=== PATIENT | male | born 1985 | race Caucasian/White ===

== ENCOUNTER 2021-05-07 16:29 | Outpatient (CLI) | payer BC, SELFPAY ==
--- NOTE | ~2021-05-07 | US_ITS ---
EXAMINATION: US abdomen complete DATE: 05/07/2021 16:52 INDICATION: Alcohol dependence in remission. Generalized abdominal pain. TECHNIQUE: Multiple grayscale and Doppler ultrasound images of the abdomen were obtained. COMPARISON: None FINDINGS: The pancreatic head and body are normal in appearance. The pancreatic tail is not visualized. The pr oximal to mid inferior vena cava is normal. Normal abdominal aorta measuring 2.0 cm in diameter proxi myranda, 1.7 cm in the mid aorta and 1.8 cm in the distal aorta. Liver has normal echogenicity and cont our, with a smooth surface. No liver lesion identified. No intrahepatic biliary duct dilation suspect ed. Portal venous flow was seen in the hepatopetal, normal direction and has normal Doppler waveform. The gallbladder is normal in appearance. There is no cholelithiasis. The common bile duct measures 4 mm, which is normal. Sonographic Suh sign was reported as negative by the glass vial bending conveyor feeder. There is normal renal contour and echogenicity bilaterally. The right kidney measures 9.5 x 4.0 x 4.3 cm and the left 9.4 x 5.8 x 5.2 cm. There are no focal renal lesions identified. There is no hydronephrosi s. Normal spleen measuring 7.4 cm in maximal length. IMPRESSION: 1. Normal abdominal ultrasound. Reviewed, dictated and finalized at location A. TION MANAGER
== END 2021-05-07 16:30 ==
LOC: MICIMG 16:30
PROVIDERS: PCP Family Medicine; Visit Provider Physician Assistant Medical
DX: F10.21 Alcohol dependence, in remission (principal); R10.84 Generalized abdominal pain
CPT/HCPCS: 76700

== ENCOUNTER 2021-05-23 01:07 | Day surgery (SDC) | payer BC, SELFPAY ==
[2021-05-13 09:04] VITALS: BMI 23.1
[2021-05-23 06:19] VITALS: BP 113/85; PULSE 124; RESP 17; TEMP 36.6; O2SAT 100; BMI 22.2
[2021-05-23] MEDS: LACTATED RINGERS 1,000 ML 150 ML IV CONT (06:21)
--- NOTE | 2021-05-23 06:54 | P.HP_ITS ---
History of Present Illness History of Present Illness Consent: Risks, benefits, and alternatives have been discussed and questions answered. Patient agrees to proceed with procedure. Chief complaint: diarrhea Narrative: Steve Figueroa is a 35 year old male Review of Systems Review of Systems: All systems reviewed & are unremarkable except as noted in HPI and below PMFSH Past Medical History Medical History Alcoholism Anxiety BMI 22.0-22.9, adult Surgical History Surgical History H/O shoulder surgery Family History Family History Father Hypertension Mother Breast cancer Sibling Hypertension Other Anxiety Depression Social History Social History Smoking status: Former smoker Tobacco type: e-cigarettes/vaping Alcohol intake: former Alcohol use details: Quit 8-9 months ago. Alcohol abuse fifth of vodka per day prior to quitting. 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 Gender identity (if verbalized by the patient): Male Meds Home Medications and Allergies Home Medications Medication Instructions Recorded Confirmed Type buspirone 10 mg tablet 10 mg PO TID 09/20/20 05/23/21 History trazodone 50 mg tablet 50 mg PO QHS PRN 09/20/20 05/23/21 History diphenoxylate-atropine 2.5 1 tablet PO TID PRN #30 tablet 04/30/21 05/23/21 Rx mg-0.025 mg tablet omeprazole 40 mg capsule,delayed 40 mg PO DAILY #30 cap 04/30/21 05/23/21 Rx release vilazodone 20 mg tablet 20 mg PO DAILY #30 tablet 04/30/21 05/23/21 Rx Allergies Allergy/AdvReac Type Severity Reaction Status Date / Time No Known Allergies Allergy Verified 05/23/21 06:18 Vital Signs Vital Signs - 24 hr 05/23/21 06:19 Temperature 36.6 C Pulse Rate 124 H Respiratory Rate 17 Blood Pressure 113/85 Pulse Oximetry 100
--- NOTE | 2021-05-23 07:04 | WPDGICN ---
Assessment and Plan Assessment and plan (1) Diarrhea: Qualifiers: Diarrhea type: unspecified type Qualified Code(s): R19.7 - Diarrhea, unspecified Code(s): R19.7 - Diarrhea, unspecified Status: Acute Assessment and Plan: he is not aware of any specific triggers or food intolerance his, because he has diarrhea every day no matter what he eats. He does not believe that he has been tested for celiac disease. We will proceed with colonoscopy today. I explained the procedures and risks including the possibilities of bleeding or perforation. (2) History of alcoholism: Code(s): F10.21 - Alcohol dependence, in remission Status: Acute Assessment and Plan: He has been sober for about 9 months, with no relapses (3) GERD (gastroesophageal reflux disease): Code(s): K21.9 - Gastro-esophageal reflux disease without esophagitis Status: Acute Assessment and Plan: he takes omeprazole daily. He does not have heartburn or dysphagia. His only other symptom the may be relevant is that he feels gaggy in the morning has of large amount of thick phlegm GI Consult Note Consult date/time: 05/23/21 07:04 HPI: Steve Figueroa is a 35 year old male Was referred to me because of chronic diarrhea. He states that he gave up alcohol about 8 or 9 months ago because he was drinking too much at that time he had noticed that he had had gastrointestinal issues including loose stools. Those symptoms improved quite a bit when he quit using alcohol, at least for a couple of months. Now however he has diarrhea every day with a great deal of urgency, particularly after meal. He may have up to 5 or 6 loose stools per day. He saw blood once in the stool but the toilet flushed automatically before he could ascertain if it really was blood. There has been no weight loss. He does not have any chronic abdominal pain. Lately he has noticed that on waking up in the morning he will feel gag the and will have large amount of phlegm in his throat. He does not however have much in way of heartburn symptoms, although he has been on omeprazole 40 mg a day. His weight has been stable. He is not aware of any family history of inflammatory bowel disease, celiac disease or other digestive diseases. There is a strong family history of malignancies but not gastrointestinal malignancies Review of Systems Review of Systems: All systems reviewed & are unremarkable except as noted in HPI and below PMFSH Past Medical History Medical History Alcoholism Anxiety BMI 22.0-22.9, adult Surgical History Surgical History H/O shoulder surgery Family History Family History Father Hypertension Mother Breast cancer Sibling Hypertension Other Anxiety Depression Social History Social History Smoking status: Former smoker Tobacco type: e-cigarettes/vaping Alcohol intake: former Alcohol use details: Quit 8-9 months ago. Alcohol abuse fifth of vodka per day prior to quitting. 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
--- NOTE | 2021-05-23 07:20 | P.PNAN_ITS ---
Anes - Initial Pre Proc Eval Procedure: Operation Date: 05/23/21 07:30 Proposed Procedures p Colonoscopy - Ernesto Slade MD Date/Time: 05/23/21 07:20 Surgeon: Ernesto Slade MD Pre Op Diagnosis: diarrhea Patient Data Age: 35 Gender: M Height: 1.78 m Weight: 70.4 kg Last Vital Signs Temp 98 F 05/23/21 06:19 Pulse 124 H 05/23/21 06:19 Resp 17 05/23/21 06:19 BP 113/85 05/23/21 06:19 Pulse Ox 100 05/23/21 06:19 Allergies Allergy/AdvReac Type Severity Reaction Status Date / Time No Known Allergies Allergy Verified 05/23/21 06:18 Home Medications Medication Instructions Recorded Confirmed Type buspirone 10 mg tablet 10 mg PO TID 09/20/20 05/23/21 History trazodone 50 mg tablet 50 mg PO QHS PRN 09/20/20 05/23/21 History diphenoxylate-atropine 2.5 1 tablet PO TID PRN #30 tablet 04/30/21 05/23/21 Rx mg-0.025 mg tablet omeprazole 40 mg capsule,delayed 40 mg PO DAILY #30 cap 04/30/21 05/23/21 Rx release vilazodone 20 mg tablet 20 mg PO DAILY #30 tablet 04/30/21 05/23/21 Rx Patient hx anesthesia problems: none Family hx anesthesia problems: none Results Review: All pre-operative results and documents have been reviewed as part of the pre-operative evaluation. [facility] Past Medical History Medical History Alcoholism Anxiety BMI 22.0-22.9, adult Surgical History Surgical History H/O shoulder surgery Family History Family History Father Hypertension Mother Breast cancer Sibling Hypertension Other Anxiety Depression Social History Social History Smoking status: Former smoker Tobacco type: e-cigarettes/vaping Alcohol intake: former Alcohol use details: Quit 8-9 months ago. Alcohol abuse fifth of vodka per day prior to quitting. 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 Informed Consent: The patient's anesthetic plan and its attendant risks and benefits were discussed with the patient/family/POA. Questions were solicited and answers provided to the satisfaction of the patient/family/POA.
[2021-05-23 07:46] VITALS: BP 126/90; PULSE 92; RESP 17; O2SAT 100
[2021-05-23 07:56] VITALS: BP 128/97; PULSE 90; RESP 16; O2SAT 100
[2021-05-23 08:06] VITALS: BP 136/99; PULSE 78; RESP 17; O2SAT 100
--- NOTE | 2021-05-23 08:16 | SUR.PHASEII ---
Pt stated he feels like he poked himself in the eye Dr. Wisdom at bedside. Left eye tearful no redness,pain or light sensitivity. Dr. Wisdom (anesthesia) aware. Instructed pt to call primary care physician if he experiences any sypmtoms of corneal abrasion pt states understanding.
== END 2021-05-23 08:20 | disposition home or self-care (01) ==
PROVIDERS: PCP Family Medicine; Visit Provider Internal Medicine Gastroenterology
PROC: 0DJD8ZZ Inspection of Lower Intestinal Tract, Via Natural or Artificial Opening Endoscopic (ICD-10-PCS; CPT 45378; principal; 2021-05-23 07:30)
DX: R19.7 Diarrhea, unspecified (principal); K64.8 Other hemorrhoids; F10.21 Alcohol dependence, in remission; K21.9 Gastro-esophageal reflux disease without esophagitis; F41.9 Anxiety disorder, unspecified; F12.90 Cannabis use, unspecified, uncomplicated
CPT/HCPCS: 45380; 88305; J2704; J7120

== ENCOUNTER 2021-06-10 08:01 | Outpatient (CLI) | payer BC, SELFPAY ==
--- NOTE | ~2021-06-10 | XR_ITS ---
EXAMINATION: XR UGIAC w small bowel DATE: 06/10/2021 08:54 INDICATION: Diarrhea, unspecified. TECHNIQUE: The patient drank thick barium, gas-producing crystals, and thin barium. Fluoroscopy of th e esophagus, stomach, and small bowel was performed. Fluoroscopy exposure time was 0.5 minutes. Radio graphs of the abdomen were obtained. The total number of images was 279. COMPARISON: None. FINDINGS: UPPER GASTROINTESTINAL SERIES: There is no mass or stricture of the esophagus. Esophageal motility is normal. There is no hiatal her bubba. There was no gastroesophageal reflux with provocative maneuvers. The stomach shows a normal fold ing pattern. SMALL BOWEL SERIES: The small bowel shows a normal folding pattern. Specifically, the terminal ileum is normal. Transit t joann to the colon was 15 minutes. IMPRESSION: 1. Normal upper gastrointestinal series. 2. Normal small bowel series. Reviewed, dictated and finalized at location A. HETER HAND
== END 2021-06-10 08:02 | disposition home or self-care (01) ==
PROVIDERS: PCP Family Medicine; Visit Provider Internal Medicine Gastroenterology
DX: R19.7 Diarrhea, unspecified (principal)
CPT/HCPCS: 74246; 74248

== ENCOUNTER 2022-01-09 09:33 | Outpatient (CLI) | payer BC, SELFPAY ==
--- NOTE | 2022-01-09 11:30 | NEURO_ITS ---
Impression: # Complains of muscle spasms in right lower extremity. # Normal nerve conduction study in both lower extremities. # Needle/EMG exam revealed neurogenic changes in right posterior tibial and gastroc muscles but no active fibs. # Clinical correlation recommended; Higher involvement needs to be ruled out, if MRI of lumbar spine is negative then further evaluation recommended. Nerve Conduction Studies Anti Sensory Summary Table Stim Site NR Peak (ms) P-T Amp (?V) Site1 Site2 Delta-P (ms) Dist (cm) Lukasz (m/s) Left Sup Fibular Anti Sensory (Ant Lat Mall) 14 cm 3.3 22.7 14 cm Ant Lat Mall 3.3 16.0 48 Right Sup Fibular Anti Sensory (Ant Lat Mall) 14 cm 3.4 20.9 14 cm Ant Lat Mall 3.4 16.0 47 Left Sural Anti Sensory (Lat Mall) Calf 4.2 27.5 Calf Lat Mall 4.2 18.0 43 Right Sural Anti Sensory (Lat Mall) Calf 3.3 14.2 Calf Lat Mall 3.3 16.0 48 Motor Summary Table Stim Site NR Onset (ms) O-P Amp (mV) Site1 Site2 Delta-0 (ms) Dist (cm) Lukasz (m/s) Left Peroneal Motor (Vastus Med) Ankle 4.9 4.6 Popit Ankle 9.5 40.0 42 Popit 14.4 3.5 Right Peroneal Motor (Vastus Med) Ankle 4.9 5.2 Popit Ankle 8.2 38.0 46 Popit 13.1 4.8 Left Tibial Motor (Abd Vo Brev) Ankle 5.3 12.8 Knee Ankle 9.5 42.0 44 Knee 14.8 10.6 Right Tibial Motor (Abd Vo Brev) Ankle 5.1 9.6 Knee Ankle 9.6 43.0 45 Knee 14.7 8.2 F Wave Studies NR F-Lat (ms) L-R F-Lat (ms) Left Peroneal (Mrkrs) (EDB) 52.15 0.70 Right Peroneal (Mrkrs) (EDB) 52.85 0.70 Left Tibial (Mrkrs) (Abd Hallucis) 53.48 0.08 Right Tibial (Mrkrs) (Abd Hallucis) 53.40 0.08 EMG Side Muscle Nerve Root Ins Act Fibs Amp Dur Recrt Comment Right AntTibialis Dp Br Fibular L4-5 Nml Nml Nml Nml Nml Right Gastroc Tibial S1-2 Nml Nml Nml >12ms Reduced Right Fibularis Long Sup Br Fibular L5-S1 Nml Nml Nml Nml Nml Right Flex Dig Long Tibial L5-S2 Nml Nml Nml Nml Nml Right Ext Dig Brev Dp Br Fibular L5, S1 Nml Nml Nml Nml Nml Left AntTibialis Dp Br Fibular L4-5 Nml Nml Nml Nml Nml Left Gastroc Tibial S1-2 Nml Nml Nml Nml Nml Left Fibularis Long Sup Br Fibular L5-S1 Nml Nml Nml Nml Nml Left Flex Dig Long Tibial L5-S2 Nml Nml Nml Nml Nml Left Ext Dig Brev Dp Br Fibular L5, S1 Nml Nml Nml Nml Nml MTDD
== END 2022-01-09 09:34 | disposition home or self-care (01) ==
PROVIDERS: PCP Family Medicine; Visit Provider Family Medicine
DX: M62.838 Other muscle spasm (principal)
CPT/HCPCS: 95886; 95910

== ENCOUNTER 2022-01-20 16:23 | Outpatient (CLI) | payer BC, SELFPAY ==
--- NOTE | ~2022-01-20 | MR_ITS ---
. EXAMINATION: MR lumbar spine wo con DATE: 01/20/2022 17:11 INDICATION: Leg weakness. TECHNIQUE: Magnetic resonance imaging (MRI) of the lumbar spine was performed without intravenous con trast. Sequences included sagittal T2-weighted FSE, sagittal T2-weighted FS FSE, sagittal T1-weighted FSE, and axial T2-weighted FSE. COMPARISON: None FINDINGS: There is 3 degrees levocurvature of lumbar spine. Vertebral body heights are normal. There is moderately decreased disc height at L5-S1. The distal spinal cord signal intensity is normal. The conus medullaris is at L1. The following disc levels are specifically discussed: L1-L2: The disc does not extend beyond the endplate margin. There is no facet joint osteoarthritis. T here is no neural foraminal stenosis. There is no central canal stenosis. L2-L3: The disc does not extend beyond the endplate margin. There is mild bilateral facet joint osteo arthritis. There is no neural foraminal stenosis. There is no central canal stenosis. L3-L4: The disc is mildly bulging. There is mild bilateral facet joint osteoarthritis. There is mild bilateral neural foraminal stenosis. There is no central canal stenosis. L4-L5: The disc is bulging. There is mild bilateral facet joint osteoarthritis. There is mild right a nd moderate left neural foraminal stenosis. There is mild central canal stenosis. L5-S1: The disc is bulging and has an annular fissure. There is mild bilateral facet joint osteoarthr itis. There is mild bilateral neural foraminal stenosis. There is mild central canal stenosis. IMPRESSION: 1. Moderate lower lumbar spondylosis. Reviewed, dictated and finalized at location A.
== END 2022-01-20 16:24 ==
LOC: MICIMG 16:24
PROVIDERS: PCP Family Medicine; Visit Provider Family Medicine
DX: R29.898 Other symptoms and signs involving the musculoskeletal system (principal); M47.816 Spondylosis without myelopathy or radiculopathy, lumbar region
CPT/HCPCS: 72148

== ENCOUNTER → 2022-07-16 09:46 | Outpatient (CLI) | payer BC, SELFPAY ==
--- NOTE | ~2022-07-16 | US_ITS ---
EXAMINATION: US soft tissue head and neck DATE: 07/16/2022 10:04 INDICATION: Palpable abnormality at the right side of the neck TECHNIQUE: Multiple grayscale and Doppler ultrasound images of the region of concern at the right nec k were obtained. COMPARISON: None FINDINGS: Therefore mildly prominent, relatively superficial subcutaneous lymph nodes are seen at the region of concern each with typical central fatty hilum and measuring up to 8 mm in maximal short axis diamete r which remains within normal limits. No other abnormal masses or fluid collections identified. IMPRESSION: 1. Elbow abnormality corresponds to a few mildly prominent but still normal-sized relatively superfic ial subcutaneous lymph nodes which are likely reactive. Recommend clinical follow-up with repeat imag ing should there be progression on physical exam or as clinically indicated. Reviewed, dictated and finalized at location B. NISTRATIVE SERVICES COORDINATOR IMPRESSION: 1. Elbow abnormality corresponds to a few mildly prominent but still normal-siz ed relatively superficial subcutaneous lymph nodes which are likely reactive. R ecommend clinical follow-up with repeat imaging should there be progression on physical exam or as clinically indicated.
== END ==
PROVIDERS: PCP Family Medicine; Visit Provider Nurse Practitioner Family
DX: R59.0 Localized enlarged lymph nodes (principal)
CPT/HCPCS: 76536

== ENCOUNTER 2024-11-22 20:28 | Observation (INO) | payer BC, SELFPAY ==
[2024-11-22] VITALS (7 sets, daily range): BP systolic 113–134; BP diastolic 85–100; PULSE 93–106; RESP 16–19; TEMP 36.8; O2SAT 95–98
--- NOTE | ~2024-11-22 | US_ITS ---
US abdomen limited INDICATION: Elevated liver function tests PROCEDURE: Realtime right upper abdominal ultrasound. COMPARISON: No prior studies for comparison. FINDINGS: The pancreas is normal without focal mass or pancreatic ductal dilation. Liver echotexture is increased, consistent with fatty infiltration. No discrete hepatic masses. There is normal direc tional flow in the portal vein. The gallbladder is normal without stones, gallbladder wall thickening or pericholecystic fluid. Comm on bile duct measures 3 mm. No sonographic Suh's sign. IMPRESSION: 1: Fatty infiltration of the liver. Reviewed, dictated and finalized at location A.
--- NOTE | 2024-11-22 20:37 | ECG_ITS ---
Test Date: 2024-11-22 20:43:59 Measurements Intervals [place] Rate: 103 P: 51 ME: 136 QRS: 23 QRSD: 105 T: 48 QT: 353 QTc: 463 Interpretive Statements SINUS TACHYCARDIA INCOMPLETE RIGHT BUNDLE BRANCH BLOCK BORDERLINE ECG No previous ECG available for comparison Electronically Signed On 11-23-2024 06:29:02 CDT by Kirit Wood D.O.
--- OUTSIDE RECORDS SUMMARY | 2024-11-22 20:54 | XMS_ITS | Referral Summary ---
Author Organization [facility] Address [address] [place] [id number] Care Team Providers Care Electronics Technician Name Role Phone Cristofer Gentile MD Primary Care Provider [phone] Allergies No known active allergies Medications traZODone (DESYREL) 50 mg tabletIndicatio ns:SUSAN (generalized anxiety disorder) Take 1 tablet (50 mg total) by mouth nightly 30 tablet 0 Active naltrexone (DEPADE) 50 mg tabletIndicatio ns:alcoholism Take 1 tablet (50 mg total) by mouth every morning 30 tablet 0 Active hydrOXYzine (VISTARIL) 50 mg capsuleIndicati ons:SUSAN (generalized anxiety disorder) Take 1 capsule (50 mg total) by mouth 3 (three) times a day as needed for anxiety 90 capsule 0 Active busPIRone (BUSPAR) 10 mg tabletIndicatio ns:Generalized Anxiety Disorder Take 1 tablet (10 mg total) by mouth 3 (three) times a day 90 tablet 0 Active tadalafiL (CIALIS) 20 mg tabletIndicatio ns:ED (erectile dysfunction) of organic origin Take 1 tablet (20 mg total) by mouth every third day as needed for erectile dysfunction 10 tablet 0 Active Active Problems Problem Noted Date Diagnosed Date Alcoholism in remission 05/30/2020 Assessment & Plan (05/30/2020 3:55 PM MARKET RESEARCH ASSOCIATE): Recently finished inpatient [place] on 04/26/20. He has been doing well since discharge. He is actively seeing a therapist and aftercare program. I recommend that he establish with a psychiatrist for medical management. ED (erectile dysfunction) of organic origin 02/2020 Assessment & Plan (05/30/2020 3:48 PM MARKET RESEARCH ASSOCIATE): New. We discussed options. Trial of Aidenada MAKENZIE Raynaud disease 05/30/2020 Assessment & Plan (05/30/2020 3:54 PM MARKET RESEARCH ASSOCIATE): Intermittent. Aggravated by cold. Advised to keep hands warm. SUSAN (generalized anxiety disorder) 08/11/2019 Assessment & Plan (05/30/2020 3:49 PM MARKET RESEARCH ASSOCIATE): SUSAN is controlled. Continue current treatment regimen. Regular aerobic exercise. Psychological condition will be reassessed at the next regular appointment. Actively seeing a counsellor. Assessment & Plan (08/11/2019 10:35 AM MARKET RESEARCH ASSOCIATE): SUSAN is newly identified. Regular aerobic exercise. Referral to psychological counseling. Begin SSRI Psychological condition will be reassessed in 3 months. Panic disorder 08/11/2019 Assessment & Plan (08/11/2019 10:35 AM MARKET RESEARCH ASSOCIATE): Panic is newly identified. Regular aerobic exercise. Referral to psychological counseling. Begin SSRI Psychological condition will be reassessed in 3 months. Prehypertension 02/08/2019 Assessment & Plan (05/30/2020 3:50 PM MARKET RESEARCH ASSOCIATE): PreHypertension is improving with lifestyle modifications Continue current treatment regimen. Regular aerobic exercise. Blood pressure will be reassessed at the next regular appointment. Assessment & Plan (02/08/2019 9:20 AM CDT): Prehypertension is newly identified. Dietary sodium restriction. Regular aerobic exercise. Ambulatory blood pressure monitoring. Blood pressure will be reassessed at the next regular appointment. Hay fever 02/04/2018 Resolved Problems Problem Noted Date Diagnosed Date Resolved Date Genital warts 02/04/2018 02/04/2019 Assessment & Plan (04/14/2018 9:10 AM CDT): [address] cryotherapy for 40 seconds each. Aftercare instructions given. Fabens PRN Immunizations Immunization Administration Dates Next Due Flucelvax Influenza Quad 04/27/2020 Influenza, Quadrivalent, Spl it, Preservative Free, Intramuscular 04/14/2018 Influenza, Unspecified 04/27/2020 Pneumococcal Polysaccharide PPV23 05/30/2020 Tdap 03/26/2014 Social History Tobacco Use Types Packs/Day Years Used Date Smoking Tobacco: Former Cigarettes 0.5 16 0 12/20/2001 - 12/20/2017 Smokeless Tobacco: Never Alcohol Use Standard Drinks/Week Comments Not Currently 0 (1 standard drink = 0.6 oz pur e alcohol) PHQ-2 Answer Date Recorded PHQ-2 Total Score (If total score is 3 or more points, staff should administer the PHQ-9) 0 05/30/2020 [facility] [place] [facility] Occupat ional [facility] - Occupational Stress Questionnaire Answer Date Recorded Feeling of Stress To some extent 02/08/2019 Exercise Vital Sign Answer Date Recorde d On average, how many days pe r week do you engage in moderate to strenuous exercise (like a brisk walk)? 7 days 05/30/2020 On average, how many minutes do you engage in exercise at this level? 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 [employer] Not on file Not on file Not on file Last Filed Vital Signs Vital Sign Reading Time Taken Comments Blood Pressure 110/62 05/30/2020 3:39 PM MARKET RESEARCH ASSOCIATE Pulse 110 05/30/2020 3:39 PM MARKET RESEARCH ASSOCIATE Temperature 36.8 C (98.2 F) 05/30/2020 3:39 PM MARKET RESEARCH ASSOCIATE Respiratory Rate 16 08/11/2019 10:2 3 AM MARKET RESEARCH ASSOCIATE Oxygen Saturation 98% 05/30/2020 3:39 PM MARKET RESEARCH ASSOCIATE Inhaled Oxygen Concentration - - Weight 70.7 kg (155 lb 14.4 oz) 05/30/2020 3:39 PM MARKET RESEARCH ASSOCIATE Height 181.6 cm (5' 11.5) 05/30/2020 3:39 PM CS T Body Mass Index 21.44 05/30/2020 3:39 PM MARKET RESEARCH ASSOCIATE Plan of Treatment Not on [place] [address] [facility] EPO Care Teams Electronics Technician Relationship Specialty Start Date End Date Cristofer Gentile MD [address] [place] [address] DR Jaylyn COLLINS [address] [place] [id number] PCP - General Internal Medicine 02/03/18
--- OUTSIDE RECORDS SUMMARY | 2024-11-22 20:54 | XMS_ITS | Clinical Summary ---
Author Organization [facility] Address [address] [place] [address] Phone Care Team Providers Care In Service Coordinator Name Role Phone Unavailable Primary Care Provider Unavailabl e Allergies No known active allergies Medications No known medications Social History Tobacco Use Types Packs/Day Years Used Date Smoking Tobacco: Every Day Cigarettes Alcohol Use Standard Drinks/Week Comments Yes 0 (1 standard drink = 0.6 oz pur e alcohol) socially Sex and Gender Information Value Date Recorded Sex Assigned at Not on file Legal Sex Male 11:03 AM ICING MAKER Gender Identity Not on file Sexual Orientation Not on file Last Filed Vital Signs Vital Sign Reading Time Taken Comments Blood Pressure 130/76 05/21/2014 11:24 AM ICING MAKER Pulse - - Temperature 36.9 C (98.5 F) 05/21/2014 11:24 AM ICING MAKER Respiratory Rate 18 05/21/2014 11:24 AM ICING MAKER Oxygen Saturation 100% 05/21/2014 11:24 AM ICING MAKER Inhaled Oxygen Concentration - - Weight 65.8 kg (145 lb) 05/21/2014 11:24 AM ICING MAKER Height 177.8 cm (5' 10) 05/21/2014 11:24 AM ICING MAKER Body Mass Index 20.81 05/21/2014 11:24 AM ICING MAKER Plan of Treatment Health Maintenance Due Date Last Done Comments DTAP/TDAP/TD VACCINES (1 - Tdap) 2004 HEPATITIS B VACCINES (1 of 3 - 19+ 3-dose series) 2004 INFLUENZA VACCINE (#1) 2024 HPV VACCINES Aged Out No longer eligi ble based on patient's age to complete this topic Insurance [facility] [id number]
--- OUTSIDE RECORDS SUMMARY | 2024-11-22 20:54 | XMS_ITS | Clinical Summary ---
Author Organization [facility] Address [address] [place] [id number] Care Team Providers Care Ward Helper Name Role Phone Cristofer Gentile MD Primary Care Provider [phone] Allergies No known active allergies Medications traZODone [...] 05/30/2020 Assessment & Plan (05/30/2020 3:55 PM HISTOTECHNOLOGIST): Recently finished inpatient [place] on 04/26/20. He has been doing well since discharge. He is actively seeing a therapist and aftercare program. I recommend that he establish with a psychiatrist for medical management. ED (erectile dysfunction) of organic origin 02/2020 Assessment & Plan (05/30/2020 3:48 PM HISTOTECHNOLOGIST): New. We discussed options. Trial of [place] MAKENZIE Raynaud disease 05/30/2020 Assessment & Plan (05/30/2020 3:54 PM HISTOTECHNOLOGIST): Intermittent. Aggravated by cold. Advised to keep hands warm. SUSAN (generalized anxiety disorder) 08/11/2019 Assessment & Plan (05/30/2020 3:49 PM HISTOTECHNOLOGIST): SUSAN is controlled. Continue current treatment regimen. Regular aerobic exercise. Psychological condition will be reassessed at the next regular appointment. Actively seeing a counsellor. Assessment & Plan (08/11/2019 10:35 AM HISTOTECHNOLOGIST): SUSAN is newly identified. Regular aerobic exercise. Referral to psychological counseling. Begin SSRI Psychological condition will be reassessed in 3 months. Panic disorder 08/11/2019 Assessment & Plan (08/11/2019 10:35 AM HISTOTECHNOLOGIST): Panic is newly identified. Regular aerobic exercise. Referral to psychological counseling. Begin SSRI Psychological condition will be reassessed in 3 months. Prehypertension 02/08/2019 Assessment & Plan (05/30/2020 3:50 PM HISTOTECHNOLOGIST): PreHypertension is improving with lifestyle modifications Continue [...] for 40 seconds each. Aftercare instructions given. [place] PRN Immunizations Immunization Administration Dates Next Due Flucelvax Influenza Quad 04/27/2020 Influenza, Quadrivalent, Spl it, Preservative Free, Intramuscular 04/14/2018 Influenza, Unspecified 04/27/2020 Pneumococcal Polysaccharide PPV23 05/30/2020 Tdap 03/26/2014 Surgical History Surgery Date Site/Laterality Comments SHOULDER ARTHROSCOPY Right Medical History Medical History Date Comments Genital warts Family History Medical History Relation Name Comments Hypertension Father Suicide Completion Father's Brother Suicide Completion Maternal Grandfather Breast cancer Mother Suicide Completion Mother's Brother mesothelioma Paternal Grandfather Relation Name Status Comments Father Father's Brother Maternal Grandfather Mother Mother's Brother Paternal Grandfather Social History Tobacco Use Types Packs/Day Years Used Date Smoking Tobacco: Former Cigarettes 0.5 16 0 12/20/2001 - 12/20/2017 Smokeless Tobacco: Never Alcohol Use Standard Drinks/Week Comments Not Currently 0 (1 standard drink = 0.6 oz pur e alcohol) PHQ-2 Answer Date Recorded PHQ-2 Total Score (If total score is 3 or more points, staff should administer the PHQ-9) 0 05/30/2020 [facility] [place] [facility] - Occupational Stress [...] on file Legal Sex Male 9:47 AM HISTOTECHNOLOGIST Gender Identity Not on file Sexual Orientation Not on file 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 [employer] Not on file Not on file Not on file Obstetrics History Last Filed Vital Signs Vital Sign Reading Time Taken Comments Blood Pressure 110/62 05/30/2020 3:39 PM HISTOTECHNOLOGIST Pulse 110 05/30/2020 3:39 PM HISTOTECHNOLOGIST Temperature 36.8 C (98.2 F) 05/30/2020 3:39 PM HISTOTECHNOLOGIST Respiratory Rate 16 08/11/2019 10:2 3 AM HISTOTECHNOLOGIST Oxygen Saturation 98% 05/30/2020 3:39 PM HISTOTECHNOLOGIST Inhaled Oxygen Concentration - - Weight 70.7 kg (155 lb 14.4 oz) 05/30/2020 3:39 PM HISTOTECHNOLOGIST Height 181.6 cm (5' 11.5) 05/30/2020 3:39 PM CS T Body Mass Index 21.44 05/30/2020 3:39 PM HISTOTECHNOLOGIST Plan of Treatment Not on file Insurance [facility] EPO Care Teams Ward Helper Relationship Specialty Start Date End Date Cristofer Gentile MD [address] [place] [address] DR Jayyln COLLINS [address] [place] [id number] PCP - General Internal Medicine 02/03/18
--- OUTSIDE RECORDS SUMMARY | 2024-11-22 20:54 | XMS_ITS | Clinical Summary ---
Author Organization [facility] Address [address] [place] [address] Care Team Providers Care Tapper Helper Name Role Phone Ez Enriquez MD Primary Care Provider [phone] Source Comments [facility],non-owned Affiliates and Associated Physician Practices is amultiple site organization consisting of ambulatory clinics and hospital sitesin [place], [place] and [place]. This disclosure is being madepursuant to the Care Everywhere program and may not contain all information available regarding this patient. Last updated 18.[facility] Allergies No known active allergies Medications * Be aware that medications may not be up to date on this document. Alwaysverify current medications with the patient. ibuprofen (MOTRIN) 600 MG tablet Take 1 Tab by mouth every 8 hours as needed for Pain. 20 Tab 0 03/26/2014 Active methylPREDNISol one (MEDROL DOSEPAK) 4 MG tablet Follow package insert dosing for six day supply. 21 Each 05/30/2018 Active diazePAM (VALIUM) 5 MG tablet Take 1 tablet by mouth 3 times daily as needed for Spasms 12 tablet 05/30/2018 Active HYDROcodone-joaquin taminophen (NORCO) 5-325 MG tablet Take 1 tablet by mouth every 4 hours as needed for Pain 15 tablet 05/30/2018 Active lidocaine (LIDODERM) 5 % patch Apply to low back q 24 hr-on 12 hr off 12 hr 15 patch 05/30/2018 Active Immunizations Immunization Administration Dates Next Due TDAP (7yrs+) 03/26/2014 Social History Tobacco Use Types Packs/Day Years Used Date Smoking Tobacco: Some Days Cigarettes Last attempted to quit: 05/22/2017 Smokeless Tobacco: Never Alcohol Use Standard Drinks/Week Comments Yes 0 (1 standard drink = 0.6 oz pur e alcohol) socially Sex and Gender Information Value Date Recorded Sex Assigned at Not on file Legal Sex Male 10:59 AM CDT Gender Identity Not on file Sexual Orientation Not on file Last Filed Vital Signs Vital Sign Reading Time Taken Comments Blood Pressure 124/83 05/30/2018 1:06 PM CISCO CONSULTANT Pulse 119 05/30/2018 1:06 PM CISCO CONSULTANT Temperature 36.9 C (98.4 F) 05/30/2018 1:06 PM CISCO CONSULTANT Respiratory Rate 18 05/30/2018 1:06 PM CISCO CONSULTANT Oxygen Saturation 100% 05/30/2018 1:06 PM CISCO CONSULTANT Inhaled Oxygen Concentration - - Weight 72.6 kg (160 lb) 05/30/2018 1:06 PM CISCO CONSULTANT Height 180.3 cm (5' 11) 05/30/2018 1:06 PM CISCO CONSULTANT Body Mass Index 22.32 05/30/2018 1:06 PM CISCO CONSULTANT Plan of Treatment Health Maintenance Due Date Last Done Comments HIV SCREENING 2000 HEPATITIS C SCREENING 10/24/2003 HEPATITIS B VACCINE (1 of 3 - 19+ 3-dose series) 2004 COVID-19 VACCINE ( - 2023-2 5 season) 2024 DTAP/TDAP/TD VACCINES (2 - T d or Tdap) 03/26/2024 03/26/2014 DEPRESSION SCREENING 06/22/2024 INFLUENZA VACCINE (Season Ended) 2025 ZOSTER VACCINE (1 of 2) 10/29/2035 HIB VACCINE Aged Out No longer eligi ble based on patient's age to complete this topic HPV VACCINE Aged Out No longer eligi ble based on patient's age to complete this topic MENINGOCOCCAL (Group B) VACC INE SHARED DECISION-MAKING Aged Out No longer eligibl e based on patient's age to complete this topic MENINGOCOCCAL GROUPS A/C/Y/W VACCINE Aged Out No longer eligible b ased on patient's age to complete this topic PNEUMOCOCCAL VACCINE Aged Out No long er eligible based on patient's age to complete this topic Insurance [employer] [facility] Care Teams Tapper Helper Relationship Specialty Start Date End Date Ez Enriquez MD [address] [place] [address] PCP - General 05/27/21
--- OUTSIDE RECORDS SUMMARY | 2024-11-22 20:54 | XMS_ITS | Clinical Summary ---
Author Organization [facility] Care Team Providers Care Director Of Contracts Name Role Phone Unavailable Primary Care Provider Unavailabl e Social History Tobacco Use Types Packs/Day Years Used Date Smoking Tobacco: Never Assessed Sex and Gender Information Value Date Recorded Sex Assigned at Not on file Legal Sex Male 8:48 PM CDT Gender Identity Not on file Sexual Orientation Not on file Plan of Treatment Health Maintenance Due Date Last Done Comments Hepatitis C Virus (HCV) Screening 1985 TdaP Immunization 1985 Hepatitis B Immunization (1 of 3 - 19+ 3-dose series) 2004 Influenza Immunization (#1) 02/21/202403/23, 04/27/2020 SARS-COV-2 Immunization ( season) 2024 04/19/2021, 08/24/2020 Respiratory Syncytial Virus (RSV) Immunization (Adult) (1 - 1-dose 75+ series) 2060 Meningococcal Immunization (ACWY) Aged Out No longer eligible b ased on patient's age to complete this topic Pneumococcal Immunization Combined Aged Out No longer eligible b ased on patient's age to complete this topic Rotavirus Immunization Aged Out No lo nger eligible based on patient's age to complete this topic
--- NOTE | 2024-11-22 21:00 | PC.NURSE ---
EMS gave this RN remainder of patients clonazepam prescriptions containing 20 tablets. Prescription placed in bag with patient sticker and given to ED charge.
[2024-11-22 21:02] LABS: Add Urine Microscopic? NO; Appearance Urine Clear (Clear); Bilirubin Urine Negative (Negative); Blood Urine Negative (Negative); Color Urine Yellow (Yellow); Glucose Urine UA Negative (Negative); Ketones Urine Negative (Negative); Leukocyte Esterase Ur Negative LEU/UL (Negative); Nitrate Urine Negative (Negative); Protein Urine Negative (Negative); Specific Grav Ur 1.008 (1.001-1.035); Urobilinogen Urine 0.2 mg/dL (<2.0)
[2024-11-22 21:04] LABS: Basophils Absolute Auto 0.1 K/mm3 (0.0-0.1); Basophils Percent Auto 2.1 % (0.2-1.2); Eosinophils Absolute Auto 0.2 K/mm3 (0-0.3); Eosinophils Percent Auto 4.4 % (0-4.4); Hematocrit 41.2 % (42.0-52.0); Lymphocytes Percent Auto 53.8 % (18.3-44.2); Mean Corpuscular Hemoglobin 33.7 pg (26-34); Mean Platelet Volume 10.3 fl (7.4-10.4); Monocytes Absolute Auto 0.3 K/mm3 (0.1-0.6); Monocytes Percent Auto 8.2 % (2.6-8.5); Neutrophils Absolute Auto 1.2 K/mm3 (1.3-6.7); Neutrophils Percent Auto 31.5 % (45.5-73.1); Platelet Count Result 196 k/mm3 (150-375); Red Blood Count 4.16 M/mm3 (4.6-6.20); Red Cell Distribution Width 13.6 % (11.5-14.5); White Blood Count 3.9 K/mm3 (4.5-10.0)
[2024-11-22 21:20] LABS: Amphetamine Screen Urine Negative (Negative); Barbiturate Screen Urine Negative (Negative); Benzodiazepines Screen Urine Negative (Negative); Cannabinoid Screen Urine Negative (Negative); Cocaine Screen Urine Negative (Negative); Opiate Screen Urine Negative (Negative); Phencyclidine Screen Urine Negative (Negative)
[2024-11-22 21:21] LABS: Acetaminophen < 10 ug/mL (10-30); Salicylate < 1.0 mg/dL (2-20)
[2024-11-22 21:22] LABS: Alanine Aminotransferase 110 U/L (6-50); Albumin Level 4.9 g/dL (3.5-5.1); Alkaline Phosphatase 79 U/L (38-126); Anion Gap 15 mmol/L (4-12); Aspartate Amino Transferase 158 U/L (17-59); Bilirubin,Total 0.4 mg/dL (0.2-1.3); Blood Urea Nitrogen 8 mg/dL (9-20); Calcium 9.1 mg/dL (8.4-10.2); Carbon Dioxide 23 mmol/L (22-30); Chloride 106 mmol/L (98-107); Estimated CRCL calculation 130 ml/min; Estimated Glomerular Filt Rate > 60; Glucose 97 mg/dL (65-110); Magnesium 1.8 mg/dL (1.6-2.3); Phosphorus 3.6 mg/dL (2.5-4.5); Sodium 144 mmol/L (137-145); Total Protein 8.1 g/dL (6.3-8.2)
[2024-11-22 21:33] LABS: Methadone Screen Urine Negative (Negative)
[2024-11-22 21:40] LABS: Ethanol 305 mg/dL (<10)
--- NOTE | 2024-11-22 21:55 | PC.NURSE ---
Spoke with Christina RN with poison control and she advised to watch patient for symptoms and support care and stated the peak time for Clonazepam is 1-4 hours and the peak time is 30-40 hours. Christina advised that pt VSS, AOx4 with drowsiness. She stated they would call back in a couple of hours for an update on patient. OLIMPIA Oliver made aware.
--- NOTE | 2024-11-22 21:55 | PC.NURSE ---
Pt given update and educated about the psych protocols.
[2024-11-22 22:01] LABS: SARS-CoV-2 RNA PCR Negative (Negative)
--- NOTE | 2024-11-22 22:04 | ED_ITS ---
HPI - Overdose General Chief Complaint: Overdose <OLIMPIA Ortiz Last Filed: 11/23/24 01:56> Stated Complaint: SI attempt/overdose <OLIMPIA Ortiz Last Filed: 11/23/24 01:56> Time Seen by Provider: 11/22/24 20:36 <OLIMPIA Ortiz Last Filed: 11/23/24 01:56> Source: patient <OLIMPIA Ortiz Last Filed: 11/23/24 01:56> Mode of arrival: EMS <OLIMPIA Ortiz Last Filed: 11/23/24 01:56> Limitations: no limitations <OLIMPIA Ortiz Last Filed: 11/23/24 01:56> History of Present Illness HPI Narrative: Patient is a 39-year-old male who presents the ED via EMS with report of intentional overdose and suicidal ideation. Patient reports a long history of alcoholism. States he recently began drinking again consistently over the last few days. He states his came home today and found him drunk and was very disappointed in him. He states he reached a level today where he just felt he could not go on any longer. Became suicidal and took a handful of his clonazepam and swallowed them around 7:00 p.m. Believes he took 10-15 tablets of 0.5 mg clonazepam. He did this in an attempt to kill himself. He then texted his the passwords and logins to his bank accounts. She then contacted EMS. Patient states he is feeling very groggy currently. Denies dizziness, lightheadedness, chest pain, shortness of breath. Feels disappointed in himself. States he has never become suicidal before and has never attempted any suicidal actions in the past. Denies homicidal ideation. Patient states over the past few days, he has been drinking up to a half a fifth of vodka per day. He states he has had withdrawal symptoms/aches/weakness in the past with stopping alcohol use but he reports this was many years ago. Denies any recent withdrawal symptoms. Denies history of withdrawal seizures. < Melody Lazaro PA-C - Last Filed: 11/23/24 01:56> Related Data Home Medications: Home Medications ?Medication ?Instructions ?Recorded ?Confirmed ?Last Taken ?Type clonazepam 0.5 mg tablet 0.5 mg PO Q12H PRN anxiety 10/24/21 11/23/24 Unknown History vilazodone 40 mg tablet (Viibryd) 40 mg PO DAILY 12/11/22 11/23/24 Unknown History naltrexone 50 mg tablet 50 mg PO DAILY 10/28/23 11/23/24 Unknown History <Melody Lazaro PA-C - Last Filed: 11/23/24 01:56> Allergies/Adverse Reactions: Allergies Allergy/AdvReac Type Severity Reaction Status Date / Time No Known Allergies Allergy Verified 11/02/24 07:33 <Melody Lazaro PA-C - Last Filed: 11/23/24 01:56> Review of Systems 2 Review of Systems: All systems reviewed & are unremarkable except as noted in HPI. <Melody Lazaro PA-C - Last Filed: 11/23/24 01:56> All systems reviewed & are unremarkable except as noted in HPI and below < Melody Lazaro PA-C - Last Filed: 11/23/24 01:56> [facility] Past Medical History Medical History: Medical History (Updated 11/23/24 @ 03:02 by Philly Raymond PA-C) Depression BMI 20.0-20.9, adult Alcoholism Anxiety <Melody Lazaro PA-C - Last Filed: 11/23/24 01:56> Surgical History Surgical History: Surgical History (Updated 11/23/24 @ 02:34 by Philly Raymond PA-C) History of repair of right rotator cuff <Melody Lazaro PA-C - Last Filed: 11/23/24 01:56> Family History Family History: Family History Father Hypertension Mother Dupuytrens contracture Breast cancer Sibling Hypertension Grandparent Depression Grandparent Anxiety <Melody Lazaro PA-C - Last Filed: 11/23/24 01:56> Social History Social History: Social History (Updated 11/23/24 @ 03:03 by Philly Raymond PA-C) Social History: Surrogate medical decision maker: Eulalio Mohan, spouse. Code status: Full code. Years smoked: 15 Smoking status: Former smoker Tobacco type: e-cigarettes/vaping Second hand tobacco smoke exposure: Yes Alcohol intake: former Alcohol use details: Longstanding history of alcohol abuse. Began drinking again 11/20/2024, half of a 5th a day. Substance use: never Substance use type: marijuana Do You Feel Safe in your Home?: Yes Lack of Transportation: No Lack of Food: Never True Current Housing: I Have Housing Concerned About Future Housing: No Difficulty Paying Gas/Electric Bills: No Difficulty Paying for Meds: No Currently Unemployed: No Education: Associate Degree Difficulty w/ Childcare or Family Care: No Spiritual care concerns: No <Melody Lazaro PA-C - Last Filed: 11/23/24 01:56> Exam 2 Narrative: GENERAL: Mildly uncomfortable appearing, thin, non-toxic, in no acute distress. HEAD: Normocephalic, atraumatic. RESPIRATORY: Airway patent, respirations nonlabored. Clear to auscultation bilaterally, no rales, rhonchi, wheezing. CARDIOVASCULAR: Borderline tachycardic with regular rhythm without murmurs, rubs, or gallops. MUSCULOSKELETAL: Moves all extremities. No gross deformities. SKIN: Warm, dry, normal color. NEURO: A&O X3. Speech clear. Cranial nerves II-XII grossly intact. Steady gait. No ataxic movements. No focal deficits. PSYCHIATRIC: Tearful, labile mood. Normal interaction. <Melody Lazaro PA-C - Last Filed: 11/23/24 01:56> Course OIL PIT ATTENDANT/PA Physician Supervision I am aware this patient presented and, based on reported amount ingested, poison control recommending extended observation period, despite negative UDS. Patient has been hemodynamically stable. I was available for consultation while he was in the ED and did see him from the doorway while in the ED but otherwise was not directly invovled in his care and did not personally evaluate him. < Carly Maldonado MD - Last Filed: 11/28/24 05:05> Vital Signs Vital signs: Vital Signs Temperature 98.2 F 11/22/24 20:37 Pulse Rate 98 11/22/24 20:37 Respiratory Rate 19 11/22/24 20:37 Blood Pressure 133/100 H 11/22/24 20:37 Pulse Oximetry 98 11/22/24 20:37 Oxygen Delivery Room Air 11/22/24 20:37 Temperature 98.1 F 11/24/24 07:41 Pulse Rate 86 11/24/24 08:00 Respiratory Rate 14 11/24/24 08:00 Blood Pressure 129/99 H 11/24/24 07:41 Pulse Oximetry 100 11/24/24 08:00 Oxygen Delivery Room Air 11/24/24 08:00 <Melody Lazaro PA-C - Last Filed: 11/23/24 01:56> Vital Signs Temperature 98.2 F 11/22/24 20:37 Pulse Rate 98 11/22/24 20:37 Respiratory Rate 19 11/22/24 20:37 Blood Pressure 133/100 H 11/22/24 20:37 Pulse Oximetry 98 11/22/24 20:37 Oxygen Delivery Room Air 11/22/24 20:37 Temperature 98.1 F 11/24/24 07:41 Pulse Rate 86 11/24/24 08:00 Respiratory Rate 14 11/24/24 08:00 Blood Pressure 129/99 H 11/24/24 07:41 Pulse Oximetry 100 11/24/24 08:00 Oxygen Delivery Room Air 11/24/24 08:00 <Carly Maldonado MD - Last Filed: 11/28/24 05:05> MDM - Overdose MDM Narrative Medical decision making narrative: Patient presented to ED with suicidal ideation, intentional overdose on clonazepam. Denies ever having suicidal thoughts or actions in the past. Recently relapsed with alcoholism and has been drinking consistently over the past few days. Up to half a 5th of vodka per day. Vital signs are stable upon arrival. Patient is neurologically intact. ED psych workup was initiated. EKG with sinus tachycardia. Borderline QTC at 463. Basic laboratory studies are mostly unremarkable. Very mild transaminitis. Urine drug screen did result negative, however was advised by poison Control that benzodiazepines sometimes to not show up on basic drug screens. Additional drug screen will be ordered. Alcohol level is 305. Poison control was contacted regarding overdose and advised half life of amount of Klonopin patient took is 30-40 hours. Will need to be monitored for this time with supportive care. Patient will be admitted for further evaluation, continued monitoring for drug overdose and alcoholic withdrawal symptoms. Will need medical clearance before psychiatric evaluation by crisis. [facility] protocol ordered. Discussed case with LORE Castellanos hospitalist, accepted patient for admission. Advised to go to ICU for suicidal precautions. Discussed case with Dr. Valadez, technology sales representative, agrees w/ plan, will consult. <FREDDY Ortiz - Last Filed: 11/23/24 01:56> Medical Records Attestation: I reviewed the patient's medical records. <Melody Lazaro PA-C - Last Filed: 11/23/24 01:56> Lab Data Attestation: I reviewed the patient's lab results. <Melody Lazaro PA-C - Last Filed: 11/23/24 01:56> Result diagrams: 11/24/24 03:56 11/24/24 03:56 <OLIMPIA Ortiz Last Filed: 11/23/24 01:56> Labs: Lab Results 11/22/24 11/22/24 Range/Units 20:51 20:54 WBC 3.9 L (4.5-10.0) K/mm3 RBC 4.16 L (4.6-6.20) M/mm3 Hgb 14.0 (14.0-18.0) g/dL Hct 41.2 L (42.0-52.0) % MCV 99.0 (80-100) fl MCH 33.7 (26-34) pg MCHC 34.0 (32-36) g/dl RDW 13.6 (11.5-14.5) % Plt Count 196 (150-375) k/mm3 MPV 10.3 (7.4-10.4) fl Immature Gran % (Auto) 0.0 (0-0.5) % Neut % (Auto) 31.5 L (45.5-73.1) % Lymph % (Auto) 53.8 H (18.3-44.2) % Valley % (Auto) 8.2 (2.6-8.5) % Eos % (Auto) 4.4 (0-4.4) % Baso % (Auto) 2.1 H (0.2-1.2) % Lymph # (Auto) 2.10 (0.9-3.2) K/mm3 Valley # (Auto) 0.3 (0.1-0.6) K/mm3 Eos # (Auto) 0.2 (0-0.3) K/mm3 Baso # (Auto) 0.1 (0.0-0.1) K/mm3 Abs Immat Gran (auto) 0.00 (0.00-0.031) K/mm3 Absolute Neuts (auto) 1.2 L (1.3-6.7) K/mm3 Absolute Nucleated RBC 0.000 (0.0-0.012) K/mm3 Nucleated RBC % 0.0 (0.0-0.2) % Sodium 144 (137-145) mmol/L Potassium 4.2 (3.4-5.0) mmol/L Chloride 106 (98-107) mmol/L Carbon Dioxide 23 (22-30) mmol/L Anion Gap 15 H (4-12) mmol/L BUN 8 L (9-20) mg/dL Creatinine 0.62 L (0.7-1.3) mg/dL Estim Creat Clear Calc 130 ml/min Estimated GFR > 60 (59 - ) Glucose 97 (65-110) mg/dL Calcium 9.1 (8.4-10.2) mg/dL Phosphorus 3.6 (2.5-4.5) mg/dL Magnesium 1.8 (1.6-2.3) mg/dL Total Bilirubin 0.4 (0.2-1.3) mg/dL AST 158 H (17-59) U/L ALT 110 H (6-50) U/L Alkaline Phosphatase 79 (38-126) U/L Total Protein 8.1 (6.3-8.2) g/dL Albumin 4.9 (3.5-5.1) g/dL TSH 1.030 (0.465-4.680) uIU/mL Urine Color Yellow (Yellow) Urine Appearance Clear (Clear) Urine pH 6.0 (5.0-9.0) Ur Specific [place] 1.008 (1.001-1.035) Urine Protein Negative (Negative) mg/dL Urine Glucose (UA) Negative (Negative) mg/dL Urine Ketones Negative (Negative) mg/dL Ur Blood (Man) Negative (Negative) Urine Nitrate Negative (Negative) Urine Bilirubin Negative (Negative) Urine Urobilinogen 0.2 (<2.0) mg/dL Leukocyte Esterase Rfl Negative (Negative) CARLOS MANUEL/UL Salicylates < 1.0 L (2-20) mg/dL Urine Opiates Screen Negative (Negative) Urine Methadone Screen Negative (Negative) Acetaminophen < 10 L (10-30) ug/mL Ur Barbiturates Screen Negative (Negative) Ur Phencyclidine Scrn Negative (Negative) Ur Amphetamine Screen Negative (Negative) U Benzodiazepines Scrn Negative (Negative) Urine Cocaine Screen Negative (Negative) U Cannabinoids Screen Negative (Negative) Ethyl Alcohol 305 H* (<10) mg/dL SARS-CoV-2 RNA (RT-PCR) Negative (Negative) <Melody Lazaro PA-C - Last Filed: 11/23/24 01:56> Lab Results 11/22/24 11/22/24 Range/Units 20:51 20:54 WBC 3.9 L (4.5-10.0) K/mm3 RBC 4.16 L (4.6-6.20) M/mm3 Hgb 14.0 (14.0-18.0) g/dL Hct 41.2 L (42.0-52.0) % MCV 99.0 (80-100) fl MCH 33.7 (26-34) pg MCHC 34.0 (32-36) g/dl RDW 13.6 (11.5-14.5) % Plt Count 196 (150-375) k/mm3 MPV 10.3 (7.4-10.4) fl Immature Gran % (Auto) 0.0 (0-0.5) % Neut % (Auto) 31.5 L (45.5-73.1) % Lymph % (Auto) 53.8 H (18.3-44.2) % Valley % (Auto) 8.2 (2.6-8.5) % Eos % (Auto) 4.4 (0-4.4) % Baso % (Auto) 2.1 H (0.2-1.2) % Lymph # (Auto) 2.10 (0.9-3.2) K/mm3 Valley # (Auto) 0.3 (0.1-0.6) K/mm3 Eos # (Auto) 0.2 (0-0.3) K/mm3 Baso # (Auto) 0.1 (0.0-0.1) K/mm3 Abs Immat Gran (auto) 0.00 (0.00-0.031) K/mm3 Absolute Neuts (auto) 1.2 L (1.3-6.7) K/mm3 Absolute Nucleated RBC 0.000 (0.0-0.012) K/mm3 Nucleated RBC % 0.0 (0.0-0.2) % Sodium 144 (137-145) mmol/L Potassium 4.2 (3.4-5.0) mmol/L Chloride 106 (98-107) mmol/L Carbon Dioxide 23 (22-30) mmol/L Anion Gap 15 H (4-12) mmol/L BUN 8 L (9-20) mg/dL Creatinine 0.62 L (0.7-1.3) mg/dL Estim Creat Clear Calc 130 ml/min Estimated GFR > 60 (59 - ) Glucose 97 (65-110) mg/dL Calcium 9.1 (8.4-10.2) mg/dL Phosphorus 3.6 (2.5-4.5) mg/dL Magnesium 1.8 (1.6-2.3) mg/dL Total Bilirubin 0.4 (0.2-1.3) mg/dL AST 158 H (17-59) U/L ALT 110 H (6-50) U/L Alkaline Phosphatase 79 (38-126) U/L Total Protein 8.1 (6.3-8.2) g/dL Albumin 4.9 (3.5-5.1) g/dL TSH 1.030 (0.465-4.680) uIU/mL Urine Color Yellow (Yellow) Urine Appearance Clear (Clear) Urine pH 6.0 (5.0-9.0) Ur Specific [place] 1.008 (1.001-1.035) Urine Protein Negative (Negative) mg/dL Urine Glucose (UA) Negative (Negative) mg/dL Urine Ketones Negative (Negative) mg/dL Ur Blood (Man) Negative (Negative) Urine Nitrate Negative (Negative) Urine Bilirubin Negative (Negative) Urine Urobilinogen 0.2 (<2.0) mg/dL Leukocyte Esterase Rfl Negative (Negative) CARLOS MANUEL/UL Salicylates < 1.0 L (2-20) mg/dL Urine Opiates Screen Negative (Negative) Urine Methadone Screen Negative (Negative) Acetaminophen < 10 L (10-30) ug/mL Ur Barbiturates Screen Negative (Negative) Ur Phencyclidine Scrn Negative (Negative) Ur Amphetamine Screen Negative (Negative) U Benzodiazepines Scrn Negative (Negative) Urine Cocaine Screen Negative (Negative) U Cannabinoids Screen Negative (Negative) Ethyl Alcohol 305 H* (<10) mg/dL SARS-CoV-2 RNA (RT-PCR) Negative (Negative) <Carly Maldonado MD - Last Filed: 11/28/24 05:05> ECG Data EKG #1: Attestation: I personally reviewed and interpreted this ECG as follows: <Melody Lazaro PA-C - Last Filed: 11/23/24 01:56> ECG completion date: 11/22/24 <Melody Lazaro PA-C - Last Filed: 11/23/24 01:56> ECG completion time: 20:43 <Melody Lazaro PA-C - Last Filed: 11/23/24 01:56> EKG Interpretation: tachycardia (103), sinus rhythm, non-specific ST changes and RBBB (incomplete) <Melody Lazaro PA-C - Last Filed: 11/23/24 01:56> Discharge Plan Discharge Clinical Impression: Depression with suicidal ideation, Transaminitis Benzodiazepine overdose Qualifiers: Encounter type: initial encounter Injury intent: intentional self-harm Q ualified Code(s): T42.4X2A - Poisoning by benzodiazepines, intentional self- harm, initial encounter Acute alcohol intoxication with alcoholism Qualifiers: Complication of substance-induced condition: uncomplicated Qualified Code(s): F 10.220 - Alcohol dependence with intoxication, uncomplicated <Melody Lazaro PA-C - Last Filed: 11/23/24 01:56> Patient Disposition: Still a Patient <OLIMPIA Ortiz Last Filed: 11/23/24 01:56> Condition: Stable <Melody Lazaro PA-C - Last Filed: 11/23/24 01:56>
[2024-11-22] MEDS: THIAMINE HCL 200 MG/2 ML VIAL 100 MG IV PUSH (22:39)
[2024-11-22] MEDS: SODIUM CHLORIDE 0.9% IV 1,000 ML 999 ML IV CONT (22:39)
[2024-11-22 23:27] LABS: Potassium 4.2 mmol/L (3.4-5.0)
--- NOTE | 2024-11-22 23:44 | PC.NURSE ---
has arrived and states that she also found open CBD/Kratom in the bed and thinks that he may have also taken that.
[2024-11-22] MEDS: SODIUM CHLORIDE 0.9% IV 1,000 ML 100 ML IV CONT (23:58)
[2024-11-23] VITALS (8 sets, daily range): BP systolic 117–133; BP diastolic 88–94; PULSE 83–104; RESP 1–22; TEMP 36.7–37.1; O2SAT 94–98; BMI 21.4
--- NOTE | 2024-11-23 00:55 | PM.IMHP ---
H&P: HPI History of Present Illness Date/Time: 11/23/24 02:30 Chief Complaint: Intentional overdose. Narrative: This is a 39-year-old male with history of alcoholism and anxiety who presented to the emergency department via EMS from home for evaluation for evaluation after an intentional overdose and suicidal ideation. He has been sober for a period of time but began drinking again several days ago, consuming about a half of a 5th of vodka a day. came home last evening and found him in an intoxicated state and she was very disappointed in him. He was despondent after their talk and felt he could no longer go on. He then took an estimated 10 to 15 tablets of his prescribed clonazepam 0.5 mg at about 19:00 last night in attempts to take his own life. He texted his shortly thereafter with the passwords and log in his to his bank accounts and she called 911. He had alcohol withdrawal years ago when he was drinking have urine for longer periods of times but he does not think he will have alcohol withdrawals as he has only been drinking for several days. He has no history of suicide attempts and he did not have a plan prior to this evening. At the time of my evaluation he is not actively suicidal or homicidal. He denies fever, recent cold and flu symptoms, hallucinations, tremors, sweats, chest pain, shortness of breath, nausea, vomiting, diarrhea, and dysuria. In the ED: Vital signs on arrival include a temperature of 98.2?, blood pressure 133/100, pulse 98, respiratory rate 19, SpO2 98% on room air. Labs were significant for WBC count of 3.9, hemoglobin 14.0, anion gap 15, creatinine 0.62, AST 158, ALT 110, ethyl alcohol 305. Urine drug screen was negative. EKG showed sinus tachycardia with incomplete right bundle branch block. He was given thiamine 100 mg IV and 2 L normal saline bolus. Poison Control recommends close monitoring given the fact that alprazolam does not peak for 30 to 40 hours. He is being admitted to the IMU in this setting for close monitoring and crisis consult. Review of Systems Review of Systems: 12 systems were reviewed and are negative except for as per HPI. [facility] Past Medical History Medical History (Updated 11/23/24 @ 03:02 by Philly Raymond PA-C) Depression BMI 20.0-20.9, adult Alcoholism Anxiety Surgical History Surgical History (Updated 11/23/24 @ 02:34 by Philly Raymond PA-C) History of repair of right rotator cuff Family History Family History Father Hypertension Mother Dupuytrens contracture Breast cancer Sibling Hypertension Grandparent Depression Grandparent Anxiety Social History Social History (Updated 11/23/24 @ 03:03 by Philly Raymond PA-C) Social History: Surrogate medical decision maker: Eulalio Mohan, spouse. Code status: Full code. Years smoked: 15 Smoking status: Former smoker Tobacco type: e-cigarettes/vaping Second hand tobacco smoke exposure: Yes Alcohol intake: former Alcohol use details: Longstanding history of alcohol abuse. Began drinking again 11/20/2024, half of a 5th a day. Substance use: never Substance use type: marijuana Do You Feel Safe in your Home?: Yes Lack of Transportation: No Lack of Food: Never True Current Housing: I Have Housing Concerned About Future Housing: No Difficulty Paying Gas/Electric Bills: No Difficulty Paying for Meds: No Currently Unemployed: No Education: Associate Degree Difficulty w/ Childcare or Family Care: No Spiritual care concerns: No Meds Home Medications and Allergies Home Medications ?Medication ?Instructions ?Recorded ?Confirmed ?Type clonazepam 0.5 mg tablet 0.5 mg PO Q12H PRN 10/24/21 10/28/23 History vilazodone 40 mg tablet (Viibryd) 40 mg PO DAILY 12/11/22 10/28/23 History naltrexone 50 mg tablet 50 mg PO DAILY 10/28/23 10/28/23 History Allergies Allergy/AdvReac Type Severity Reaction Status Date / Time No Known Allergies Allergy Verified 11/02/24 07:33 Vital Signs Vital Signs - 24 hr 11/22/24 20:37 11/22/24 20:46 11/22/24 20:47 Temperature 98.2 F Pulse Rate 98 106 H Respiratory Rate 19 Blood Pressure 133/100 H Pulse Oximetry 98 97 Oxygen Delivery Room Air Room Air 11/22/24 20:49 11/22/24 21:45 11/22/24 22:30 Temperature Pulse Rate 106 H 99 103 H Respiratory Rate 17 16 19 Blood Pressure 134/98 H 122/91 H 113/85 Pulse Oximetry 97 95 96 Oxygen Delivery 11/22/24 23:45 Temperature Pulse Rate 93 Respiratory Rate 19 Blood Pressure 121/92 H Pulse Oximetry 98 Oxygen Delivery Exam Narrative: General: Nontoxic-appearing male the the semi-Bear position in bed in no distress. Weight: 68 kg. BMI: 21.5. HEENT: Normocephalic, atraumatic. PERRL, EOMI. Sclera anicteric. Conjunctiva mildly injected. Oral mucosa is moist. Neck: Supple. Respiratory: Lungs are clear to auscultation bilaterally. Cardiovascular: Regular rate and rhythm with S1-S2. Gastrointestinal: Abdomen is soft, nontender, and nondistended with positive bowel sounds. Skin: Warm and dry. Extremities: No cyanosis, clubbing, or edema. Radial and pedal pulses intact. Neurological: Alert and oriented. Cranial nerves 2-12 are grossly intact. No gross focal deficits to casual conversation. Psychiatric: Cooperative with appropriate mood and flat affect. H&P: Results Labs Labs: Short CBC 11/22/24 Range/Units 20:51 WBC 3.9 L (4.5-10.0) K/mm3 Hgb 14.0 (14.0-18.0) g/dL Hct 41.2 L (42.0-52.0) % Plt Count 196 (150-375) k/mm3 BMP 11/22/24 20:51 Sodium 144 Potassium 4.2 Chloride 106 Carbon Dioxide 23 BUN 8 L Creatinine 0.62 L Glucose 97 Calcium 9.1 Liver Function 11/22/24 Range/Units 20:51 Total Bilirubin 0.4 (0.2-1.3) mg/dL AST 158 H (17-59) U/L ALT 110 H (6-50) U/L Alkaline Phosphatase 79 (38-126) U/L Albumin 4.9 (3.5-5.1) g/dL Urine 11/22/24 Range/Units 20:51 Urine Color Yellow (Yellow) Urine Appearance Clear (Clear) Urine pH 6.0 (5.0-9.0) Ur Specific [place] 1.008 (1.001-1.035) Urine Protein Negative (Negative) mg/dL Urine Glucose (UA) Negative (Negative) mg/dL Assessment and Plan Assessment and plan (1) Suicide attempt by benzodiazepine overdose: Code(s): T42.4X2A - Poisoning by benzodiazepines, intentional self-harm, initial encounter Status: Acute (2) Alcohol intoxication: Code(s): F10.929 - Alcohol use, unspecified with intoxication, unspecified Status: Acute (3) Alcoholism: Code(s): F10.20 - Alcohol dependence, uncomplicated Status: Acute Plan The patient presented to the emergency department for evaluation after he ingested 10 to 15 tablets of clonazepam 0.5 mg in an attempt to take his life as detailed in HPI. Labs, imaging, EKG, and all reports were personally reviewed. Poison Control has been contacted and we will follow their recommendations. He is being monitored closely on telemetry and has a sitter in the room on suicide precautions. He is technically intoxicated and once he is medically stable we will need to consult crisis. He is no longer feeling suicidal. Vital signs are stable. His home medications will be reviewed and resumed as appropriate. Findings and treatment plan were discussed with the patient. Questions were solicited and answered to satisfaction. The patient's medical management will be taken over by the hospitalist team in a.m. Quality VTE Prophylaxis VTE prophylaxis: mechanical ordered If No VTE Prophylaxis Answer both mechanical and pharmacologic: Reason no pharmacologic proph: low risk/not indicated The patient has been admitted under observation status. Hospitalist MIPS Advance Care Plan I have confirmed that the patient's Advanced Care Plan is present, code status is documented, or surrogate decision maker is listed in patient medical record.: Yes Medication Reconciliation The patient is not eligible for med reconciliation; the patient is in a emergent medical situation where delaying treatment would jeopardize the patients health.: Yes
--- NOTE | 2024-11-23 02:30 | ADMGEN ---
This patient, Steve Figueroa, was admitted to Intensive Care Unit-3. Patient/family oriented to hospital policies and general routines including ID bracelet, bed and alarms, visiting hours, pain management, procedures, bathroom and other care routines, personal items, smoking policy, room service/diet, and visiting hours. Information on how to activate the Rapid Response Team has been discussed. Patient/Family are encouraged to report perceived risks to care and to ask questions if they do not understand what they are told or what they should do.
--- NOTE | 2024-11-23 06:00 | PC.NURSE ---
Patient clonazepam prescription handed off to SWAMPER to place with his belongings.
--- NOTE | 2024-11-23 06:36 | PC.NURSE ---
[place] Poison control called for update. They are taking him off of their list.
[2024-11-23 07:34] LABS: Hematocrit 37.2 % (42.0-52.0); Hemoglobin 12.5 g/dL (14.0-18.0); Mean Corpuscular HGB Conc 33.6 g/dl (32-36); Mean Corpuscular Hemoglobin 33.7 pg (26-34); Mean Corpuscular Volume 100.3 fl (80-100); Mean Platelet Volume 10.3 fl (7.4-10.4); Platelet Count Result 171 k/mm3 (150-375); Red Blood Count 3.71 M/mm3 (4.6-6.20); Red Cell Distribution Width 13.6 % (11.5-14.5); White Blood Count 3.8 K/mm3 (4.5-10.0)
[2024-11-23 07:44] LABS: Ethanol 63 mg/dL (<10)
[2024-11-23 08:06] LABS: Alanine Aminotransferase 91 U/L (6-50); Albumin Level 4.2 g/dL (3.5-5.1); Alkaline Phosphatase 79 U/L (38-126); Anion Gap 11 mmol/L (4-12); Aspartate Amino Transferase 116 U/L (17-59); Bilirubin,Total 0.6 mg/dL (0.2-1.3); Blood Urea Nitrogen 6 mg/dL (9-20); Calcium 8.4 mg/dL (8.4-10.2); Carbon Dioxide 22 mmol/L (22-30); Chloride 105 mmol/L (98-107); Estimated CRCL calculation 131 ml/min; Estimated Glomerular Filt Rate > 60; Glucose 74 mg/dL (65-110); Magnesium 1.5 mg/dL (1.6-2.3); Potassium 3.8 mmol/L (3.4-5.0); Sodium 138 mmol/L (137-145); Total Protein 6.9 g/dL (6.3-8.2)
[2024-11-23] MEDS: THIAMINE HCL 200 MG/2 ML VIAL 100 MG IV PUSH (09:29)
[2024-11-23] MEDS: FOLIC ACID 1 MG TABLET PO (09:29)
--- NOTE | 2024-11-23 09:45 | P.PNIM_ITS ---
Progress Note: A&P Assessment and Plan (1) Suicide attempt by benzodiazepine overdose: Code(s): T42.4X2A - Poisoning by benzodiazepines, intentional self-harm, initial encounter Status: Acute Assessment and Plan: Patient awake and following commands. Continue supportive care and monitoring since [place] is a long-acting benzodiazepine Poison Control notified One-to-one sitter Crisis/psych evaluation once medical issues are resolved (2) Alcohol intoxication: Code(s): F10.929 - Alcohol use, unspecified with intoxication, unspecified Status: Acute Assessment and Plan: IV fluids thiamine and folic acid (3) Alcoholism: Code(s): F10.20 - Alcohol dependence, uncomplicated Status: Acute (4) Transaminitis: Code(s): R74.01 - Elevation of levels of liver transaminase levels Status: Acute Assessment and Plan: Elevated AST and ALT likely secondary to alcoholic hepatitis Check ultrasound and while hepatitis panel Plan DVT prophylaxis -SCD Nutrition -diet ordered Code Status - Full Code Transferred to telemetry Subjective Date/time seen: 11/23/24 He states he feels much better this morning and denies any new complaints. He is afebrile and is stable vital signs. He is on room air. All other systems were reviewed and were negative Review of Systems Review of Systems: 12 systems were reviewed and are negativ e except for as per HPI. Exam Narrative: General: Pt is alert awake and in NAD Lungs/Chest: Trachea central Clear BS B/L, No crackles or wheezing. Cardiac: RRR. Normal S1 S2. No murmurs Circulation: Pedal pulses are intact and symmetrical. Abdomen: Normal bowel sounds.. Soft. NT. ND. Extremities: No clubbing, cyanosis or edema. Warm : Chavez in place Neurologic: Follows commands. Moves all 4 extremities PERRL Skin: No Rash Psychiatric: Cooperative with appropriate mood and flat affect. Objective Data Vital Signs Vital Signs: Vital Signs - 24 hr 11/22/24 20:37 11/22/24 20:46 11/22/24 20:47 Temperature 36.8 C Pulse Rate 98 106 H Respiratory Rate 19 Blood Pressure 133/100 H Pulse Oximetry 98 97 Oxygen Delivery Room Air Room Air 11/22/24 20:49 11/22/24 21:45 11/22/24 22:30 Temperature Pulse Rate 106 H 99 103 H Respiratory Rate 17 16 19 Blood Pressure 134/98 H 122/91 H 113/85 Pulse Oximetry 97 95 96 Oxygen Delivery 11/22/24 23:45 11/23/24 01:59 11/23/24 04:00 Temperature Pulse Rate 93 87 Respiratory Rate 19 1 L Blood Pressure 121/92 H 117/93 H 118/94 H Pulse Oximetry 98 95 Oxygen Delivery 11/23/24 04:00 11/23/24 04:00 11/23/24 04:00 Temperature 36.7 C Pulse Rate 89 87 90 Respiratory Rate 16 16 Blood Pressure 118/94 H Pulse Oximetry 94 94 Oxygen Delivery Room Air 11/23/24 08:00 11/23/24 08:14 Temperature 37.1 C Pulse Rate 104 H Respiratory Rate 22 H Blood Pressure 126/90 Pulse Oximetry 96 Oxygen Delivery Intake/Output Intake/Output: Intake & Output 11/20/24 11/21/24 11/22/24 11/23/24 23:59 23:59 23:59 23:59 Intake Total 1000 476 Output Total 1000 Balance 1000 -524 Meds/Results Medications: Active Medications Generic Name Dose Route Start Last Admin Trade Name Freq PRN Reason Stop Dose Admin Dextrose 12.5 gm 11/22/24 23:38 Dextrose 50% 25 Gm/50 Ml Syringe IV PUSH PRN PRN Hypoglycemia Protocol Folic Acid 1 mg 11/23/24 09:00 11/23/24 09:29 Folic Acid 1 Mg Tablet PO 1 mg DAILY YELENA Administration Glucagon 1 mg 11/22/24 23:38 Glucagon For Inj 1 Mg Vial IM PRN PRN Hypoglycemia Protocol Glucose 15 gm 11/22/24 23:38 Glucose Oral Gel 15 Gm Of Glucse In 37.5 Gm Tube PO PRN PRN Hypoglycemia Protocol Dextrose 1,000 mls @ 100 mls/hr 11/22/24 23:38 Dextrose 5% 1,000 Ml IVPB PRN PRN Hypoglycemia Protocol Ondansetron HCl 4 mg 11/22/24 23:38 Ondansetron Inj 4 Mg/2 Ml Vial IV PUSH Q4H PRN Nausea Thiamine HCl 100 mg 11/23/24 09:00 11/23/24 09:29 Thiamine Hcl 200 Mg/2 Ml Vial IV PUSH 100 mg DAILY YELENA Administration Labs Labs: Laboratory Results - last 24 hr 11/22/24 11/22/24 11/23/24 20:51 20:54 07:18 WBC 3.9 L 3.8 L RBC 4.16 L 3.71 L Hgb 14.0 12.5 L Hct 41.2 L 37.2 L MCV 99.0 100.3 H MCH 33.7 33.7 MCHC 34.0 33.6 RDW 13.6 13.6 Plt Count 196 171 MPV 10.3 10.3 Immature Gran % (Auto) 0.0 Neut % (Auto) 31.5 L Lymph % (Auto) 53.8 H [place] % (Auto) 8.2 Eos % (Auto) 4.4 Baso % (Auto) 2.1 H Lymph # (Auto) 2.10 [place] # (Auto) 0.3 Eos # (Auto) 0.2 Baso # (Auto) 0.1 Abs Immat Gran (auto) 0.00 Absolute Neuts (auto) 1.2 L Absolute Nucleated RBC 0.000 Nucleated RBC % 0.0 Sodium 144 Potassium 4.2 Chloride 106 Carbon Dioxide 23 Anion Gap 15 H BUN 8 L Creatinine 0.62 L Estim Creat Clear Calc 130 Estimated GFR > 60 Glucose 97 Calcium 9.1 Phosphorus 3.6 Magnesium 1.8 Total Bilirubin 0.4 AST 158 H ALT 110 H Alkaline Phosphatase 79 Total Protein 8.1 Albumin 4.9 TSH 1.030 Urine Color Yellow Urine Appearance Clear Urine pH 6.0 Ur Specific [place] 1.008 Urine Protein Negative Urine Glucose (UA) Negative Urine Ketones Negative Ur Blood (Man) Negative Urine Nitrate Negative Urine Bilirubin Negative Urine Urobilinogen 0.2 Leukocyte Esterase Rfl Negative Salicylates < 1.0 L Urine Opiates Screen Negative Urine Methadone Screen Negative Acetaminophen < 10 L Ur Barbiturates Screen Negative Ur Phencyclidine Scrn Negative Ur Amphetamine Screen Negative U Benzodiazepines Scrn Negative Urine Cocaine Screen Negative U Cannabinoids Screen Negative Ethyl Alcohol 305 H* 63 SARS-CoV-2 RNA (RT-PCR) Negative 11/23/24 07:19 WBC RBC Hgb Hct MCV MCH MCHC RDW Plt Count MPV Immature Gran % (Auto) Neut % (Auto) Lymph % (Auto) [place] % (Auto) Eos % (Auto) Baso % (Auto) Lymph # (Auto) [place] # (Auto) Eos # (Auto) Baso # (Auto) Abs Immat Gran (auto) Absolute Neuts (auto) Absolute Nucleated RBC Nucleated RBC % Sodium 138 Potassium 3.8 Chloride 105 Carbon Dioxide 22 Anion Gap 11 BUN 6 L Creatinine 0.62 L Estim Creat Clear Calc 131 Estimated GFR > 60 Glucose 74 Calcium 8.4 Phosphorus Magnesium 1.5 L Total Bilirubin 0.6 AST 116 H ALT 91 H Alkaline Phosphatase 79 Total Protein 6.9 Albumin 4.2 TSH Urine Color Urine Appearance Urine pH Ur Specific [place] Urine Protein Urine Glucose (UA) Urine Ketones Ur Blood (Man) Urine Nitrate Urine Bilirubin Urine Urobilinogen Leukocyte Esterase Rfl Salicylates Urine Opiates Screen Urine Methadone Screen Acetaminophen Ur Barbiturates Screen Ur Phencyclidine Scrn Ur Amphetamine Screen U Benzodiazepines Scrn Urine Cocaine Screen U Cannabinoids Screen Ethyl Alcohol SARS-CoV-2 RNA (RT-PCR) Quality VTE Prophylaxis VTE prophylaxis: mechanical ordered
--- NOTE | 2024-11-23 10:04 | PC.NURSE ---
[id number] Patient requesting RN call his work to notify them of his absence. Patient given phone briefly to retrieve phone number. This RN notified [employer] that patient is at the hospital and will not be at work. Patient aware. [id number] Patient's called to check on him. All questions answered. States she will come visit in the afternoon.
[2024-11-23 11:32] LABS: Hepatitis B Surface Antigen Negative (Negative)
[2024-11-23 11:38] LABS: HAV RESULT Negative (Negative); Hepatitis B Core IgM Result Negative (Negative)
[2024-11-23] MEDS: NICOTINE (*PBKC) 14 MG PATCH 1 PATCH TRANSDERM (11:39)
[2024-11-23 11:49] LABS: Hepatitis C Virus Antibody Negative (Negative)
--- NOTE | 2024-11-23 15:50 | P.PNIM_ITS ---
Progress Note: A&P Assessment and Plan (1) Suicide attempt by benzodiazepine overdose: Code(s): T42.4X2A - Poisoning by benzodiazepines, intentional self-harm, initial encounter Status: Acute (2) Alcohol intoxication: Code(s): F10.929 - Alcohol use, unspecified with intoxication, unspecified Status: Acute (3) Alcoholism: Code(s): F10.20 - Alcohol dependence, uncomplicated Status: Acute Plan The patient presented to the emergency department for evaluation after he ingested 10 to 15 tablets of clonazepam 0.5 mg in an attempt to take his life as detailed in HPI. Labs, imaging, EKG, and all reports were personally reviewed. Poison Control has been contacted and we will follow their recommendations. He is being monitored closely on telemetry and has a sitter in the room on suicide precautions. He is technically intoxicated and once he is medically stable we will need to consult crisis. He is no longer feeling suicidal. Vital signs are stable. His home medications will be reviewed and resumed as appropriate. Findings and treatment plan were discussed with the patient. Questions were solicited and answered to satisfaction. The patient's medical management will be taken over by the hospitalist team in a.m. 39 y/o male with history of alcohol abuse presented with a suicidal attempt, upon arrival alcohol level was 305, patient is being monitor and has a sitter, will monitor patient for 48 hours for any DT and withdrawal, once clinically stable, will have crisis team evaluate the patient, patient will benefit going to inpatient psychiatric hospital. Subjective Date/time seen: 11/23/24 15:50 Interval history: 39 y/o male with history of alcohol abuse presented with a suicidal attempt, upon arrival alcohol level was 305, patient is being monitor and has a sitter, will monitor patient for 48 hours for any DT and withdrawal, once clinically stable, will have crisis team evaluate the patient, patient will benefit going to inpatient psychiatric hospital. Review of Systems Review of Systems: 12 systems were reviewed and are negativ e except for as per HPI. Exam Narrative: Patient is comfortable, NAD HEENT: eyes are clear and none icteric LUNGS:CTA HEART: RR S1S2 ABD: BS+, Soft and nontender Lower extremities: no edema SKIN: nonjaundiced Neuro: grossly intact. Objective Data Vital Signs Vital Signs: Vital Signs - 24 hr 11/22/24 20:37 11/22/24 20:46 11/22/24 20:47 Temperature 36.8 C Pulse Rate 98 106 H Respiratory Rate 19 Blood Pressure 133/100 H Pulse Oximetry 98 97 Oxygen Delivery Room Air Room Air 11/22/24 20:49 11/22/24 21:45 11/22/24 22:30 Temperature Pulse Rate 106 H 99 103 H Respiratory Rate 17 16 19 Blood Pressure 134/98 H 122/91 H 113/85 Pulse Oximetry 97 95 96 Oxygen Delivery 11/22/24 23:45 11/23/24 01:59 11/23/24 04:00 Temperature Pulse Rate 93 87 Respiratory Rate 19 1 L Blood Pressure 121/92 H 117/93 H 118/94 H Pulse Oximetry 98 95 Oxygen Delivery 11/23/24 04:00 11/23/24 04:00 11/23/24 04:00 Temperature 36.7 C Pulse Rate 89 87 90 Respiratory Rate 16 16 Blood Pressure 118/94 H Pulse Oximetry 94 94 Oxygen Delivery Room Air 11/23/24 08:00 11/23/24 08:00 11/23/24 08:00 Temperature 37.1 C Pulse Rate 104 H 94 Respiratory Rate 22 H Blood Pressure Pulse Oximetry 96 96 Oxygen Delivery Room Air 11/23/24 08:14 11/23/24 11:42 11/23/24 12:00 Temperature 36.9 C Pulse Rate 102 H 98 Respiratory Rate 16 Blood Pressure 126/90 133/88 Pulse Oximetry 98 Oxygen Delivery Intake/Output Intake/Output: Intake & Output 11/20/24 11/21/24 11/22/24 11/23/24 23:59 23:59 23:59 23:59 Intake Total 1000 1279.3 Output Total 1000 Balance 1000 279.3 Meds/Results Medications: Active Medications Generic Name Dose Route Start Last Admin Trade Name Freq PRN Reason Stop Dose Admin Dextrose 12.5 gm 11/22/24 23:38 Dextrose 50% 25 Gm/50 Ml Syringe IV PUSH PRN PRN Hypoglycemia Protocol Folic Acid 1 mg 11/23/24 09:00 11/23/24 09:29 Folic Acid 1 Mg Tablet PO 1 mg DAILY YELENA Administration Glucagon 1 mg 11/22/24 23:38 Glucagon For Inj 1 Mg Vial IM PRN PRN Hypoglycemia Protocol Glucose 15 gm 11/22/24 23:38 Glucose Oral Gel 15 Gm Of Glucse In 37.5 Gm Tube PO PRN PRN Hypoglycemia Protocol Dextrose 1,000 mls @ 100 mls/hr 11/22/24 23:38 Dextrose 5% 1,000 Ml IVPB PRN PRN Hypoglycemia Protocol Nicotine 1 patch 11/23/24 12:00 11/23/24 11:39 Nicotine (*Pbkc) 14 Mg Patch TRANSDERM 1 patch 1200 YELENA Administration Ondansetron HCl 4 mg 11/22/24 23:38 Ondansetron Inj 4 Mg/2 Ml Vial IV PUSH Q4H PRN Nausea Thiamine HCl 100 mg 11/23/24 09:00 11/23/24 09:29 Thiamine Hcl 200 Mg/2 Ml Vial IV PUSH 100 mg DAILY YELENA Administration Radiology Results: ITS Impressions Abdomen Ultrasound 11/23/24 14:26 IMPRESSION: 1: Fatty infiltration of the liver. Labs Labs: Laboratory Results - last 24 hr 11/22/24 11/22/24 11/23/24 20:51 20:54 07:18 WBC 3.9 L 3.8 L RBC 4.16 L 3.71 L Hgb 14.0 12.5 L Hct 41.2 L 37.2 L MCV 99.0 100.3 H MCH 33.7 33.7 MCHC 34.0 33.6 RDW 13.6 13.6 Plt Count 196 171 MPV 10.3 10.3 Immature Gran % (Auto) 0.0 Neut % (Auto) 31.5 L Lymph % (Auto) 53.8 H [place] % (Auto) 8.2 Eos % (Auto) 4.4 Baso % (Auto) 2.1 H Lymph # (Auto) 2.10 [place] # (Auto) 0.3 Eos # (Auto) 0.2 Baso # (Auto) 0.1 Abs Immat Gran (auto) 0.00 Absolute Neuts (auto) 1.2 L Absolute Nucleated RBC 0.000 Nucleated RBC % 0.0 Sodium 144 Potassium 4.2 Chloride 106 Carbon Dioxide 23 Anion Gap 15 H BUN 8 L Creatinine 0.62 L Estim Creat Clear Calc 130 Estimated GFR > 60 Glucose 97 Calcium 9.1 Phosphorus 3.6 Magnesium 1.8 Total Bilirubin 0.4 AST 158 H ALT 110 H Alkaline Phosphatase 79 Total Protein 8.1 Albumin 4.9 TSH 1.030 Urine Color Yellow Urine Appearance Clear Urine pH 6.0 Ur Specific [place] 1.008 Urine Protein Negative Urine Glucose (UA) Negative Urine Ketones Negative Ur Blood (Man) Negative Urine Nitrate Negative Urine Bilirubin Negative Urine Urobilinogen 0.2 Leukocyte Esterase Rfl Negative Salicylates < 1.0 L Urine Opiates Screen Negative Urine Methadone Screen Negative Acetaminophen < 10 L Ur Barbiturates Screen Negative Ur Phencyclidine Scrn Negative Ur Amphetamine Screen Negative U Benzodiazepines Scrn Negative Urine Cocaine Screen Negative U Cannabinoids Screen Negative Ethyl Alcohol 305 H* 63 Hepatitis A IgM Ab Hep Bs Antigen Hep B Core IgM Ab Hepatitis C Ab Screen SARS-CoV-2 RNA (RT-PCR) Negative 11/23/24 07:19 WBC RBC Hgb Hct MCV MCH MCHC RDW Plt Count MPV Immature Gran % (Auto) Neut % (Auto) Lymph % (Auto) [place] % (Auto) Eos % (Auto) Baso % (Auto) Lymph # (Auto) [place] # (Auto) Eos # (Auto) Baso # (Auto) Abs Immat Gran (auto) Absolute Neuts (auto) Absolute Nucleated RBC Nucleated RBC % Sodium 138 Potassium 3.8 Chloride 105 Carbon Dioxide 22 Anion Gap 11 BUN 6 L Creatinine 0.62 L Estim Creat Clear Calc 131 Estimated GFR > 60 Glucose 74 Calcium 8.4 Phosphorus Magnesium 1.5 L Total Bilirubin 0.6 AST 116 H ALT 91 H Alkaline Phosphatase 79 Total Protein 6.9 Albumin 4.2 TSH Urine Color Urine Appearance Urine pH Ur Specific [place] Urine Protein Urine Glucose (UA) Urine Ketones Ur Blood (Man) Urine Nitrate Urine Bilirubin Urine Urobilinogen Leukocyte Esterase Rfl Salicylates Urine Opiates Screen Urine Methadone Screen Acetaminophen Ur Barbiturates Screen Ur Phencyclidine Scrn Ur Amphetamine Screen U Benzodiazepines Scrn Urine Cocaine Screen U Cannabinoids Screen Ethyl Alcohol Hepatitis A IgM Ab Negative Hep Bs Antigen Negative Hep B Core IgM Ab Negative Hepatitis C Ab Screen Negative SARS-CoV-2 RNA (RT-PCR) Quality VTE Prophylaxis VTE prophylaxis: mechanical ordered
[2024-11-23] MEDS: ONDANSETRON INJ 4 MG/2 ML VIAL IV PUSH (18:35)
[2024-11-24] VITALS: BP 121/84; PULSE 83; PULSE 85; RESP 21; TEMP 36.8; O2SAT 98
[2024-11-24 04:00] VITALS: PULSE 88
[2024-11-24 04:15] LABS: Hematocrit 40.4 % (42.0-52.0); Hemoglobin 13.8 g/dL (14.0-18.0); Mean Corpuscular HGB Conc 34.2 g/dl (32-36); Mean Corpuscular Hemoglobin 33.7 pg (26-34); Mean Corpuscular Volume 98.8 fl (80-100); Mean Platelet Volume 10.2 fl (7.4-10.4); Platelet Count Result 172 k/mm3 (150-375); Red Blood Count 4.09 M/mm3 (4.6-6.20); Red Cell Distribution Width 12.9 % (11.5-14.5); White Blood Count 4.8 K/mm3 (4.5-10.0)
[2024-11-24 04:32] LABS: Alanine Aminotransferase 85 U/L (6-50); Albumin Level 4.4 g/dL (3.5-5.1); Alkaline Phosphatase 81 U/L (38-126); Anion Gap 8 mmol/L (4-12); Aspartate Amino Transferase 92 U/L (17-59); Bilirubin,Total 1.2 mg/dL (0.2-1.3); Blood Urea Nitrogen 10 mg/dL (9-20); Calcium 9.4 mg/dL (8.4-10.2); Carbon Dioxide 26 mmol/L (22-30); Chloride 101 mmol/L (98-107); Estimated CRCL calculation 154 ml/min; Estimated Glomerular Filt Rate > 60; Glucose 87 mg/dL (65-110); Magnesium 1.6 mg/dL (1.6-2.3); Phosphorus 3.3 mg/dL (2.5-4.5); Potassium 3.8 mmol/L (3.4-5.0); Sodium 135 mmol/L (137-145); Total Protein 7.3 g/dL (6.3-8.2)
[2024-11-24 07:41] VITALS: BP 129/99; PULSE 82; RESP 16; TEMP 36.7; O2SAT 99
[2024-11-24 08:00] VITALS: PULSE 86; RESP 14; O2SAT 100
[2024-11-24] MEDS: THIAMINE HCL 200 MG/2 ML VIAL 100 MG IV PUSH (08:44)
[2024-11-24] MEDS: FOLIC ACID 1 MG TABLET PO (08:44)
--- NOTE | 2024-11-24 09:33 | P.PNIM_ITS ---
Progress Note: A&P Assessment and Plan (1) Suicide attempt by benzodiazepine overdose: Code(s): T42.4X2A - Poisoning by benzodiazepines, intentional self-harm, initial encounter Status: Acute (2) Alcohol intoxication: Code(s): F10.929 - Alcohol use, unspecified with intoxication, unspecified Status: Acute (3) Alcoholism: Code(s): F10.20 - Alcohol dependence, uncomplicated Status: Acute Plan The patient presented to the emergency department for evaluation after he ingested 10 to 15 tablets of clonazepam 0.5 mg in an attempt to take his life as detailed in HPI. Labs, imaging, EKG, and all reports were personally reviewed. Poison Control has been contacted and we will follow their recommendations. He is being monitored closely on telemetry and has a sitter in the room on suicide precautions. He is technically intoxicated and once he is medically stable we will need to consult crisis. He is no longer feeling suicidal. Vital signs are stable. His home medications will be reviewed and resumed as appropriate. Findings and treatment plan were discussed with the patient. Questions were solicited and answered to satisfaction. The patient's medical management will be taken over by the hospitalist team in a.m. 39 y/o male with history of alcohol abuse presented with a suicidal attempt, upon arrival alcohol level was 305, patient is being monitor and has a sitter, will monitor patient for 48 hours for any DT and withdrawal, once clinically stable, will have crisis team evaluate the patient, patient will benefit going to inpatient psychiatric hospital. patient is clinically stable, no signs or symptoms of DT or withdrawal, patient medically clear for evaluation by the crisis team, patient will benefit going to inpatient psychiatrist care. Subjective Date/time seen: 11/24/24 09:33 Interval history: 39 y/o male with history of alcohol abuse presented with a suicidal attempt, upon arrival alcohol level was 305, patient is being monitor and has a sitter, will monitor patient for 48 hours for any DT and withdrawal, once clinically stable, will have crisis team evaluate the patient, patient will benefit going t o inpatient psychiatric hospital. patient is clinically stable, no signs or symptoms of DT or withdrawal, patient medically clear for evaluation by the crisis team, patient will benefit going to inpatient psychiatrist care. Review of Systems Review of Systems: 12 systems were reviewed and are negativ e except for as per HPI. Exam Narrative: Patient is comfortable, NAD HEENT: eyes are clear and none icteric LUNGS:CTA HEART: RR S1S2 ABD: BS+, Soft and nontender Lower extremities: no edema SKIN: nonjaundiced Neuro: grossly intact. Objective Data Vital Signs Vital Signs: Vital Signs - 24 hr 11/23/24 11:42 11/23/24 12:00 11/23/24 16:00 Temperature 36.9 C Pulse Rate 102 H 98 103 H Respiratory Rate 16 Blood Pressure 133/88 Pulse Oximetry 98 Oxygen Delivery 11/23/24 20:00 11/23/24 20:00 11/24/24 00:00 Temperature 36.8 C Pulse Rate 83 83 Respiratory Rate 21 H Blood Pressure 121/84 Pulse Oximetry 98 98 Oxygen Delivery Room Air 11/24/24 00:00 11/24/24 04:00 11/24/24 07:41 Temperature 36.7 C Pulse Rate 85 88 82 Respiratory Rate 16 Blood Pressure 129/99 H Pulse Oximetry 99 Oxygen Delivery Intake/Output Intake/Output: Intake & Output 11/21/24 11/22/24 11/23/24 11/24/24 23:59 23:59 23:59 23:59 Intake Total 1000 1529.3 340 Output Total 1000 Balance 1000 529.3 340 Meds/Results Medications: Active Medications Generic Name Dose Route Start Last Admin Trade Name Freq PRN Reason Stop Dose Admin Dextrose 12.5 gm 11/22/24 23:38 Dextrose 50% 25 Gm/50 Ml Syringe IV PUSH PRN PRN Hypoglycemia Protocol Folic Acid 1 mg 11/23/24 09:00 11/24/24 08:44 Folic Acid 1 Mg Tablet PO 1 mg DAILY YELENA Administration Glucagon 1 mg 11/22/24 23:38 Glucagon For Inj 1 Mg Vial IM PRN PRN Hypoglycemia Protocol Glucose 15 gm 11/22/24 23:38 Glucose Oral Gel 15 Gm Of Glucse In 37.5 Gm Tube PO PRN PRN Hypoglycemia Protocol Dextrose 1,000 mls @ 100 mls/hr 11/22/24 23:38 Dextrose 5% 1,000 Ml IVPB PRN PRN Hypoglycemia Protocol Nicotine 1 patch 11/23/24 12:00 11/23/24 11:39 Nicotine (*Pbkc) 14 Mg Patch TRANSDERM 1 patch 1200 YELENA Administration Ondansetron HCl 4 mg 11/22/24 23:38 11/23/24 18:35 Ondansetron Inj 4 Mg/2 Ml Vial IV PUSH 4 mg Q4H PRN Administration Nausea Thiamine HCl 100 mg 11/23/24 09:00 11/24/24 08:44 Thiamine Hcl 200 Mg/2 Ml Vial IV PUSH 100 mg DAILY YELENA Administration Radiology Results: ITS Impressions Abdomen Ultrasound 11/23/24 14:26 IMPRESSION: 1: Fatty infiltration of the liver. Labs Labs: Laboratory Results - last 24 hr 11/23/24 11/24/24 07:19 03:56 WBC 4.8 RBC 4.09 L Hgb 13.8 L Hct 40.4 L MCV 98.8 MCH 33.7 MCHC 34.2 RDW 12.9 Plt Count 172 MPV 10.2 Sodium 135 L Potassium 3.8 Chloride 101 Carbon Dioxide 26 Anion Gap 8 BUN 10 Creatinine 0.52 L Estim Creat Clear Calc 154 Estimated GFR > 60 Glucose 87 Calcium 9.4 Phosphorus 3.3 Magnesium 1.6 Total Bilirubin 1.2 AST 92 H ALT 85 H Alkaline Phosphatase 81 Total Protein 7.3 Albumin 4.4 Hepatitis A IgM Ab Negative Hep Bs Antigen Negative Hep B Core IgM Ab Negative Hepatitis C Ab Screen Negative Quality VTE Prophylaxis VTE prophylaxis: mechanical ordered
--- NOTE | 2024-11-24 11:25 | PM.DS ---
DS: Admitting Diagnosis Discharge Date 11/24/24 Admitting Diagnosis Intentional overdose. DS: Discharge Diagnosis Discharge Diagnosis (1) Suicide attempt by benzodiazepine overdose: Code(s): T42.4X2A - Poisoning by benzodiazepines, intentional self-harm, initial encounter Status: Acute (2) Alcohol intoxication: Code(s): F10.929 - Alcohol use, unspecified with intoxication, unspecified Status: Acute (3) Alcoholism: Code(s): F10.20 - Alcohol dependence, uncomplicated Status: Acute Plan The patient presented to the emergency department for evaluation after he ingested 10 to 15 tablets of clonazepam 0.5 mg in an attempt to take his life as detailed in HPI. Labs, imaging, EKG, and all reports were personally reviewed. Poison Control has been contacted and we will follow their recommendations. He is being monitored closely on telemetry and has a sitter in the room on suicide precautions. He is technically intoxicated and once he is medically stable we will need to consult crisis. He is no longer feeling suicidal. Vital signs are stable. His home medications will be reviewed and resumed as appropriate. Findings and treatment plan were discussed with the patient. Questions were solicited and answered to satisfaction. The patient's medical management will be taken over by the hospitalist team in a.m. 39 y/o male with history of alcohol abuse presented with a suicidal attempt, upon arrival alcohol level was 305, patient is being monitor and has a sitter, will monitor patient for 48 hours for any DT and withdrawal, once clinically stable, will have crisis team evaluate the patient, patient will benefit going to inpatient psychiatric hospital. patient is clinically stable, no signs or symptoms of DT or withdrawal, patient medically clear for evaluation by the crisis team, patient will benefit going to inpatient psychiatrist care. DS: Summary Hospital Course Hospital Course: 39 y/o male with history of alcohol abuse presented with a suicidal attempt, upon arrival alcohol level was 305, patient is being monitor and has a sitter, will monitor patient for 48 hours for any DT and withdrawal, once clinically stable, will have crisis team evaluate the patient, patient will benefit going to inpatient psychiatric hospital. patient is clinically stable, no signs or symptoms of DT or withdrawal, patient medically clear for evaluation by the crisis team, patient will benefit going to inpatient psychiatrist care. patient was seen by the crisis team and evaluated the patient, patient is safe to discharge home. Time Spent with Patient Time attestation: Total time spent providing and/or coordinating discharge services: Exam Narrative: Patient is comfortable, NAD HEENT: eyes are clear and none icteric LUNGS:CTA HEART: RR S1S2 ABD: BS+, Soft and nontender Lower extremities: no edema SKIN: nonjaundiced Neuro: grossly intact. DS: Data Data Completed and Pending Labs on day of discharge: Labs from last 24 hours 11/24/24 11/23/24 03:56 07:19 WBC 4.8 RBC 4.09 L Hgb 13.8 L Hct 40.4 L MCV 98.8 MCH 33.7 MCHC 34.2 RDW 12.9 Plt Count 172 MPV 10.2 Sodium 135 L Potassium 3.8 Chloride 101 Carbon Dioxide 26 Anion Gap 8 BUN 10 Creatinine 0.52 L Estim Creat Clear Calc 154 Estimated GFR > 60 Glucose 87 Calcium 9.4 Phosphorus 3.3 Magnesium 1.6 Total Bilirubin 1.2 AST 92 H ALT 85 H Alkaline Phosphatase 81 Total Protein 7.3 Albumin 4.4 Hepatitis A IgM Ab Negative Hep Bs Antigen Negative Hep B Core IgM Ab Negative Hepatitis C Ab Screen Negative Discharge Plan Discharge Attending physician on discharge: Brandon Roth Consulting providers: Gerard Valadez; Philly Raymond Terry J. Discharging Clinician: Slime Lee Anticipated Discharge Date/Time: 11/24/24 13:05 Patient Disposition: Home Activity: as tolerated Diet: heart healthy Discharge Instructions: patient to follow up with his primary care provider as soon as possible, patient is instructed if any symptoms redevelop to go to nearest ER Patient Instructions: Antibiotic Form Patient Language: Sudanese Stand Alone Forms: General Discharge Information Follow-up/Referrals: Ez Enriquez MD [Primary Care Provider] - Discharge Medications: New folic acid 1 mg Tablet 1 mg PO DAILY Qty: 90 0RF nicotine 14 mg/24 hr Patch 24 Hour 1 patch transdermal 1200 Qty: 28 0RF thiamine HCl (vitamin B1) 100 mg capsule 100 mg PO DAILY Qty: 90 0RF Continued vilazodone [Viibryd] 40 mg tablet 40 mg PO DAILY Rx Instructions: must administer with a meal/food naltrexone 50 mg tablet 50 mg PO DAILY Patient Comments: ruben liao in psychiatry clonazepam 0.5 mg tablet 0.5 mg PO Q12H PRN (Reason: anxiety) Date of admission: 11/22/24 23:38 Primary Care Provider: Ez Enriquez Admitting Provider: Brandon Roth Attending physician on admission: Slime Lee Condition: Stable
== END 2024-11-24 13:05 | disposition home or self-care (01) ==
LOC: ANHED 22:34 → ANHIMU 11-23 00:45 → ANHICU 11-23 01:34
PROVIDERS: Internal Medicine; Physician Assistant; Admitting Provider Internal Medicine; Emergency Provider Physician Assistant; PCP Family Medicine; Visit Provider Family Medicine
DX: T42.4X2A Poisoning by benzodiazepines, intentional self-harm, initial encounter (principal); F10.220 Alcohol dependence with intoxication, uncomplicated; Y90.8 Blood alcohol level of 240 mg/100 ml or more; R74.01 Elevation of levels of liver transaminase levels; F32.A Depression, unspecified; F41.9 Anxiety disorder, unspecified; F17.290 Nicotine dependence, other tobacco product, uncomplicated; Z20.822 Contact with and (suspected) exposure to COVID-19; Z79.899 Other long term (current) drug therapy
CPT/HCPCS: 36415; 76705; 80053; 80074; 80143; 80179; 80307; 81003; 82077; 83735; 84100; 84443; 85025; 85027; 87635; 93005; 96361; 96374; 96375; 96376; 99285; A9270; G0378; J2405; J3411; J7030

== ENCOUNTER 2025-01-09 21:10 | Emergency (ER) | payer BC, SELFPAY ==
--- OUTSIDE RECORDS SUMMARY | 2025-01-09 21:12 | XMS_ITS | Clinical Summary ---
Author Organization [facility] Address [address] [place] [address] Phone Care Team Providers Care Sociology Research Assistant Name Role Phone Unavailable Primary Care Provider [...] on file Legal Sex Male 11:03 AM STAFF CONSULTANT Gender Identity Not on file Sexual Orientation Not on file Last Filed Vital Signs Vital Sign Reading Time Taken Comments Blood Pressure 130/76 05/21/2014 11:24 AM STAFF CONSULTANT Pulse - - Temperature 36.9 C (98.5 F) 05/21/2014 11:24 AM STAFF CONSULTANT Respiratory Rate 18 05/21/2014 11:24 AM STAFF CONSULTANT Oxygen Saturation 100% 05/21/2014 11:24 AM STAFF CONSULTANT Inhaled Oxygen Concentration - - Weight 65.8 kg (145 lb) 05/21/2014 11:24 AM STAFF CONSULTANT Height 177.8 cm (5' 10) 05/21/2014 11:24 AM STAFF CONSULTANT Body Mass Index 20.81 05/21/2014 11:24 AM STAFF CONSULTANT Plan of Treatment Health Maintenance Due Date Last Done Comments HPV VACCINES (1 - Male 3-dose series) 2000 DTAP/TDAP/TD VACCINES (1 - Tdap) 2004 HEPATITIS B VACCINES (1 of 3 - 19+ 3-dose series) 02/2005 INFLUENZA VACCINE (#1) 2025 Insurance [facility] [id number]
--- OUTSIDE RECORDS SUMMARY | 2025-01-09 21:12 | XMS_ITS | Referral Summary ---
Author Organization [facility] Address [address] [place] [id number] Care Team Providers Care Cis Coordinator Name Role Phone Cristofer Gentile MD Primary Care Provider [phone] Allergies No known active allergies Medications traZODone [...] 05/30/2020 Assessment & Plan (05/30/2020 3:55 PM SOD STRIPPER): Recently finished inpatient [place] on 04/26/20. He has been doing well since discharge. He is actively seeing a therapist and aftercare program. I recommend that he establish with a psychiatrist for medical management. ED (erectile dysfunction) of organic origin 02/2020 Assessment & Plan (05/30/2020 3:48 PM SOD STRIPPER): New. We discussed options. Trial of [place] MAKENZIE Raynaud disease 05/30/2020 Assessment & Plan (05/30/2020 3:54 PM SOD STRIPPER): Intermittent. Aggravated by cold. Advised to keep hands warm. SUSAN (generalized anxiety disorder) 08/11/2019 Assessment & Plan (05/30/2020 3:49 PM SOD STRIPPER): SUSAN is controlled. Continue current treatment regimen. Regular aerobic exercise. Psychological condition will be reassessed at the next regular appointment. Actively seeing a counsellor. Assessment & Plan (08/11/2019 10:35 AM SOD STRIPPER): SUSAN is newly identified. Regular aerobic exercise. Referral to psychological counseling. Begin SSRI Psychological condition will be reassessed in 3 months. Panic disorder 08/11/2019 Assessment & Plan (08/11/2019 10:35 AM SOD STRIPPER): Panic is newly identified. Regular aerobic exercise. Referral to psychological counseling. Begin SSRI Psychological condition will be reassessed in 3 months. Prehypertension 02/08/2019 Assessment & Plan (05/30/2020 3:50 PM SOD STRIPPER): PreHypertension is improving with lifestyle modifications Continue [...] for 40 seconds each. Aftercare instructions given. 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 file Not on file Not on file Last Filed Vital Signs Vital Sign Reading Time Taken Comments Blood Pressure 110/62 05/30/2020 3:39 PM SOD STRIPPER Pulse 110 05/30/2020 3:39 PM SOD STRIPPER Temperature 36.8 C (98.2 F) 05/30/2020 3:39 PM SOD STRIPPER Respiratory Rate 16 08/11/2019 10:2 3 AM SOD STRIPPER Oxygen Saturation 98% 05/30/2020 3:39 PM SOD STRIPPER Inhaled Oxygen Concentration - - Weight 70.7 kg (155 lb 14.4 oz) 05/30/2020 3:39 PM SOD STRIPPER Height 181.6 cm (5' 11.5) 05/30/2020 3:39 PM CS T Body Mass Index 21.44 05/30/2020 3:39 PM SOD STRIPPER Plan of Treatment [place] [address] [facility] EPO Care Teams Cis Coordinator Relationship Specialty Start Date End Date Cristofer Gentile MD [address] [place] [address] DR Jaylyn COLLINS [address] [place] [id number] PCP - General Internal Medicine 02/03/18
--- OUTSIDE RECORDS SUMMARY | 2025-01-09 21:12 | XMS_ITS | Patient Health Record ---
Author Organization [facility] Address [address] [facility] [address] [place] [address] Care Team Providers Care Circuit Rider Name Role Phone Zeus Francis Unavailable [phone] Reason For Referral No Information Medications Medication SIG (Take, Route, Fr equency, Duration) Notes Start Date End Date Status Naltrexone HCl 50 MG Oral 09/19/2019 Active Sertraline HCl 50 MG Oral 09/19/2019 Active Plan Of Treatment No Information Insurance Providers Payer Name Payer Address Payer Phone Subscriber Number Group Number Insured Name Patient Relationship to Insured Coverage Start Date Coverage End Date bs-[address] [place] [address] [id number] HYACINTH GARNER Self - patient is the insured
--- OUTSIDE RECORDS SUMMARY | 2025-01-09 21:12 | XMS_ITS | Clinical Summary ---
Author Organization [facility] Address [address] [place] [address] Care Team Providers Care Activities Officer Name Role Phone Cristofer Gentile MD Primary Care Provider [phone] Allergies No known active allergies Medications traZODone [...] 05/30/2020 Assessment & Plan (05/30/2020 3:55 PM COLOR WORKER): Recently finished inpatient [place] on 04/26/20. He has been doing well since discharge. He is actively seeing a therapist and aftercare program. I recommend that he establish with a psychiatrist for medical management. ED (erectile dysfunction) of organic origin 02/2020 Assessment & Plan (05/30/2020 3:48 PM COLOR WORKER): New. We discussed options. Trial of [place] MAKENZIE Raynaud disease 05/30/2020 Assessment & Plan (05/30/2020 3:54 PM COLOR WORKER): Intermittent. Aggravated by cold. Advised to keep hands warm. SUSAN (generalized anxiety disorder) 08/11/2019 Assessment & Plan (05/30/2020 3:49 PM COLOR WORKER): SUSAN is controlled. Continue current treatment regimen. Regular aerobic exercise. Psychological condition will be reassessed at the next regular appointment. Actively seeing a counsellor. Assessment & Plan (08/11/2019 10:35 AM COLOR WORKER): SUSAN is newly identified. Regular aerobic exercise. Referral to psychological counseling. Begin SSRI Psychological condition will be reassessed in 3 months. Panic disorder 08/11/2019 Assessment & Plan (08/11/2019 10:35 AM COLOR WORKER): Panic is newly identified. Regular aerobic exercise. Referral to psychological counseling. Begin SSRI Psychological condition will be reassessed in 3 months. Prehypertension 02/08/2019 Assessment & Plan (05/30/2020 3:50 PM COLOR WORKER): PreHypertension is improving with lifestyle modifications Continue [...] for 40 seconds each. Aftercare instructions given. 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 on file Not on file Not on file Obstetrics History Last Filed Vital Signs Vital Sign Reading Time Taken Comments Blood Pressure 110/62 05/30/2020 3:39 PM COLOR WORKER Pulse 110 05/30/2020 3:39 PM COLOR WORKER Temperature 36.8 C (98.2 F) 05/30/2020 3:39 PM COLOR WORKER Respiratory Rate 16 08/11/2019 10:2 3 AM COLOR WORKER Oxygen Saturation 98% 05/30/2020 3:39 PM COLOR WORKER Inhaled Oxygen Concentration - - Weight 70.7 kg (155 lb 14.4 oz) 05/30/2020 3:39 PM COLOR WORKER Height 181.6 cm (5' 11.5) 05/30/2020 3:39 PM CS T Body Mass Index 21.44 05/30/2020 3:39 PM COLOR WORKER Plan of Treatment Not on file Insurance [facility] EPO Care Teams Activities Officer Relationship Specialty Start Date End Date Cristofer Gentile MD [address] [place] [address] DR Jaylyn COLLINS [address] [place] [id number] PCP - General Internal Medicine 02/03/18
--- OUTSIDE RECORDS SUMMARY | 2025-01-09 21:12 | XMS_ITS | Clinical Summary ---
Author Organization [facility] Care Team Providers Care Centrifugal Spinner Name Role Phone Unavailable Primary Care Provider [...] Virus (HCV) Screening 1985 TdaP Immunization 1985 Human Papillomavirus (HPV) Immunization (1 - Male 3-dose series) 2000 Hepatitis B Immunization (1 of 3 - 19+ 3-dose series) 2004 SARS-COV-2 Immunization ( - season) 2024 04/19/2021, 08/24/2020 Influenza Immunization (#1) 02/20/202503/23, 04/27/2020 Respiratory Syncytial Virus (RSV) Immunization (Adult) (1 [...]
--- OUTSIDE RECORDS SUMMARY | 2025-01-09 21:12 | XMS_ITS | Clinical Summary ---
Author Organization [facility] Address [address] [facility] [place] [address] Care Team Providers Care Sheet Layer Name Role Phone Ez Enriquez MD Primary Care Provider [phone] Source Comments [facility],non-owned Affiliates and Associated Physician Practices is amultiple site organization consisting of ambulatory clinics and hospital sitesin [place], [place], [place] and [place]. This disclosure is being madepursuant to the Care Everywhere program and may not contain all information available regarding this patient. Last updated 18.[facility] Allergies No known active allergies Medications * [...] Comments Blood Pressure 124/83 05/30/2018 1:06 PM ACTIVITY THERAPIST Pulse 119 05/30/2018 1:06 PM ACTIVITY THERAPIST Temperature 36.9 C (98.4 F) 05/30/2018 1:06 PM ACTIVITY THERAPIST Respiratory Rate 18 05/30/2018 1:06 PM ACTIVITY THERAPIST Oxygen Saturation 100% 05/30/2018 1:06 PM ACTIVITY THERAPIST Inhaled Oxygen Concentration - - Weight 72.6 kg (160 lb) 05/30/2018 1:06 PM ACTIVITY THERAPIST Height 180.3 cm (5' 11) 05/30/2018 1:06 PM ACTIVITY THERAPIST Body Mass Index 22.32 05/30/2018 1:06 PM ACTIVITY THERAPIST Plan of Treatment Health Maintenance Due Date Last Done Comments HIV SCREENING 2000 HEPATITIS C SCREENING 10/24/2003 HEPATITIS B VACCINE (1 of 3 - 19+ 3-dose series) 2004 HPV VACCINE (1 - 3-dose SCDM series) 2012 COVID-19 VACCINE ( - 2023-2 5 season) 2024 DTAP/TDAP/TD VACCINES (2 - T d or Tdap) 03/26/2024 03/26/2014 DEPRESSION SCREENING 06/22/2024 INFLUENZA VACCINE (#1) 2025 ZOSTER VACCINE (1 of 2) 10/29/2035 [...] age to complete this topic Insurance [employer] [facility] Care Teams Sheet Layer Relationship Specialty Start Date End Date Ez Enriquez MD [address] [place] [address] PCP - General 05/27/21
[2025-01-09 21:20] VITALS: BP 130/87; PULSE 125; RESP 18; O2SAT 96
--- OUTSIDE RECORDS SUMMARY | 2025-01-09 21:58 | XMS_ITS | Clinical Summary ---
Author Organization [facility] Address [address] [facility] [place] [address] Care Team Providers Care Swaging Machine Operator Name Role Phone Ez Enriquez MD Primary Care Provider [phone] Source Comments [facility],non-owned Affiliates and Associated Physician Practices is amultiple site organization consisting of ambulatory clinics and hospital sitesin [place], [place], [place] and [place]. This disclosure is being madepursuant to the Care Everywhere program and may not contain all information available regarding this patient. Last updated 18.[facility] Allergies No known active allergies Medications * [...] Comments Blood Pressure 124/83 05/30/2018 1:06 PM PC NETWORK TECHNICIAN Pulse 119 05/30/2018 1:06 PM PC NETWORK TECHNICIAN Temperature 36.9 C (98.4 F) 05/30/2018 1:06 PM PC NETWORK TECHNICIAN Respiratory Rate 18 05/30/2018 1:06 PM PC NETWORK TECHNICIAN Oxygen Saturation 100% 05/30/2018 1:06 PM PC NETWORK TECHNICIAN Inhaled Oxygen Concentration - - Weight 72.6 kg (160 lb) 05/30/2018 1:06 PM PC NETWORK TECHNICIAN Height 180.3 cm (5' 11) 05/30/2018 1:06 PM PC NETWORK TECHNICIAN Body Mass Index 22.32 05/30/2018 1:06 PM PC NETWORK TECHNICIAN Plan of Treatment Health Maintenance Due Date [...] age to complete this topic Insurance [employer] [facility] Care Teams Swaging Machine Operator Relationship Specialty Start Date End Date Ez Enriquez MD [address] [place] [address] PCP - General 05/27/21
--- OUTSIDE RECORDS SUMMARY | 2025-01-09 21:58 | XMS_ITS | Clinical Summary ---
Author Organization [facility] Address [address] [place] [address] Phone Care Team Providers Care Calculation Clerk Name Role Phone Unavailable Primary Care Provider [...] on file Legal Sex Male 11:03 AM SALES TRAINING MANAGER Gender Identity Not on file Sexual Orientation Not on file Last Filed Vital Signs Vital Sign Reading Time Taken Comments Blood Pressure 130/76 05/21/2014 11:24 AM SALES TRAINING MANAGER Pulse - - Temperature 36.9 C (98.5 F) 05/21/2014 11:24 AM SALES TRAINING MANAGER Respiratory Rate 18 05/21/2014 11:24 AM SALES TRAINING MANAGER Oxygen Saturation 100% 05/21/2014 11:24 AM SALES TRAINING MANAGER Inhaled Oxygen Concentration - - Weight 65.8 kg (145 lb) 05/21/2014 11:24 AM SALES TRAINING MANAGER Height 177.8 cm (5' 10) 05/21/2014 11:24 AM SALES TRAINING MANAGER Body Mass Index 20.81 05/21/2014 11:24 AM SALES TRAINING MANAGER Plan of Treatment Health Maintenance Due Date Last Done Comments HPV VACCINES (1 - Male 3-dose series) 2000 DTAP/TDAP/TD VACCINES (1 - Tdap) 2004 HEPATITIS B VACCINES (1 of 3 - 19+ 3-dose series) 02/2005 INFLUENZA VACCINE (#1) 2025 Insurance [facility] [id number]
--- OUTSIDE RECORDS SUMMARY | 2025-01-09 21:58 | XMS_ITS | Referral Summary ---
Author Organization [facility] Address [address] [place] [id number] Care Team Providers Care Foster Care Therapist Name Role Phone Cristofer Gentile MD Primary Care Provider [phone] Allergies No known active allergies Medications traZODone [...] 05/30/2020 Assessment & Plan (05/30/2020 3:55 PM INVOICE CLASSIFICATION CLERK): Recently finished inpatient [place] on 04/26/20. He has been doing well since discharge. He is actively seeing a therapist and aftercare program. I recommend that he establish with a psychiatrist for medical management. ED (erectile dysfunction) of organic origin 02/2020 Assessment & Plan (05/30/2020 3:48 PM INVOICE CLASSIFICATION CLERK): New. We discussed options. Trial of [place] MAKENZIE Raynaud disease 05/30/2020 Assessment & Plan (05/30/2020 3:54 PM INVOICE CLASSIFICATION CLERK): Intermittent. Aggravated by cold. Advised to keep hands warm. SUSAN (generalized anxiety disorder) 08/11/2019 Assessment & Plan (05/30/2020 3:49 PM INVOICE CLASSIFICATION CLERK): SUSAN is controlled. Continue current treatment regimen. Regular aerobic exercise. Psychological condition will be reassessed at the next regular appointment. Actively seeing a counsellor. Assessment & Plan (08/11/2019 10:35 AM INVOICE CLASSIFICATION CLERK): SUSAN is newly identified. Regular aerobic exercise. Referral to psychological counseling. Begin SSRI Psychological condition will be reassessed in 3 months. Panic disorder 08/11/2019 Assessment & Plan (08/11/2019 10:35 AM INVOICE CLASSIFICATION CLERK): Panic is newly identified. Regular aerobic exercise. Referral to psychological counseling. Begin SSRI Psychological condition will be reassessed in 3 months. Prehypertension 02/08/2019 Assessment & Plan (05/30/2020 3:50 PM INVOICE CLASSIFICATION CLERK): PreHypertension is improving with lifestyle modifications Continue [...] for 40 seconds each. Aftercare instructions given. 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 [employer] Not on file Not on file Not on file Last Filed Vital Signs Vital Sign Reading Time Taken Comments Blood Pressure 110/62 05/30/2020 3:39 PM INVOICE CLASSIFICATION CLERK Pulse 110 05/30/2020 3:39 PM INVOICE CLASSIFICATION CLERK Temperature 36.8 C (98.2 F) 05/30/2020 3:39 PM INVOICE CLASSIFICATION CLERK Respiratory Rate 16 08/11/2019 10:2 3 AM INVOICE CLASSIFICATION CLERK Oxygen Saturation 98% 05/30/2020 3:39 PM INVOICE CLASSIFICATION CLERK Inhaled Oxygen Concentration - - Weight 70.7 kg (155 lb 14.4 oz) 05/30/2020 3:39 PM INVOICE CLASSIFICATION CLERK Height 181.6 cm (5' 11.5) 05/30/2020 3:39 PM CS T Body Mass Index 21.44 05/30/2020 3:39 PM INVOICE CLASSIFICATION CLERK Plan of Treatment [place] [address] [facility] EPO Member Subscriber Plan / Payer (Ef fective 2019-Present) Name:Steve Figueroa Relation to Subscriber:Self Name:Steve Figueroa Payer ID:[id number] (NAIC) Type: Weight Wins Address: [facility] [address] [place] [address] Care Teams Foster Care Therapist Relationship Specialty Start Date End Date Cristofer Gentile MD [address] [place] [address] DR Jaylyn COLLINS [address] [place] [phone] PCP - General Internal Medicine 02/03/18
--- OUTSIDE RECORDS SUMMARY | 2025-01-09 21:58 | XMS_ITS | Clinical Summary ---
Author Organization [facility] Care Team Providers Care Shank Cutter Name Role Phone Unavailable Primary Care Provider [...]
--- OUTSIDE RECORDS SUMMARY | 2025-01-09 21:58 | XMS_ITS | Clinical Summary ---
Author Organization [facility] Address [address] [place] [id number] Care Team Providers Care Smoking Pipe Coater Name Role Phone Cristofer Gentile MD Primary Care Provider [phone] Allergies No known active allergies Medications traZODone [...] 05/30/2020 Assessment & Plan (05/30/2020 3:55 PM WATCH DIAL STONER): Recently finished inpatient [place] on 04/26/20. He has been doing well since discharge. He is actively seeing a therapist and aftercare program. I recommend that he establish with a psychiatrist for medical management. ED (erectile dysfunction) of organic origin 02/2020 Assessment & Plan (05/30/2020 3:48 PM WATCH DIAL STONER): New. We discussed options. Trial of [place] MAKENZIE Raynaud disease 05/30/2020 Assessment & Plan (05/30/2020 3:54 PM WATCH DIAL STONER): Intermittent. Aggravated by cold. Advised to keep hands warm. SUSAN (generalized anxiety disorder) 08/11/2019 Assessment & Plan (05/30/2020 3:49 PM WATCH DIAL STONER): SUSAN is controlled. Continue current treatment regimen. Regular aerobic exercise. Psychological condition will be reassessed at the next regular appointment. Actively seeing a counsellor. Assessment & Plan (08/11/2019 10:35 AM WATCH DIAL STONER): SUSAN is newly identified. Regular aerobic exercise. Referral to psychological counseling. Begin SSRI Psychological condition will be reassessed in 3 months. Panic disorder 08/11/2019 Assessment & Plan (08/11/2019 10:35 AM WATCH DIAL STONER): Panic is newly identified. Regular aerobic exercise. Referral to psychological counseling. Begin SSRI Psychological condition will be reassessed in 3 months. Prehypertension 02/08/2019 Assessment & Plan (05/30/2020 3:50 PM WATCH DIAL STONER): PreHypertension is improving with lifestyle modifications Continue [...] for 40 seconds each. Aftercare instructions given. 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 [employer] Not on file Not on file Not on file Obstetrics History Last Filed Vital Signs Vital Sign Reading Time Taken Comments Blood Pressure 110/62 05/30/2020 3:39 PM WATCH DIAL STONER Pulse 110 05/30/2020 3:39 PM WATCH DIAL STONER Temperature 36.8 C (98.2 F) 05/30/2020 3:39 PM WATCH DIAL STONER Respiratory Rate 16 08/11/2019 10:2 3 AM WATCH DIAL STONER Oxygen Saturation 98% 05/30/2020 3:39 PM WATCH DIAL STONER Inhaled Oxygen Concentration - - Weight 70.7 kg (155 lb 14.4 oz) 05/30/2020 3:39 PM WATCH DIAL STONER Height 181.6 cm (5' 11.5) 05/30/2020 3:39 PM CS T Body Mass Index 21.44 05/30/2020 3:39 PM WATCH DIAL STONER Plan of Treatment Not on file Insurance [facility] EPO Care Teams Smoking Pipe Coater Relationship Specialty Start Date End Date Cristofer Gentile MD [address] [place] [address] DR Jaylyn COLLINS [address] [place] [id number] PCP - General Internal Medicine 02/03/18
[2025-01-09] MEDS: LORATADINE 10 MG TABLET PO (22:38)
--- NOTE | 2025-01-10 05:09 | ED_ITS ---
HPI - Ear Problem General Chief complaint: Ear Stated complaint: R. ear pain Time Seen by Provider: 01/09/25 21:44 History of Present Illness HPI Narrative: 39-year-old male presenting with right ear pain for 5 days. Endorses decreased sensation. No trauma or injury. No water exposure, no insertions into the ear. No other symptoms such as neck stiffness or difficulty opening closing the mouth or jaw. No fever, chills, speech changes. Was otherwise in his normal state of health. No recent antibiotic use. No history of otitis. Endorses several days that he has had some drainage out of the right ear. Related Data Home Medications ?Medication ?Instructions ?Recorded ?Confirmed ?Last Taken ?Type clonazepam 0.5 mg tablet 0.5 mg PO Q12H PRN anxiety 10/24/21 11/23/24 Unknown History vilazodone 40 mg tablet (Viibryd) 40 mg PO DAILY 12/11/22 11/23/24 Unknown History naltrexone 50 mg tablet 50 mg PO DAILY 10/28/23 11/23/24 Unknown History Allergies Allergy/AdvReac Type Severity Reaction Status Date / Time No Known Allergies Allergy Verified 01/09/25 21:13 Review of Systems Review of Systems: As reviewed [facility] in [facility] Past Medical History Medical History Depression BMI 20.0-20.9, adult Alcoholism Anxiety Surgical History Surgical History History of repair of right rotator cuff Family History Family History Father Hypertension Mother Dupuytrens contracture Breast cancer Sibling Hypertension Grandparent Depression Grandparent Anxiety Social History Social History Social History: Surrogate medical decision maker: Eulalio Barnettcarlita, spouse. Code status: Full code. Years smoked: 15 Smoking status: Former smoker Tobacco type: e-cigarettes/vaping Second hand tobacco smoke exposure: Yes Alcohol intake: former Alcohol use details: Longstanding history of alcohol abuse. Began drinking again 11/20/2024, half of a 5th a day. Substance use: never Substance use type: marijuana Do You Feel Safe in your Home?: Yes Lack of Transportation: No Lack of Food: Never True Current Housing: I Have Housing Concerned About Future Housing: No Difficulty Paying Gas/Electric Bills: No Difficulty Paying for Meds: No Currently Unemployed: No Education: Associate Degree Difficulty w/ Childcare or Family Care: No Spiritual care concerns: No Exam Narrative: GENERAL: [Well-appearing, well-nourished, and in no acute distress.] HEAD: [Normocephalic, atraumatic.] EYES: [PERRLA and EOMI.] ENT: Right-sided otitis media evident with bulging tympanic membrane with effusion that appear serous, no bleeding, no a tightest externa, no mastoid tenderness or proptosis of the ear. No pain with a regular manipulation NECK: Supple. CHEST: No respiratory distress EXTREMITIES: [No edema.] SKIN: Warm, dry, no rash. NEURO: [No focal deficits]. Alert and oriented [x3.] PSYCH: [Normal mood and affect.] Course Vital Signs Vital signs: Vital Signs Pulse Rate 125 H 01/09/25 21:20 Respiratory Rate 18 01/09/25 21:20 Blood Pressure 130/87 01/09/25 21:20 Pulse Oximetry 96 01/09/25 21:20 Pulse Rate 125 H 01/09/25 21:20 Respiratory Rate 18 01/09/25 21:20 Blood Pressure 130/87 01/09/25 21:20 Pulse Oximetry 96 01/09/25 21:20 Medical Decision Making MDM Narrative Medical decision making narrative: 39-year-old male presenting with right ear pain for 5 days. Endorses decreased sensation. No trauma or injury. No water exposure, no insertions into the ear. No other symptoms such as neck stiffness or difficulty opening closing the mouth or jaw. No fever, chills, speech changes. Was otherwise in his normal state of health. No recent antibiotic use. No history of otitis. Endorses several days that he has had some drainage out of the right ear. Right-sided otitis media evident with bulging tympanic membrane with effusion that appear serous, no bleeding, no a tightest externa, no mastoid tenderness or proptosis of the ear. No pain with a regular manipulation. Patient is not ill or septic appearing. Will be treated with oral antibiotics and given return precautions an ENT follow-up. Patient's questions were answered he was safe for discharge. Medical Records Medical records reviewed: Yes I reviewed the external patient's medical records. Vital Signs Vital Signs: Vital Signs Pulse Rate 125 H 01/09/25 21:20 Respiratory Rate 18 01/09/25 21:20 Blood Pressure 130/87 01/09/25 21:20 Pulse Oximetry 96 01/09/25 21:20 Pulse Rate 125 H 01/09/25 21:20 Respiratory Rate 18 01/09/25 21:20 Blood Pressure 130/87 01/09/25 21:20 Pulse Oximetry 96 01/09/25 21:20 Lab Data Lab results reviewed: Yes I reviewed the patient's lab results. Discharge Plan Discharge Clinical Impression: Acute right otitis media Patient Disposition: Home Condition: Stable Instructions: Antibiotic Form, Ear Infection (AC), Fluid In The Ear (Serous Otitis Media) (ED) Additional Instructions: Take the prescribed antibiotics twice daily for next 7 days in addition to the daily decongestant medication. He can take Tylenol and ibuprofen every 8 hours for pain and symptom relief. Follow-up will be with your nose and throat if symptoms are not improving after the next week. Refrain from blowing your nose heavily or other potential sources of trauma such as Q-tips or other things in the ear. Patient Language: Samoan Prescriptions: New amoxicillin-pot clavulanate 875-125 mg tablet 1 tablet PO Q12H 7 Days Qty: 14 0RF loratadine [Claritin] 10 mg tablet 10 mg PO DAILY Qty: 30 0RF No Action vilazodone [Viibryd] 40 mg tablet 40 mg PO DAILY Rx Instructions: must administer with a meal/food naltrexone 50 mg tablet 50 mg PO DAILY Patient Comments: [facility] clonazepam 0.5 mg tablet 0.5 mg PO Q12H PRN (Reason: anxiety) folic acid 1 mg Tablet 1 mg PO DAILY Qty: 90 0RF nicotine 14 mg/24 hr Patch 24 Hour 1 patch transdermal 1200 Qty: 28 0RF thiamine HCl (vitamin B1) 100 mg capsule 100 mg PO DAILY Qty: 90 0RF Follow-up/Referrals: Maximo Huynh MD [Physician] - 1 Week (Middle ear infection, hearing loss) Ez Enriquez MD [Primary Care Provider] - Time of Disposition: 22:34
== END 2025-01-09 22:43 | disposition home or self-care (01) ==
PROVIDERS: Emergency Provider Student in an Organized Health Care Education/Training Program; PCP Family Medicine
DX: H66.91 Otitis media, unspecified, right ear (principal); F32.A Depression, unspecified; F41.9 Anxiety disorder, unspecified
CPT/HCPCS: 99283; A9270

== ENCOUNTER 2025-03-10 08:45 | Observation (INO) | payer BC, SELFPAY ==
[2025-03-10] VITALS (42 sets, daily range): BP systolic 128–150; BP diastolic 74–99; PULSE 100–125; RESP 12–24; TEMP 36.7–37.6; O2SAT 16–100; BMI 22.1
--- NOTE | ~2025-03-10 | XR_ITS ---
EXAMINATION: XR chest 2V DATE: 03/10/2025 09:25 INDICATION: Chest pain TECHNIQUE: PA and lateral views of the chest were obtained. COMPARISON: None FINDINGS: The lungs are clear with no focal airspace opacities, pulmonary edema, pleural effusion or pneumothorax. The cardiomediastinal silhouette is normal. Mild thoracic dextrocurvature. IMPRESSION: 1. No acute cardiopulmonary disease. Reviewed, dictated and finalized at location A.
--- OUTSIDE RECORDS SUMMARY | 2025-03-10 08:47 | XMS_ITS | Clinical Summary ---
Author Organization [facility] Address [address] [place] [address] Care Team Providers Care Cardiovascular Disease Specialist Name Role Phone Ez Enriquez MD Primary Care Provider [phone] Source Comments [facility],non-owned Affiliates and Associated Physician Practices is amultiple site organization consisting of ambulatory clinics and hospital sitesin [place], [place], [place]. This disclosure is being madepursuant to the Care Everywhere program and may not contain all information available regarding this patient. Last updated 18.[facility] Allergies No known active allergies Medications * [...] Comments Blood Pressure 124/83 05/30/2018 1:06 PM PATIENT ACCOUNT ANALYST Pulse 119 05/30/2018 1:06 PM PATIENT ACCOUNT ANALYST Temperature 36.9 C (98.4 F) 05/30/2018 1:06 PM PATIENT ACCOUNT ANALYST Respiratory Rate 18 05/30/2018 1:06 PM PATIENT ACCOUNT ANALYST Oxygen Saturation 100% 05/30/2018 1:06 PM PATIENT ACCOUNT ANALYST Inhaled Oxygen Concentration - - Weight 72.6 kg (160 lb) 05/30/2018 1:06 PM PATIENT ACCOUNT ANALYST Height 180.3 cm (5' 11) 05/30/2018 1:06 PM PATIENT ACCOUNT ANALYST Body Mass Index 22.32 05/30/2018 1:06 PM PATIENT ACCOUNT ANALYST Plan of Treatment Health Maintenance Due Date Last Done Comments HIV SCREENING 2000 HEPATITIS C SCREENING 10/24/2003 HEPATITIS B VACCINE (1 of 3 - 19+ 3-dose series) 2004 HPV VACCINE (1 - 3-dose SCDM series) 2012 DTAP/TDAP/TD VACCINES (2 - T d or Tdap) 03/26/2024 03/26/2014 DEPRESSION SCREENING 06/22/2024 COVID-19 VACCINE (1 - 2023-2 5 season) 2025 INFLUENZA VACCINE (#1) 2025 ZOSTER VACCINE (1 [...] age to complete this topic Insurance [employer] Care Teams Cardiovascular Disease Specialist Relationship Specialty Start Date End Date Ez Enriquez MD [address] [place] [address] PCP - General 05/27/21
--- OUTSIDE RECORDS SUMMARY | 2025-03-10 08:47 | XMS_ITS | Clinical Summary ---
Author Organization [facility] Care Team Providers Care Quality Director Name Role Phone Unavailable Primary Care Provider [...] of 3 - 19+ 3-dose series) 2004 Human Papillomavirus (HPV) Immunization (1 - 3-dose SCDM series) 2012 SARS-COV-2 Immunization (3 - season) 2024 04/19/2021, 08/24/2020 Influenza Immunization [...]
--- OUTSIDE RECORDS SUMMARY | 2025-03-10 08:47 | XMS_ITS | Clinical Summary ---
Author Organization [facility] Address [address] [place] [address] Phone Care Team Providers Care Solar System Designer Name Role Phone Unavailable Primary Care Provider [...] on file Legal Sex Male 11:03 AM TOURISM RADIO PRESENTER Gender Identity Not on file Sexual Orientation Not on file Last Filed Vital Signs Vital Sign Reading Time Taken Comments Blood Pressure 130/76 05/21/2014 11:24 AM TOURISM RADIO PRESENTER Pulse - - Temperature 36.9 C (98.5 F) 05/21/2014 11:24 AM TOURISM RADIO PRESENTER Respiratory Rate 18 05/21/2014 11:24 AM TOURISM RADIO PRESENTER Oxygen Saturation 100% 05/21/2014 11:24 AM TOURISM RADIO PRESENTER Inhaled Oxygen Concentration - - Weight 65.8 kg (145 lb) 05/21/2014 11:24 AM TOURISM RADIO PRESENTER Height 177.8 cm (5' 10) 05/21/2014 11:24 AM TOURISM RADIO PRESENTER Body Mass Index 20.81 05/21/2014 11:24 AM TOURISM RADIO PRESENTER Plan of Treatment Health Maintenance Due Date Last Done Comments DTAP/TDAP/TD VACCINES (1 - Tdap) 2004 HEPATITIS B VACCINES (1 of 3 - 19+ 3-dose series) 02/2005 HPV VACCINES (1 - 3-dose SCDM series) 2012 INFLUENZA VACCINE (#1) 2025 Insurance [facility] [employer] PPO [id number]
--- OUTSIDE RECORDS SUMMARY | 2025-03-10 08:47 | XMS_ITS | Clinical Summary ---
Author Organization [facility] Address [address] [place] [phone] Care Team Providers Care Drop Man Name Role Phone Cristofer Gentile MD Primary Care Provider [phone] Allergies No known active allergies Medications traZODone [...] 05/30/2020 Assessment & Plan (05/30/2020 3:55 PM NUCLEAR OPERATOR): Recently finished inpatient [place] on 04/26/20. He has been doing well since discharge. He is actively seeing a therapist and aftercare program. I recommend that he establish with a psychiatrist for medical management. ED (erectile dysfunction) of organic origin 02/2020 Assessment & Plan (05/30/2020 3:48 PM NUCLEAR OPERATOR): New. We discussed options. Trial of [place] MAKENZIE Raynaud disease 05/30/2020 Assessment & Plan (05/30/2020 3:54 PM NUCLEAR OPERATOR): Intermittent. Aggravated by cold. Advised to keep hands warm. SUSAN (generalized anxiety disorder) 08/11/2019 Assessment & Plan (05/30/2020 3:49 PM NUCLEAR OPERATOR): SUSAN is controlled. Continue current treatment regimen. Regular aerobic exercise. Psychological condition will be reassessed at the next regular appointment. Actively seeing a counsellor. Assessment & Plan (08/11/2019 10:35 AM NUCLEAR OPERATOR): SUSAN is newly identified. Regular aerobic exercise. Referral to psychological counseling. Begin SSRI Psychological condition will be reassessed in 3 months. Panic disorder 08/11/2019 Assessment & Plan (08/11/2019 10:35 AM NUCLEAR OPERATOR): Panic is newly identified. Regular aerobic exercise. Referral to psychological counseling. Begin SSRI Psychological condition will be reassessed in 3 months. Prehypertension 02/08/2019 Assessment & Plan (05/30/2020 3:50 PM NUCLEAR OPERATOR): PreHypertension is improving with lifestyle modifications Continue [...] for 40 seconds each. Aftercare instructions given. 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 file Not on file Obstetrics History Last Filed Vital Signs Vital Sign Reading Time Taken Comments Blood Pressure 110/62 05/30/2020 3:39 PM NUCLEAR OPERATOR Pulse 110 05/30/2020 3:39 PM NUCLEAR OPERATOR Temperature 36.8 C (98.2 F) 05/30/2020 3:39 PM NUCLEAR OPERATOR Respiratory Rate 16 08/11/2019 10:2 3 AM NUCLEAR OPERATOR Oxygen Saturation 98% 05/30/2020 3:39 PM NUCLEAR OPERATOR Inhaled Oxygen Concentration - - Weight 70.7 kg (155 lb 14.4 oz) 05/30/2020 3:39 PM NUCLEAR OPERATOR Height 181.6 cm (5' 11.5) 05/30/2020 3:39 PM CS T Body Mass Index 21.44 05/30/2020 3:39 PM NUCLEAR OPERATOR Plan of Treatment Not on file Insurance [facility] EPO Care Teams Drop Man Relationship Specialty Start Date End Date Cristofer Gentile MD [address] [place] [address] DR Jaylyn COLLINS [address] [place] [id number] PCP - General Internal Medicine 02/03/18
--- NOTE | 2025-03-10 08:48 | ED_ITS ---
HPI - Alcohol General Chief Complaint: Alcohol <Rogerio Del Rio APRN - Last Filed: 03/10/25 14:31> Stated Complaint: alcohol withdrawl <Rogerio Del Rio APRN - Last Filed: 03/10/25 14:31> Time Seen by Provider: 03/10/25 08:48 <Rogerio Del Rio APRN - Last Filed: 03/10/25 14:31> Source: patient <Rogerio Del Rio APRN - Last Filed: 03/10/25 14:31> Mode of arrival: ambulatory <Rogerio Del Rio APRN - Last Filed: 03/10/25 14:31> Limitations: no limitations <Rogerio Del Rio APRN - Last Filed: 03/10/25 14:31> History of Present Illness HPI narrative: Steve is 39-year-old male patient presenting to the ER today with complaints of alcohol withdrawal. He reports last alcoholic intake was 6-7 hours ago-he drinks vodka daily. Has been bingeing and drinking a 5th of vodka per day. He is reporting some midsternal chest pain, nausea, vomiting, and numbness and tingling in his feet. Has been in detox facility before and is willing to go to a detox facility again. Ciwa score is 26 at this time. <Rogerio Del Rio APRN - Last Filed: 03/10/25 14:31> Related Data Home Medications: Home Medications ?Medication ?Instructions ?Recorded ?Confirmed ?Last Taken ?Type clonazepam 0.5 mg tablet 0.5 mg PO Q12H PRN anxiety 0 10/24/21 03/10/25 Unknown History <Rogerio Del Rio APRN - Last Filed: 03/10/25 14:31> Allergies/Adverse Reactions: Allergies Allergy/AdvReac Type Severity Reaction Status Date / Time No Known Allergies Allergy Verified 01/25/25 15:48 <Rogerio Del Rio APRN - Last Filed: 03/10/25 14:31> Review of Systems 2 Review of Systems: Pertinent positives per HPI. Patient denies any fever, chills, rash, headache, visual changes, dizziness, cough, runny nose, sore throat, shortness of breath, chest pain, palpitations, nausea, vomiting, diarrhea, constipation, abdominal pain, or any urinary issues. <Rogerio Del Rio APRN - Last Filed: 03/10/25 14:31> [facility] Past Medical History Medical History: Medical History Depression BMI 20.0-20.9, adult Alcoholism Anxiety <Rogerio Del Rio APRN - Last Filed: 03/10/25 14:31> Surgical History Surgical History: Surgical History History of repair of right rotator cuff <Rogerio Del Rio APRN - Last Filed: 03/10/25 14:31> Family History Family History: Family History Father Hypertension Mother Dupuytrens contracture Breast cancer Sibling Hypertension Grandparent Depression Grandparent Anxiety <Rogerio Del Rio APRN - Last Filed: 03/10/25 14:31> Social History Social History: Social History Social History: Surrogate medical decision maker: Eulalio Grjimi, spouse. Code status: Full code. Years smoked: 15 Smoking status: Never smoker Tobacco type: e-cigarettes/vaping Second hand tobacco smoke exposure: No Alcohol intake: current Drinks per week: 70 Alcohol use details: Longstanding history of alcohol abuse. Began drinking again 11/20/2024, half of a 5th a day. Substance use: never Substance use type: does not use Do You Feel Safe in your Home?: Yes Lack of Transportation: No Lack of Food: Never True Current Housing: I Have Housing Concerned About Future Housing: No Difficulty Paying Gas/Electric Bills: No Difficulty Paying for Meds: No Currently Unemployed: No Education: Bachelor's Degree Difficulty w/ Childcare or Family Care: No Spiritual care concerns: No <ALLISON Newberry Last Filed: 03/10/25 14:31> Comments At the time of my signature, I reviewed and agree with the nursing past medical, surgical, social, and family history. There is no relevant family history pertinent to the patient complaint. <Rogerio Del Rio APRN - Last Filed: 03/10/25 14:31> Exam 2 Narrative: General: Well-developed, well nourished, in no apparent distress Head: Normocephalic, atraumatic Eyes: Pupils equally round and reactive to light bilaterally, EOM intact, sclera and conjunctive clear, no discharge, lids normal Ears: TMs intact and clear, ear canals clear, no drainage, grossly hearing normal. Nose: Nares patent, no discharge, no inflammation, no sinus tenderness. Mouth: Oropharynx without lesions or masses, good dentition, MMM. Tongue midline, even rise and fall of uvula Neck: Supple, trachea midline, no enlargement of anterior or posterior cervical nodes, no thyroid masses or goiter palpable. Cardio: Tachycardic rate and regular rhythm, s1 and s2 normal, no murmur appreciated. Resp: Clear to auscultation bilaterally anteriorly and posteriorly, no rhonchi, rales, wheezing or rubs Musculoskeletal: No deformity, non-tender to palpation, grossly normal range of motion, muscle strength strong and equal, peripheral pulse strong, no edema, no cyanosis, normal gait and station Neuro: Alert and oriented x4 with normal speech, no focal deficits, cranial nerves I through XII intact, muscle strength 4 out of 5, numbness/tingling sensation in his feet. Integumentary: [place], warm, and dry, intact without lesion, no rashes. <Rogerio Del Rio APRN - Last Filed: 03/10/25 14:31> Course Course Emergency Course: Portions of this record may have been created with voice recognition software. <Rogerio Del Rio APRN - Last Filed: 03/10/25 14:31> CRIMINAL INVESTIGATIVE AGENT/PA Physician Supervision This visit was performed by both a physician and an APC. I performed all aspects of the MDM as documented. <Ellis Allred MD - Last Filed: 03/10/25 18:07> Vital Signs Vital signs: Vital Signs Pulse Rate 117 H 03/10/25 08:55 Respiratory Rate 17 03/10/25 08:55 Blood Pressure 136/90 03/10/25 08:55 Pulse Oximetry 98 03/10/25 08:55 Oxygen Delivery Room Air 03/10/25 08:55 Temperature 99.7 F H 03/10/25 15:45 Pulse Rate 116 H 03/10/25 16:00 Respiratory Rate 16 03/10/25 15:45 Blood Pressure 131/85 03/10/25 15:45 Pulse Oximetry 98 03/10/25 15:45 Oxygen Delivery Room Air 03/10/25 08:55 Vital signs reviewed <Rogerio Del Rio APRN - Last Filed: 03/10/25 14:31> Vital Signs Pulse Rate 117 H 03/10/25 08:55 Respiratory Rate 17 03/10/25 08:55 Blood Pressure 136/90 03/10/25 08:55 Pulse Oximetry 98 03/10/25 08:55 Oxygen Delivery Room Air 03/10/25 08:55 Temperature 99.7 F H 03/10/25 15:45 Pulse Rate 116 H 03/10/25 16:00 Respiratory Rate 16 03/10/25 15:45 Blood Pressure 131/85 03/10/25 15:45 Pulse Oximetry 98 03/10/25 15:45 Oxygen Delivery Room Air 03/10/25 08:55 <Ellis Allred MD - Last Filed: 03/10/25 18:07> MDM - Alcohol MDM Narrative Medical decision making narrative: At the time of visit patient is resting on the exam table. Patient appears to be nontoxic. Complaints of alcohol withdrawal. He reports last alcoholic intake was 6-7 hours ago-he drinks vodka daily. Has been bingeing and drinking a 5th of vodka per day. He is reporting some midsternal chest pain, nausea, vomiting, and numbness and tingling in his feet. Has been in detox facility before and is willing to go to a detox facility again. Ciwa score is 26 at this time. Patient is alert and oriented x4. Does have mild tremors of the hands, tachycardic. EKG, labs, chest x-ray, urinalysis, alcohol level, ivfs, banana bag, and versed ordered. EKG: EKG shows sinus tachycardia with a heart rate of 117 with a incomplete right bundle-branch block. No ST elevation or depression noted. Labs: White blood cell count 5.4, RBC 4.42, hemoglobin and hematocrit is 15.2 in 46.4 platelet count 180, anti coagulation studies within normal limits, sodium level 135, potassium is 5, chloride is 97, carbon dioxide less than 5, BUN is 12, creatinine 0.94 GFR greater than 60 AST is 174 and ALT is 124 with an alk-phos of 117, troponin less than 0.01 to albumin levels 5.9 lipase is 161. Urinalysis shows 2+ protein and 4+ ketone without sign of infection or blood. Urine drug screen negative. Ethyl alcohol level is 202 1130 Patient resting/sleeping in the exam bed. Patient is easily arousable. CIWA score 2 at this time Plan: Patient here with alcohol abuse-possible withdrawal- initial ciwa score 26 and after medications he is resting on the exam stretcher and ciwa is 2. [address] Valadez- pan pusher and recommends IMU admission. Spoke with Dr. De Paz and he accepts patient for IMU admission. Valium 5mg order PRN placed. IVFs continue. Will continue to monitor. <Rogerio Del Rio, ALLISON - Last Filed: 03/10/25 14:31> At the time of visit patient is resting on the exam table. Patient appears to be nontoxic. Complaints of alcohol withdrawal. He reports last alcoholic intake was 6-7 hours ago-he drinks vodka daily. Has been bingeing and drinking a 5th of vodka per day. He is reporting some midsternal chest pain, nausea, vomiting, and numbness and tingling in his feet. Has been in detox facility before and is willing to go to a detox facility again. Ciwa score is 26 at this time. Patient is alert and oriented x4. Does have mild tremors of the hands, tachycardic. EKG, labs, chest x-ray, urinalysis, alcohol level, ivfs, banana bag, and versed ordered. EKG: EKG shows sinus tachycardia with a heart rate of 117 with a incomplete right bundle-branch block. No ST elevation or depression noted. Labs: White blood cell count 5.4, RBC 4.42, hemoglobin and hematocrit is 15.2 in 46.4 platelet count 180, anti coagulation studies within normal limits, sodium level 135, potassium is 5, chloride is 97, carbon dioxide less than 5, BUN is 12, creatinine 0.94 GFR greater than 60 AST is 174 and ALT is 124 with an alk-phos of 117, troponin less than 0.01 to albumin levels 5.9 lipase is 161. Urinalysis shows 2+ protein and 4+ ketone without sign of infection or blood. Urine drug screen negative. Ethyl alcohol level is 202 1130 Patient resting/sleeping in the exam bed. Patient is easily arousable. CIWA score 2 at this time Plan: Patient here with alcohol abuse-possible withdrawal- initial ciwa score 26 and after medications he is resting on the exam stretcher and ciwa is 2. [address] Valadez- pan pusher and recommends IMU admission. Spoke with Dr. De Paz and he accepts patient for IMU admission. Valium 5mg order PRN placed. IVFs continue. Will continue to monitor. This visit was performed by both a physician and an APC. I performed all aspects of the MDM as documented. <Ellis Allred MD - Last Filed: 03/10/25 18:07> Lab Data Result diagrams: 03/10/25 09:17 03/10/25 09:17 <Rogerio Del Rio APRN - Last Filed: 03/10/25 14:31> Labs: Lab Results 03/10/25 03/10/25 03/10/25 Range/Units 09:17 09:17 09:17 WBC 5.4 (4.5-10.0) K/mm3 RBC 4.42 L (4.6-6.20) M/mm3 Hgb 15.2 (14.0-18.0) g/dL Hct 46.4 (42.0-52.0) % MCV 105.0 H (80-100) fl MCH 34.4 H (26-34) pg MCHC 32.8 (32-36) g/dl RDW 13.5 (11.5-14.5) % Plt Count 180 (150-375) k/mm3 MPV 9.9 (7.4-10.4) fl Immature Gran % (Auto) 0.4 (0-0.5) % Neut % (Auto) 68.2 (45.5-73.1) % Lymph % (Auto) 19.4 (18.3-44.2) % Mccormick % (Auto) 8.6 H (2.6-8.5) % Eos % (Auto) 2.8 (0-4.4) % Baso % (Auto) 0.6 (0.2-1.2) % Lymph # (Auto) 1.04 (0.9-3.2) K/mm3 Mccormick # (Auto) 0.5 (0.1-0.6) K/mm3 Eos # (Auto) 0.2 (0-0.3) K/mm3 Baso # (Auto) 0.0 (0.0-0.1) K/mm3 Abs Immat Gran (auto) 0.02 (0.00-0.031) K/mm3 Absolute Neuts (auto) 3.7 (1.3-6.7) K/mm3 Absolute Nucleated RBC 0.000 (0.0-0.012) K/mm3 Nucleated RBC % 0.0 (0.0-0.2) % PT 13.7 (11.1-14.7) Seconds INR 1.1 APTT 23.7 (22.3-36.8) Seconds Sodium Cancelled 137 Potassium Cancelled 5.0 Chloride Cancelled Carbon Dioxide Anion Gap BUN Creatinine Estim Creat Clear Calc Estimated GFR Glucose Calcium Total Bilirubin AST ALT Alkaline Phosphatase Troponin I (0.000-0.034) ng/mL Total Protein Albumin Lipase Urine Color (Yellow) Urine Appearance (Clear) Urine pH (5.0-9.0) Ur Specific [place] (1.001-1.035) Urine Protein (Negative) mg/dL Urine Glucose (UA) (Negative) mg/dL Urine Ketones (Negative) mg/dL Ur Blood (Man) (Negative) Urine Nitrate (Negative) Urine Bilirubin (Negative) Urine Urobilinogen (<2.0) mg/dL Leukocyte Esterase Rfl (Negative) CARLOS MANUEL/UL Urine RBC (0-2) /hpf Urine WBC (0-3) /hpf Ur Squamous Epith Cells (Few) /hpf Urine Bacteria /hpf Urine Casts Urine Opiates Screen (Negative) Urine Methadone Screen (Negative) Ur Barbiturates Screen (Negative) Ur Phencyclidine Scrn (Negative) Ur Amphetamine Screen (Negative) U Benzodiazepines Scrn (Negative) Urine Cocaine Screen (Negative) U Cannabinoids Screen (Negative) Ethyl Alcohol (<10) mg/dL 03/10/25 03/10/25 03/10/25 Range/Units 09:17 09:17 09:17 WBC (4.5-10.0) K/mm3 RBC (4.6-6.20) M/mm3 Hgb (14.0-18.0) g/dL Hct (42.0-52.0) % MCV (80-100) fl MCH (26-34) pg MCHC (32-36) g/dl RDW (11.5-14.5) % Plt Count (150-375) k/mm3 MPV (7.4-10.4) fl Immature Gran % (Auto) (0-0.5) % Neut % (Auto) (45.5-73.1) % Lymph % (Auto) (18.3-44.2) % Mccormick % (Auto) (2.6-8.5) % Eos % (Auto) (0-4.4) % Baso % (Auto) (0.2-1.2) % Lymph # (Auto) (0.9-3.2) K/mm3 Mccormick # (Auto) (0.1-0.6) K/mm3 Eos # (Auto) (0-0.3) K/mm3 Baso # (Auto) (0.0-0.1) K/mm3 Abs Immat Gran (auto) (0.00-0.031) K/mm3 Absolute Neuts (auto) (1.3-6.7) K/mm3 Absolute Nucleated RBC (0.0-0.012) K/mm3 Nucleated RBC % (0.0-0.2) % PT (11.1-14.7) Seconds INR APTT (22.3-36.8) Seconds Sodium Potassium Chloride 97 L Carbon Dioxide Cancelled < 5 L Anion Gap Cancelled BUN Cancelled Creatinine Estim Creat Clear Calc Estimated GFR Glucose Calcium Total Bilirubin AST ALT Alkaline Phosphatase Troponin I (0.000-0.034) ng/mL Total Protein Albumin Lipase Urine Color (Yellow) Urine Appearance (Clear) Urine pH (5.0-9.0) Ur Specific [place] (1.001-1.035) Urine Protein (Negative) mg/dL Urine Glucose (UA) (Negative) mg/dL Urine Ketones (Negative) mg/dL Ur Blood (Man) (Negative) Urine Nitrate (Negative) Urine Bilirubin (Negative) Urine Urobilinogen (<2.0) mg/dL Leukocyte Esterase Rfl (Negative) CARLOS MANUEL/UL Urine RBC (0-2) /hpf Urine WBC (0-3) /hpf Ur Squamous Epith Cells (Few) /hpf Urine Bacteria /hpf Urine Casts Urine Opiates Screen (Negative) Urine Methadone Screen (Negative) Ur Barbiturates Screen (Negative) Ur Phencyclidine Scrn (Negative) Ur Amphetamine Screen (Negative) U Benzodiazepines Scrn (Negative) Urine Cocaine Screen (Negative) U Cannabinoids Screen (Negative) Ethyl Alcohol (<10) mg/dL 03/10/25 03/10/25 03/10/25 Range/Units 09:17 09:17 09:17 WBC (4.5-10.0) K/mm3 RBC (4.6-6.20) M/mm3 Hgb (14.0-18.0) g/dL Hct (42.0-52.0) % MCV (80-100) fl MCH (26-34) pg MCHC (32-36) g/dl RDW (11.5-14.5) % Plt Count (150-375) k/mm3 MPV (7.4-10.4) fl Immature Gran % (Auto) (0-0.5) % Neut % (Auto) (45.5-73.1) % Lymph % (Auto) (18.3-44.2) % Mccormick % (Auto) (2.6-8.5) % Eos % (Auto) (0-4.4) % Baso % (Auto) (0.2-1.2) % Lymph # (Auto) (0.9-3.2) K/mm3 Mccormick # (Auto) (0.1-0.6) K/mm3 Eos # (Auto) (0-0.3) K/mm3 Baso # (Auto) (0.0-0.1) K/mm3 Abs Immat Gran (auto) (0.00-0.031) K/mm3 Absolute Neuts (auto) (1.3-6.7) K/mm3 Absolute Nucleated RBC (0.0-0.012) K/mm3 Nucleated RBC % (0.0-0.2) % PT (11.1-14.7) Seconds INR APTT (22.3-36.8) Seconds Sodium Potassium Chloride Carbon Dioxide Anion Gap BUN 12 Creatinine Cancelled 0.94 Estim Creat Clear Calc Cancelled 88 Estimated GFR Cancelled Glucose Calcium Total Bilirubin AST ALT Alkaline Phosphatase Troponin I (0.000-0.034) ng/mL Total Protein Albumin Lipase Urine Color (Yellow) Urine Appearance (Clear) Urine pH (5.0-9.0) Ur Specific [place] (1.001-1.035) Urine Protein (Negative) mg/dL Urine Glucose (UA) (Negative) mg/dL Urine Ketones (Negative) mg/dL Ur Blood (Man) (Negative) Urine Nitrate (Negative) Urine Bilirubin (Negative) Urine Urobilinogen (<2.0) mg/dL Leukocyte Esterase Rfl (Negative) CARLOS MANUEL/UL Urine RBC (0-2) /hpf Urine WBC (0-3) /hpf Ur Squamous Epith Cells (Few) /hpf Urine Bacteria /hpf Urine Casts Urine Opiates Screen (Negative) Urine Methadone Screen (Negative) Ur Barbiturates Screen (Negative) Ur Phencyclidine Scrn (Negative) Ur Amphetamine Screen (Negative) U Benzodiazepines Scrn (Negative) Urine Cocaine Screen (Negative) U Cannabinoids Screen (Negative) Ethyl Alcohol (<10) mg/dL 03/10/25 03/10/25 03/10/25 Range/Units 09:17 09:17 09:17 WBC (4.5-10.0) K/mm3 RBC (4.6-6.20) M/mm3 Hgb (14.0-18.0) g/dL Hct (42.0-52.0) % MCV (80-100) fl MCH (26-34) pg MCHC (32-36) g/dl RDW (11.5-14.5) % Plt Count (150-375) k/mm3 MPV (7.4-10.4) fl Immature Gran % (Auto) (0-0.5) % Neut % (Auto) (45.5-73.1) % Lymph % (Auto) (18.3-44.2) % M[place]ick % (Auto) (2.6-8.5) % Eos % (Auto) (0-4.4) % Baso % (Auto) (0.2-1.2) % Lymph # (Auto) (0.9-3.2) K/mm3 [place]ick # (Auto) (0.1-0.6) K/mm3 Eos # (Auto) (0-0.3) K/mm3 Baso # (Auto) (0.0-0.1) K/mm3 Abs Immat Gran (auto) (0.00-0.031) K/mm3 Absolute Neuts (auto) (1.3-6.7) K/mm3 Absolute Nucleated RBC (0.0-0.012) K/mm3 Nucleated RBC % (0.0-0.2) % PT (11.1-14.7) Seconds INR APTT (22.3-36.8) Seconds Sodium Potassium Chloride Carbon Dioxide Anion Gap BUN Creatinine Estim Creat Clear Calc Estimated GFR > 60 Glucose Cancelled 81 Calcium Cancelled 9.6 Total Bilirubin Cancelled AST ALT Alkaline Phosphatase Troponin I (0.000-0.034) ng/mL Total Protein Albumin Lipase Urine Color (Yellow) Urine Appearance (Clear) Urine pH (5.0-9.0) Ur Specific [place] (1.001-1.035) Urine Protein (Negative) mg/dL Urine Glucose (UA) (Negative) mg/dL Urine Ketones (Negative) mg/dL Ur Blood (Man) (Negative) Urine Nitrate (Negative) Urine Bilirubin (Negative) Urine Urobilinogen (<2.0) mg/dL Leukocyte Esterase Rfl (Negative) CARLOS MANUEL/UL Urine RBC (0-2) /hpf Urine WBC (0-3) /hpf Ur Squamous Epith Cells (Few) /hpf Urine Bacteria /hpf Urine Casts Urine Opiates Screen (Negative) Urine Methadone Screen (Negative) Ur Barbiturates Screen (Negative) Ur Phencyclidine Scrn (Negative) Ur Amphetamine Screen (Negative) U Benzodiazepines Scrn (Negative) Urine Cocaine Screen (Negative) U Cannabinoids Screen (Negative) Ethyl Alcohol (<10) mg/dL 03/10/25 03/10/25 03/10/25 Range/Units 09:17 09:17 09:17 WBC (4.5-10.0) K/mm3 RBC (4.6-6.20) M/mm3 Hgb (14.0-18.0) g/dL Hct (42.0-52.0) % MCV (80-100) fl MCH (26-34) pg MCHC (32-36) g/dl RDW (11.5-14.5) % Plt Count (150-375) k/mm3 MPV (7.4-10.4) fl Immature Gran % (Auto) (0-0.5) % Neut % (Auto) (45.5-73.1) % Lymph % (Auto) (18.3-44.2) % Mccormick % (Auto) (2.6-8.5) % Eos % (Auto) (0-4.4) % Baso % (Auto) (0.2-1.2) % Lymph # (Auto) (0.9-3.2) K/mm3 Mccormick # (Auto) (0.1-0.6) K/mm3 Eos # (Auto) (0-0.3) K/mm3 Baso # (Auto) (0.0-0.1) K/mm3 Abs Immat Gran (auto) (0.00-0.031) K/mm3 Absolute Neuts (auto) (1.3-6.7) K/mm3 Absolute Nucleated RBC (0.0-0.012) K/mm3 Nucleated RBC % (0.0-0.2) % PT (11.1-14.7) Seconds INR APTT (22.3-36.8) Seconds Sodium Potassium Chloride Carbon Dioxide Anion Gap BUN Creatinine Estim Creat Clear Calc Estimated GFR Glucose Calcium Total Bilirubin 1.1 AST Cancelled 174 H ALT Cancelled 124 H Alkaline Phosphatase Cancelled Troponin I (0.000-0.034) ng/mL Total Protein Albumin Lipase Urine Color (Yellow) Urine Appearance (Clear) Urine pH (5.0-9.0) Ur Specific [place] (1.001-1.035) Urine Protein (Negative) mg/dL Urine Glucose (UA) (Negative) mg/dL Urine Ketones (Negative) mg/dL Ur Blood (Man) (Negative) Urine Nitrate (Negative) Urine Bilirubin (Negative) Urine Urobilinogen (<2.0) mg/dL Leukocyte Esterase Rfl (Negative) CARLOS MANUEL/UL Urine RBC (0-2) /hpf Urine WBC (0-3) /hpf Ur Squamous Epith Cells (Few) /hpf Urine Bacteria /hpf Urine Casts Urine Opiates Screen (Negative) Urine Methadone Screen (Negative) Ur Barbiturates Screen (Negative) Ur Phencyclidine Scrn (Negative) Ur Amphetamine Screen (Negative) U Benzodiazepines Scrn (Negative) Urine Cocaine Screen (Negative) U Cannabinoids Screen (Negative) Ethyl Alcohol (<10) mg/dL 03/10/25 03/10/25 03/10/25 Range/Units 09:17 09:17 09:17 WBC (4.5-10.0) K/mm3 RBC (4.6-6.20) M/mm3 Hgb (14.0-18.0) g/dL Hct (42.0-52.0) % MCV (80-100) fl MCH (26-34) pg MCHC (32-36) g/dl RDW (11.5-14.5) % Plt Count (150-375) k/mm3 MPV (7.4-10.4) fl Immature Gran % (Auto) (0-0.5) % Neut % (Auto) (45.5-73.1) % Lymph % (Auto) (18.3-44.2) % Mccormick % (Auto) (2.6-8.5) % Eos % (Auto) (0-4.4) % Baso % (Auto) (0.2-1.2) % Lymph # (Auto) (0.9-3.2) K/mm3 Mccormick # (Auto) (0.1-0.6) K/mm3 Eos # (Auto) (0-0.3) K/mm3 Baso # (Auto) (0.0-0.1) K/mm3 Abs Immat Gran (auto) (0.00-0.031) K/mm3 Absolute Neuts (auto) (1.3-6.7) K/mm3 Absolute Nucleated RBC (0.0-0.012) K/mm3 Nucleated RBC % (0.0-0.2) % PT (11.1-14.7) Seconds INR APTT (22.3-36.8) Seconds Sodium Potassium Chloride Carbon Dioxide Anion Gap BUN Creatinine Estim Creat Clear Calc Estimated GFR Glucose Calcium Total Bilirubin AST ALT Alkaline Phosphatase 117 Troponin I < 0.012 (0.000-0.034) ng/mL Total Protein Cancelled 9.9 H Albumin Cancelled 5.9 H Lipase Cancelled Urine Color (Yellow) Urine Appearance (Clear) Urine pH (5.0-9.0) Ur Specific [place] (1.001-1.035) Urine Protein (Negative) mg/dL Urine Glucose (UA) (Negative) mg/dL Urine Ketones (Negative) mg/dL Ur Blood (Man) (Negative) Urine Nitrate (Negative) Urine Bilirubin (Negative) Urine Urobilinogen (<2.0) mg/dL Leukocyte Esterase Rfl (Negative) CARLOS MANUEL/UL Urine RBC (0-2) /hpf Urine WBC (0-3) /hpf Ur Squamous Epith Cells (Few) /hpf Urine Bacteria /hpf Urine Casts Urine Opiates Screen (Negative) Urine Methadone Screen (Negative) Ur Barbiturates Screen (Negative) Ur Phencyclidine Scrn (Negative) Ur Amphetamine Screen (Negative) U Benzodiazepines Scrn (Negative) Urine Cocaine Screen (Negative) U Cannabinoids Screen (Negative) Ethyl Alcohol (<10) mg/dL 03/10/25 Range/Units 09:17 WBC (4.5-10.0) K/mm3 RBC (4.6-6.20) M/mm3 Hgb (14.0-18.0) g/dL Hct (42.0-52.0) % MCV (80-100) fl MCH (26-34) pg MCHC (32-36) g/dl RDW (11.5-14.5) % Plt Count (150-375) k/mm3 MPV (7.4-10.4) fl Immature Gran % (Auto) (0-0.5) % Neut % (Auto) (45.5-73.1) % Lymph % (Auto) (18.3-44.2) % Mccormick % (Auto) (2.6-8.5) % Eos % (Auto) (0-4.4) % Baso % (Auto) (0.2-1.2) % Lymph # (Auto) (0.9-3.2) K/mm3 Mccormick # (Auto) (0.1-0.6) K/mm3 Eos # (Auto) (0-0.3) K/mm3 Baso # (Auto) (0.0-0.1) K/mm3 Abs Immat Gran (auto) (0.00-0.031) K/mm3 Absolute Neuts (auto) (1.3-6.7) K/mm3 Absolute Nucleated RBC (0.0-0.012) K/mm3 Nucleated RBC % (0.0-0.2) % PT (11.1-14.7) Seconds INR APTT (22.3-36.8) Seconds Sodium Potassium Chloride Carbon Dioxide Anion Gap BUN Creatinine Estim Creat Clear Calc Estimated GFR Glucose Calcium Total Bilirubin AST ALT Alkaline Phosphatase Troponin I (0.000-0.034) ng/mL Total Protein Albumin Lipase 161 Urine Color Yellow (Yellow) Urine Appearance Clear (Clear) Urine pH 5.5 (5.0-9.0) Ur Specific [place] 1.020 (1.001-1.035) Urine Protein 2+ H (Negative) mg/dL Urine Glucose (UA) Negative (Negative) mg/dL Urine Ketones 4+ H (Negative) mg/dL Ur Blood (Man) Negative (Negative) Urine Nitrate Negative (Negative) Urine Bilirubin Negative (Negative) Urine Urobilinogen 1.0 (<2.0) mg/dL Leukocyte Esterase Rfl Negative (Negative) CARLOS MANUEL/UL Urine RBC 0-2 (0-2) /hpf Urine WBC 0-5 (0-3) /hpf Ur Squamous Epith Cells None seen (Few) /hpf Urine Bacteria None seen /hpf Urine Casts 0-2 Urine Opiates Screen Negative (Negative) Urine Methadone Screen Negative (Negative) Ur Barbiturates Screen Negative (Negative) Ur Phencyclidine Scrn Negative (Negative) Ur Amphetamine Screen Negative (Negative) U Benzodiazepines Scrn Negative (Negative) Urine Cocaine Screen Negative (Negative) U Cannabinoids Screen Negative (Negative) Ethyl Alcohol 202 (<10) mg/dL <Rogerio Del Rio, ENGINEERING SPECIALIST TECHNICIAN - Last Filed: 03/10/25 14:31> Lab Results 03/10/25 03/10/25 03/10/25 Range/Units 09:17 09:17 09:17 WBC 5.4 (4.5-10.0) K/mm3 RBC 4.42 L (4.6-6.20) M/mm3 Hgb 15.2 (14.0-18.0) g/dL Hct 46.4 (42.0-52.0) % MCV 105.0 H (80-100) fl MCH 34.4 H (26-34) pg MCHC 32.8 (32-36) g/dl RDW 13.5 (11.5-14.5) % Plt Count 180 (150-375) k/mm3 MPV 9.9 (7.4-10.4) fl Immature Gran % (Auto) 0.4 (0-0.5) % Neut % (Auto) 68.2 (45.5-73.1) % Lymph % (Auto) 19.4 (18.3-44.2) % Mccormick % (Auto) 8.6 H (2.6-8.5) % Eos % (Auto) 2.8 (0-4.4) % Baso % (Auto) 0.6 (0.2-1.2) % Lymph # (Auto) 1.04 (0.9-3.2) K/mm3 Mccormick # (Auto) 0.5 (0.1-0.6) K/mm3 Eos # (Auto) 0.2 (0-0.3) K/mm3 Baso # (Auto) 0.0 (0.0-0.1) K/mm3 Abs Immat Gran (auto) 0.02 (0.00-0.031) K/mm3 Absolute Neuts (auto) 3.7 (1.3-6.7) K/mm3 Absolute Nucleated RBC 0.000 (0.0-0.012) K/mm3 Nucleated RBC % 0.0 (0.0-0.2) % PT 13.7 (11.1-14.7) Seconds INR 1.1 APTT 23.7 (22.3-36.8) Seconds Sodium Cancelled 137 Potassium Cancelled 5.0 Chloride Cancelled Carbon Dioxide Anion Gap BUN Creatinine Estim Creat Clear Calc Estimated GFR Glucose Calcium Total Bilirubin AST ALT Alkaline Phosphatase Troponin I (0.000-0.034) ng/mL Total Protein Albumin Lipase Urine Color (Yellow) Urine Appearance (Clear) Urine pH (5.0-9.0) Ur Specific [place] (1.001-1.035) Urine Protein (Negative) mg/dL Urine Glucose (UA) (Negative) mg/dL Urine Ketones (Negative) mg/dL Ur Blood (Man) (Negative) Urine Nitrate (Negative) Urine Bilirubin (Negative) Urine Urobilinogen (<2.0) mg/dL Leukocyte Esterase Rfl (Negative) CARLOS MANUEL/UL Urine RBC (0-2) /hpf Urine WBC (0-3) /hpf Ur Squamous Epith Cells (Few) /hpf Urine Bacteria /hpf Urine Casts Urine Opiates Screen (Negative) Urine Methadone Screen (Negative) Ur Barbiturates Screen (Negative) Ur Phencyclidine Scrn (Negative) Ur Amphetamine Screen (Negative) U Benzodiazepines Scrn (Negative) Urine Cocaine Screen (Negative) U Cannabinoids Screen (Negative) Ethyl Alcohol (<10) mg/dL 03/10/25 03/10/25 03/10/25 Range/Units 09:17 09:17 09:17 WBC (4.5-10.0) K/mm3 RBC (4.6-6.20) M/mm3 Hgb (14.0-18.0) g/dL Hct (42.0-52.0) % MCV (80-100) fl MCH (26-34) pg MCHC (32-36) g/dl RDW (11.5-14.5) % Plt Count (150-375) k/mm3 MPV (7.4-10.4) fl Immature Gran % (Auto) (0-0.5) % Neut % (Auto) (45.5-73.1) % Lymph % (Auto) (18.3-44.2) % Mccormick % (Auto) (2.6-8.5) % Eos % (Auto) (0-4.4) % Baso % (Auto) (0.2-1.2) % Lymph # (Auto) (0.9-3.2) K/mm3 Mccormick # (Auto) (0.1-0.6) K/mm3 Eos # (Auto) (0-0.3) K/mm3 Baso # (Auto) (0.0-0.1) K/mm3 Abs Immat Gran (auto) (0.00-0.031) K/mm3 Absolute Neuts (auto) (1.3-6.7) K/mm3 Absolute Nucleated RBC (0.0-0.012) K/mm3 Nucleated RBC % (0.0-0.2) % PT (11.1-14.7) Seconds INR APTT (22.3-36.8) Seconds Sodium Potassium Chloride 97 L Carbon Dioxide Cancelled < 5 L Anion Gap Cancelled BUN Cancelled Creatinine Estim Creat Clear Calc Estimated GFR Glucose Calcium Total Bilirubin AST ALT Alkaline Phosphatase Troponin I (0.000-0.034) ng/mL Total Protein Albumin Lipase Urine Color (Yellow) Urine Appearance (Clear) Urine pH (5.0-9.0) Ur Specific [place] (1.001-1.035) Urine Protein (Negative) mg/dL Urine Glucose (UA) (Negative) mg/dL Urine Ketones (Negative) mg/dL Ur Blood (Man) (Negative) Urine Nitrate (Negative) Urine Bilirubin (Negative) Urine Urobilinogen (<2.0) mg/dL Leukocyte Esterase Rfl (Negative) CARLOS MANUEL/UL Urine RBC (0-2) /hpf Urine WBC (0-3) /hpf Ur Squamous Epith Cells (Few) /hpf Urine Bacteria /hpf Urine Casts Urine Opiates Screen (Negative) Urine Methadone Screen (Negative) Ur Barbiturates Screen (Negative) Ur Phencyclidine Scrn (Negative) Ur Amphetamine Screen (Negative) U Benzodiazepines Scrn (Negative) Urine Cocaine Screen (Negative) U Cannabinoids Screen (Negative) Ethyl Alcohol (<10) mg/dL 03/10/25 03/10/25 03/10/25 Range/Units 09:17 09:17 09:17 WBC (4.5-10.0) K/mm3 RBC (4.6-6.20) M/mm3 Hgb (14.0-18.0) g/dL Hct (42.0-52.0) % MCV (80-100) fl MCH (26-34) pg MCHC (32-36) g/dl RDW (11.5-14.5) % Plt Count (150-375) k/mm3 MPV (7.4-10.4) fl Immature Gran % (Auto) (0-0.5) % Neut % (Auto) (45.5-73.1) % Lymph % (Auto) (18.3-44.2) % Mccormick % (Auto) (2.6-8.5) % Eos % (Auto) (0-4.4) % Baso % (Auto) (0.2-1.2) % Lymph # (Auto) (0.9-3.2) K/mm3 Mccormick # (Auto) (0.1-0.6) K/mm3 Eos # (Auto) (0-0.3) K/mm3 Baso # (Auto) (0.0-0.1) K/mm3 Abs Immat Gran (auto) (0.00-0.031) K/mm3 Absolute Neuts (auto) (1.3-6.7) K/mm3 Absolute Nucleated RBC (0.0-0.012) K/mm3 Nucleated RBC % (0.0-0.2) % PT (11.1-14.7) Seconds INR APTT (22.3-36.8) Seconds Sodium Potassium Chloride Carbon Dioxide Anion Gap BUN 12 Creatinine Cancelled 0.94 Estim Creat Clear Calc Cancelled 88 Estimated GFR Cancelled Glucose Calcium Total Bilirubin AST ALT Alkaline Phosphatase Troponin I (0.000-0.034) ng/mL Total Protein Albumin Lipase Urine Color (Yellow) Urine Appearance (Clear) Urine pH (5.0-9.0) Ur Specific [place] (1.001-1.035) Urine Protein (Negative) mg/dL Urine Glucose (UA) (Negative) mg/dL Urine Ketones (Negative) mg/dL Ur Blood (Man) (Negative) Urine Nitrate (Negative) Urine Bilirubin (Negative) Urine Urobilinogen (<2.0) mg/dL Leukocyte Esterase Rfl (Negative) CARLOS MANUEL/UL Urine RBC (0-2) /hpf Urine WBC (0-3) /hpf Ur Squamous Epith Cells (Few) /hpf Urine Bacteria /hpf Urine Casts Urine Opiates Screen (Negative) Urine Methadone Screen (Negative) Ur Barbiturates Screen (Negative) Ur Phencyclidine Scrn (Negative) Ur Amphetamine Screen (Negative) U Benzodiazepines Scrn (Negative) Urine Cocaine Screen (Negative) U Cannabinoids Screen (Negative) Ethyl Alcohol (<10) mg/dL 03/10/25 03/10/25 03/10/25 Range/Units 09:17 09:17 09:17 WBC (4.5-10.0) K/mm3 RBC (4.6-6.20) M/mm3 Hgb (14.0-18.0) g/dL Hct (42.0-52.0) % MCV (80-100) fl MCH (26-34) pg MCHC (32-36) g/dl RDW (11.5-14.5) % Plt Count (150-375) k/mm3 MPV (7.4-10.4) fl Immature Gran % (Auto) (0-0.5) % Neut % (Auto) (45.5-73.1) % Lymph % (Auto) (18.3-44.2) % Mccormick % (Auto) (2.6-8.5) % Eos % (Auto) (0-4.4) % Baso % (Auto) (0.2-1.2) % Lymph # (Auto) (0.9-3.2) K/mm3 Mccormick # (Auto) (0.1-0.6) K/mm3 Eos # (Auto) (0-0.3) K/mm3 Baso # (Auto) (0.0-0.1) K/mm3 Abs Immat Gran (auto) (0.00-0.031) K/mm3 Absolute Neuts (auto) (1.3-6.7) K/mm3 Absolute Nucleated RBC (0.0-0.012) K/mm3 Nucleated RBC % (0.0-0.2) % PT (11.1-14.7) Seconds INR APTT (22.3-36.8) Seconds Sodium Potassium Chloride Carbon Dioxide Anion Gap BUN Creatinine Estim Creat Clear Calc Estimated GFR > 60 Glucose Cancelled 81 Calcium Cancelled 9.6 Total Bilirubin Cancelled AST ALT Alkaline Phosphatase Troponin I (0.000-0.034) ng/mL Total Protein Albumin Lipase Urine Color (Yellow) Urine Appearance (Clear) Urine pH (5.0-9.0) Ur Specific [place] (1.001-1.035) Urine Protein (Negative) mg/dL Urine Glucose (UA) (Negative) mg/dL Urine Ketones (Negative) mg/dL Ur Blood (Man) (Negative) Urine Nitrate (Negative) Urine Bilirubin (Negative) Urine Urobilinogen (<2.0) mg/dL Leukocyte Esterase Rfl (Negative) CARLOS MANUEL/UL Urine RBC (0-2) /hpf Urine WBC (0-3) /hpf Ur Squamous Epith Cells (Few) /hpf Urine Bacteria /hpf Urine Casts Urine Opiates Screen (Negative) Urine Methadone Screen (Negative) Ur Barbiturates Screen (Negative) Ur Phencyclidine Scrn (Negative) Ur Amphetamine Screen (Negative) U Benzodiazepines Scrn (Negative) Urine Cocaine Screen (Negative) U Cannabinoids Screen (Negative) Ethyl Alcohol (<10) mg/dL 03/10/25 03/10/25 03/10/25 Range/Units 09:17 09:17 09:17 WBC (4.5-10.0) K/mm3 RBC (4.6-6.20) M/mm3 Hgb (14.0-18.0) g/dL Hct (42.0-52.0) % MCV (80-100) fl MCH (26-34) pg MCHC (32-36) g/dl RDW (11.5-14.5) % Plt Count (150-375) k/mm3 MPV (7.4-10.4) fl Immature Gran % (Auto) (0-0.5) % Neut % (Auto) (45.5-73.1) % Lymph % (Auto) (18.3-44.2) % Mccormick % (Auto) (2.6-8.5) % Eos % (Auto) (0-4.4) % Baso % (Auto) (0.2-1.2) % Lymph # (Auto) (0.9-3.2) K/mm3 M[place]ormick # (Auto) (0.1-0.6) K/mm3 Eos # (Auto) (0-0.3) K/mm3 Baso # (Auto) (0.0-0.1) K/mm3 Abs Immat Gran (auto) (0.00-0.031) K/mm3 Absolute Neuts (auto) (1.3-6.7) K/mm3 Absolute Nucleated RBC (0.0-0.012) K/mm3 Nucleated RBC % (0.0-0.2) % PT (11.1-14.7) Seconds INR APTT (22.3-36.8) Seconds Sodium Potassium Chloride Carbon Dioxide Anion Gap BUN Creatinine Estim Creat Clear Calc Estimated GFR Glucose Calcium Total Bilirubin 1.1 AST Cancelled 174 H ALT Cancelled 124 H Alkaline Phosphatase Cancelled Troponin I (0.000-0.034) ng/mL Total Protein Albumin Lipase Urine Color (Yellow) Urine Appearance (Clear) Urine pH (5.0-9.0) Ur Specific [place] (1.001-1.035) Urine Protein (Negative) mg/dL Urine Glucose (UA) (Negative) mg/dL Urine Ketones (Negative) mg/dL Ur Blood (Man) (Negative) Urine Nitrate (Negative) Urine Bilirubin (Negative) Urine Urobilinogen (<2.0) mg/dL Leukocyte Esterase Rfl (Negative) CARLOS MANUEL/UL Urine RBC (0-2) /hpf Urine WBC (0-3) /hpf Ur Squamous Epith Cells (Few) /hpf Urine Bacteria /hpf Urine Casts Urine Opiates Screen (Negative) Urine Methadone Screen (Negative) Ur Barbiturates Screen (Negative) Ur Phencyclidine Scrn (Negative) Ur Amphetamine Screen (Negative) U Benzodiazepines Scrn (Negative) Urine Cocaine Screen (Negative) U Cannabinoids Screen (Negative) Ethyl Alcohol (<10) mg/dL 03/10/25 03/10/25 03/10/25 Range/Units 09:17 09:17 09:17 WBC (4.5-10.0) K/mm3 RBC (4.6-6.20) M/mm3 Hgb (14.0-18.0) g/dL Hct (42.0-52.0) % MCV (80-100) fl MCH (26-34) pg MCHC (32-36) g/dl RDW (11.5-14.5) % Plt Count (150-375) k/mm3 MPV (7.4-10.4) fl Immature Gran % (Auto) (0-0.5) % Neut % (Auto) (45.5-73.1) % Lymph % (Auto) (18.3-44.2) % Mccormick % (Auto) (2.6-8.5) % Eos % (Auto) (0-4.4) % Baso % (Auto) (0.2-1.2) % Lymph # (Auto) (0.9-3.2) K/mm3 M[place]ormick # (Auto) (0.1-0.6) K/mm3 Eos # (Auto) (0-0.3) K/mm3 Baso # (Auto) (0.0-0.1) K/mm3 Abs Immat Gran (auto) (0.00-0.031) K/mm3 Absolute Neuts (auto) (1.3-6.7) K/mm3 Absolute Nucleated RBC (0.0-0.012) K/mm3 Nucleated RBC % (0.0-0.2) % PT (11.1-14.7) Seconds INR APTT (22.3-36.8) Seconds Sodium Potassium Chloride Carbon Dioxide Anion Gap BUN Creatinine Estim Creat Clear Calc Estimated GFR Glucose Calcium Total Bilirubin AST ALT Alkaline Phosphatase 117 Troponin I < 0.012 (0.000-0.034) ng/mL Total Protein Cancelled 9.9 H Albumin Cancelled 5.9 H Lipase Cancelled Urine Color (Yellow) Urine Appearance (Clear) Urine pH (5.0-9.0) Ur Specific [place] (1.001-1.035) Urine Protein (Negative) mg/dL Urine Glucose (UA) (Negative) mg/dL Urine Ketones (Negative) mg/dL Ur Blood (Man) (Negative) Urine Nitrate (Negative) Urine Bilirubin (Negative) Urine Urobilinogen (<2.0) mg/dL Leukocyte Esterase Rfl (Negative) CARLOS MANUEL/UL Urine RBC (0-2) /hpf Urine WBC (0-3) /hpf Ur Squamous Epith Cells (Few) /hpf Urine Bacteria /hpf Urine Casts Urine Opiates Screen (Negative) Urine Methadone Screen (Negative) Ur Barbiturates Screen (Negative) Ur Phencyclidine Scrn (Negative) Ur Amphetamine Screen (Negative) U Benzodiazepines Scrn (Negative) Urine Cocaine Screen (Negative) U Cannabinoids Screen (Negative) Ethyl Alcohol (<10) mg/dL 03/10/25 Range/Units 09:17 WBC (4.5-10.0) K/mm3 RBC (4.6-6.20) M/mm3 Hgb (14.0-18.0) g/dL Hct (42.0-52.0) % MCV (80-100) fl MCH (26-34) pg MCHC (32-36) g/dl RDW (11.5-14.5) % Plt Count (150-375) k/mm3 MPV (7.4-10.4) fl Immature Gran % (Auto) (0-0.5) % Neut % (Auto) (45.5-73.1) % Lymph % (Auto) (18.3-44.2) % Mccormick % (Auto) (2.6-8.5) % Eos % (Auto) (0-4.4) % Baso % (Auto) (0.2-1.2) % Lymph # (Auto) (0.9-3.2) K/mm3 M[place]ormick # (Auto) (0.1-0.6) K/mm3 Eos # (Auto) (0-0.3) K/mm3 Baso # (Auto) (0.0-0.1) K/mm3 Abs Immat Gran (auto) (0.00-0.031) K/mm3 Absolute Neuts (auto) (1.3-6.7) K/mm3 Absolute Nucleated RBC (0.0-0.012) K/mm3 Nucleated RBC % (0.0-0.2) % PT (11.1-14.7) Seconds INR APTT (22.3-36.8) Seconds Sodium Potassium Chloride Carbon Dioxide Anion Gap BUN Creatinine Estim Creat Clear Calc Estimated GFR Glucose Calcium Total Bilirubin AST ALT Alkaline Phosphatase Troponin I (0.000-0.034) ng/mL Total Protein Albumin Lipase 161 Urine Color Yellow (Yellow) Urine Appearance Clear (Clear) Urine pH 5.5 (5.0-9.0) Ur Specific [place] 1.020 (1.001-1.035) Urine Protein 2+ H (Negative) mg/dL Urine Glucose (UA) Negative (Negative) mg/dL Urine Ketones 4+ H (Negative) mg/dL Ur Blood (Man) Negative (Negative) Urine Nitrate Negative (Negative) Urine Bilirubin Negative (Negative) Urine Urobilinogen 1.0 (<2.0) mg/dL Leukocyte Esterase Rfl Negative (Negative) CARLOS MANUEL/UL Urine RBC 0-2 (0-2) /hpf Urine WBC 0-5 (0-3) /hpf Ur Squamous Epith Cells None seen (Few) /hpf Urine Bacteria None seen /hpf Urine Casts 0-2 Urine Opiates Screen Negative (Negative) Urine Methadone Screen Negative (Negative) Ur Barbiturates Screen Negative (Negative) Ur Phencyclidine Scrn Negative (Negative) Ur Amphetamine Screen Negative (Negative) U Benzodiazepines Scrn Negative (Negative) Urine Cocaine Screen Negative (Negative) U Cannabinoids Screen Negative (Negative) Ethyl Alcohol 202 (<10) mg/dL <Ellis Allred MD - Last Filed: 03/10/25 18:07> Imaging Data Radiologist's impression: ITS Impressions Chest X-Ray 03/10/25 09:32 IMPRESSION: 1. No acute cardiopulmonary disease. <Rogerio Del Rio APRN - Last Filed: 03/10/25 14:31> ITS Impressions Chest X-Ray 03/10/25 09:32 IMPRESSION: 1. No acute cardiopulmonary disease. <Ellis Allred MD - Last Filed: 03/10/25 18:07> Discharge Plan Discharge Clinical Impression: Alcohol abuse Alcohol withdrawal syndrome Qualifiers: Complication of substance-induced condition: with unspecified complication Q ualified Code(s): F10.939 - Alcohol use, unspecified with withdrawal, unspecified <Rogerio Del Rio APRN - Last Filed: 03/10/25 14:31> Patient Disposition: Still a Patient <Rogerio Del Rio APRN - Last Filed: 03/10/25 14:31> Condition: Stable <Rogerio Del Rio APRN - Last Filed: 03/10/25 14:31> Time of Disposition: 13:12 <Rogerio Del Rio APRN - Last Filed: 03/10/25 14:31> 13:12 <Ellis Allred MD - Last Filed: 03/10/25 18:07> Quality NIHSS Nursing Documentation ED NIHSS nursing documentation: reviewed/agree <Rogerio Del Rio APRN - Last Filed: 03/10/25 14:31>
--- NOTE | 2025-03-10 08:54 | ECG_ITS ---
Test Date: 2025-03-10 09:02:28 Measurements Intervals [place] Rate: 117 P: 0 AK: 0 QRS: -13 QRSD: 102 T: 46 QT: 322 QTc: 450 Interpretive Statements SINUS TACHYCARDIA INDETERMINATE AXIS INCOMPLETE RIGHT BUNDLE BRANCH BLOCK [90+ ms QRS DURATION, TERMINAL R IN V1/V2, 40+ ms S IN I/aVL/V4/V5/V6] ABNORMAL ECG Electronically Signed On 03-10-2025 13:03:14 CDT by Mo Cruz M.D.
[2025-03-10 09:26] LABS: Hematocrit 46.4 % (42.0-52.0); Hemoglobin 15.2 g/dL (14.0-18.0); Immature Granulocyte Percent A 0.4 % (0-0.5); Lymphocytes Absolute Auto 1.04 K/mm3 (0.9-3.2); Mean Corpuscular HGB Conc 32.8 g/dl (32-36); Mean Corpuscular Hemoglobin 34.4 pg (26-34); Mean Corpuscular Volume 105.0 fl (80-100); Nucleated Red Blood Cells Absolute Auto 0.000 K/mm3 (0.0-0.012); Nucleated Red Blood Cells Perc 0.0 % (0.0-0.2); Platelet Count Result 180 k/mm3 (150-375); Red Blood Count 4.42 M/mm3 (4.6-6.20); White Blood Count 5.4 K/mm3 (4.5-10.0)
[2025-03-10 09:33] LABS: Add Urine Microscopic? YES; Appearance Urine Clear (Clear); Glucose Urine UA Negative (Negative); Leukocyte Esterase Ur Negative LEU/UL (Negative); Nitrate Urine Negative (Negative); Non Pathogenic Casts 0-2; Specific Grav Ur 1.020 (1.001-1.035)
[2025-03-10 09:36] LABS: INR 1.1; Prothrombin Time 13.7 Seconds (11.1-14.7)
[2025-03-10 09:37] LABS: Partial Thromboplastin Time 23.7 Seconds (22.3-36.8)
[2025-03-10 09:40] LABS: Alanine Aminotransferase 124 U/L (6-50); Albumin Level 5.9 g/dL (3.5-5.1); Alkaline Phosphatase 117 U/L (38-126); Aspartate Amino Transferase 174 U/L (17-59); Bilirubin,Total 1.1 mg/dL (0.2-1.3); Blood Urea Nitrogen 12 mg/dL (9-20); Calcium 9.6 mg/dL (8.4-10.2); Carbon Dioxide < 5 mmol/L (22-30); Chloride 97 mmol/L (98-107); Estimated CRCL calculation 88 ml/min; Estimated Glomerular Filt Rate > 60; Glucose 81 mg/dL (65-110); Lipase 161 U/L (23-300); Potassium 5.0 mmol/L (3.4-5.0); Sodium 137 mmol/L (137-145); Total Protein 9.9 g/dL (6.3-8.2)
[2025-03-10] MEDS: SODIUM CHLORIDE 0.9% IV 1,000 ML 999 ML IV CONT ×2 (09:40→11:45)
[2025-03-10] MEDS: MIDAZOLAM HCL (*CRX) 2 MG/2 ML VIAL IV PUSH (09:40)
[2025-03-10 09:49] LABS: Cannabinoid Screen Urine Negative (Negative)
[2025-03-10 09:50] LABS: Troponin I < 0.012 ng/mL (0.000-0.034)
[2025-03-10] MEDS: THIAMINE HCL INJ 100 MG, FOLIC ACID INJ 1 MG, MAGNESIUM SULFATE INJ 1 GM, MULTIVITAMINS... 125 MG IV CONT (10:22)
[2025-03-10] MEDS: ONDANSETRON INJ 4 MG/2 ML VIAL IV PUSH (11:57)
[2025-03-10] MEDS: diazePAM INJ (*CRX) 10 MG/2 ML SYRINGE 5 MG IV PUSH ×2 (11:57→14:51)
--- NOTE | 2025-03-10 12:06 | PC.NURSE ---
BG checked by RN. 63. Patient given apple juice and contacted SWEATER OPERATOR about lunch tray. RN ordering lunch tray now.
--- NOTE | 2025-03-10 12:33 | P.HP_ITS ---
H&P: HPI History of Present Illness Date/Time: 03/10/25 12:33 Chief Complaint: alcohol withdrawal Narrative: 39-year-old male patient has past medical history of depression, alcoholism and anxiety use presents the hospital with alcohol withdrawals. He states that he drinks vodka , he states that his last rate was 6-7 hours ago. Patient complains of chest pain, nausea, vomiting and numbness to his feet. CIWA score in the ED was 26. Patient states that he is willing to go to rehab. He has done rehab several times. Patient states the medications are helping somewhat with his withdrawals however he is still diaphoretic and tachycardic. Denies nausea or vomiting. Lab work in the ED shows chloride of 97, carbon dioxide less than 5, AST 174 ALT 124, 1st troponin negative, UA negative for infection, tox screen negative, ethanol level to 202. Chest x-ray with no acute findings. EKG with atrial flutter at 117. Review of Systems Review of Systems: 12 systems were reviewed and are negativ e except for as per HPI. [facility] Past Medical History Medical History Depression BMI 20.0-20.9, adult Alcoholism Anxiety Surgical History Surgical History History of repair of right rotator cuff Family History Family History Father Hypertension Mother Dupuytrens contracture Breast cancer Sibling Hypertension Grandparent Depression Grandparent Anxiety Social History Social History Social History: Surrogate medical decision maker: Eulalio Mohan, spouse. Code status: Full code. Years smoked: 15 Smoking status: Never smoker Tobacco type: e-cigarettes/vaping Second hand tobacco smoke exposure: No Alcohol intake: current Drinks per week: 70 Alcohol use details: Longstanding history of alcohol abuse. Began drinking again 11/20/2024, half of a 5th a day. Substance use: never Substance use type: does not use Do You Feel Safe in your Home?: Yes Lack of Transportation: No Lack of Food: Never True Current Housing: I Have Housing Concerned About Future Housing: No Difficulty Paying Gas/Electric Bills: No Difficulty Paying for Meds: No Currently Unemployed: No Education: Bachelor's Degree Difficulty w/ Childcare or Family Care: No Spiritual care concerns: No Meds Home Medications and Allergies Home Medications ?Medication ?Instructions ?Recorded ?Confirmed ?Type clonazepam 0.5 mg tablet 0.5 mg PO Q12H PRN anxiety 0 10/24/21 03/10/25 History Allergies Allergy/AdvReac Type Severity Reaction Status Date / Time No Known Allergies Allergy Verified 01/25/25 15:48 Vital Signs Vital Signs - 24 hr 03/10/25 08:55 03/10/25 09:26 03/10/25 09:27 Pulse Rate 117 H 118 H 117 H Respiratory Rate 17 16 20 Blood Pressure 136/90 140/97 H Pulse Oximetry 98 100 Oxygen Delivery Room Air 03/10/25 10:02 03/10/25 10:15 03/10/25 10:16 Pulse Rate 110 H 109 H 109 H Respiratory Rate 17 17 17 Blood Pressure 140/99 H Pulse Oximetry 100 100 100 Oxygen Delivery 03/10/25 10:30 03/10/25 10:31 03/10/25 10:45 Pulse Rate 106 H 118 H 108 H Respiratory Rate 15 13 21 H Blood Pressure 150/91 H Pulse Oximetry 100 100 98 Oxygen Delivery 03/10/25 10:46 03/10/25 11:08 03/10/25 11:15 Pulse Rate 108 H 107 H 108 H Respiratory Rate 20 18 20 Blood Pressure 130/82 Pulse Oximetry 98 100 100 Oxygen Delivery 03/10/25 11:16 03/10/25 11:17 03/10/25 11:30 Pulse Rate 119 H 114 H 107 H Respiratory Rate 20 15 19 Blood Pressure 128/82 Pulse Oximetry 100 100 100 Oxygen Delivery 03/10/25 11:31 03/10/25 11:52 03/10/25 12:07 Pulse Rate 108 H 114 H 116 H Respiratory Rate 18 12 15 Blood Pressure 128/84 Pulse Oximetry 100 100 Oxygen Delivery 03/10/25 12:15 03/10/25 12:16 Pulse Rate 100 105 H Respiratory Rate 19 17 Blood Pressure 137/96 H Pulse Oximetry 100 100 Oxygen Delivery Exam Narrative: General: well appearing, appears stated age. HEENT: normocephalic, atraumatic. Mucous membranes moist. EOMI, PERRLA, bilateral sclera anicteric, no conjunctival injection. Neck supple without JVD, lymphadenopathy, or bruit. Respiratory: clear to ascultation bilaterally. No rales/rhonic/wheezes. Cardiovascular: Regular rate and rhythm, normal S1-S2 upon ascultation. No murmurs, rubs, or clicks. PMI is nondisplaced, capillary refill less than 3 second. Abdomen: Soft, round, no pulsatile masses, nondistended and nontender. No rebound, no guarding. No CVA tenderness, no hepatosplenomegaly. Bowel sounds present to all four quadrants. No high pitch or tinkling sounds, resonant to percussion. Extremities: No cyanosis, clubbing, or edema present. Pulses are palpable 2/2. Active ROM to all four extremities. Neuro: Alert and orientated x 4. PERRLA. Cranial nerves 2-12 intact without focal deficit. Skin: Warm, dry, and intact, without rash, erythema, or lesion. Psych: pleasant, cooperative, normal speech, normal affect, no hallucinations, no dysarthia H&P: Results Labs Labs: Short CBC 03/10/25 Range/Units 09:17 WBC 5.4 (4.5-10.0) K/mm3 Hgb 15.2 (14.0-18.0) g/dL Hct 46.4 (42.0-52.0) % Plt Count 180 (150-375) k/mm3 BMP 03/10/25 03/10/25 03/10/25 09:17 09:17 09:17 Sodium Cancelled 137 Potassium Cancelled 5.0 Chloride Cancelled Carbon Dioxide BUN Creatinine Glucose Calcium 03/10/25 03/10/25 03/10/25 09:17 09:17 09:17 Sodium Potassium Chloride 97 L Carbon Dioxide Cancelled < 5 L BUN Cancelled 12 Creatinine Cancelled Glucose Calcium 03/10/25 03/10/25 03/10/25 09:17 09:17 09:17 Sodium Potassium Chloride Carbon Dioxide BUN Creatinine 0.94 Glucose Cancelled 81 Calcium Cancelled 9.6 Cardiac Enzymes 03/10/25 Range/Units 09:17 Troponin I < 0.012 (0.000-0.034) ng/mL Liver Function 03/10/25 03/10/25 03/10/25 Range/Units 09:17 09:17 09:17 Total Bilirubin Cancelled 1.1 AST Cancelled 174 H ALT Cancelled Alkaline Phosphatase Albumin 03/10/25 03/10/25 03/10/25 Range/Units 09:17 09:17 09:17 Total Bilirubin AST ALT 124 H Alkaline Phosphatase Cancelled 117 Albumin Cancelled 5.9 H Urine 03/10/25 Range/Units 09:17 Urine Color Yellow (Yellow) Urine Appearance Clear (Clear) Urine pH 5.5 (5.0-9.0) Ur Specific [place] 1.020 (1.001-1.035) Urine Protein 2+ H (Negative) mg/dL Urine Glucose (UA) Negative (Negative) mg/dL Assessment and Plan Assessment and plan (1) Alcohol withdrawal syndrome: Qualifiers: Complication of substance-induced condition: with unspecified complication Qualified Code(s): F10.939 - Alcohol use, unspecified with withdrawal, unspecified Code(s): F10.939 - Alcohol use, unspecified with withdrawal, unspecified Status: Acute Assessment and Plan: Banana bag Valium p.r.n. Schedule Librium Telemetry monitoring Thiamine, multivitamin folic acid p.o. starting tomorrow (2) Alcohol abuse: Code(s): F10.10 - Alcohol abuse, uncomplicated Status: Acute Assessment and Plan: Patient was actively going through withdrawals with his ethanol level at 202 Case management consulted (3) Elevated liver function tests: Code(s): R79.89 - Other specified abnormal findings of blood chemistry Status: Acute Assessment and Plan: Likely related to excessive alcohol use CMP in the a.m. (4) Anxiety: Code(s): F41.9 - Anxiety disorder, unspecified Status: Acute Assessment and Plan: Continue home med (5) Atrial flutter: Code(s): I48.92 - Unspecified atrial flutter Status: Acute Assessment and Plan: Likely related to severe alcohol withdrawals Will treat underlying cause resident care technician Quality VTE Prophylaxis VTE prophylaxis: mechanical ordered and pharmacologic ordered Hospitalist MIPS Advance Care Plan I have confirmed that the patient's Advanced Care Plan is present, code status is documented, or surrogate decision maker is listed in patient medical record.: Yes Medication Reconciliation I have utilized all available resources to obtain, update and review the patients current medications (includes all prescriptions, OTC, herbals, cannabis, and nutritional supplements).: Yes
--- NOTE | 2025-03-10 12:47 | ECG_ITS ---
Test Date: 2025-03-10 13:05:03 Measurements Intervals [place] Rate: 112 P: 63 [place]: 163 QRS: 21 QRSD: 100 T: 48 QT: 334 QTc: 457 Interpretive Statements SINUS TACHYCARDIA POSSIBLE LEFT ATRIAL ENLARGEMENT [-0.1mV P-WAVE IN V1/V2] INDETERMINATE AXIS INCOMPLETE RIGHT BUNDLE BRANCH BLOCK [90+ ms QRS DURATION, TERMINAL R IN V1/V2, 40+ ms S IN I/aVL/V4/V5/V6] ABNORMAL RHYTHM ECG Compared to ECG 03/10/2025 09:02:28 No significant changes Electronically Signed On 03-11-2025 08:26:07 CDT by Karsten Rodriguez M.D.
[2025-03-10 13:28] LABS: Troponin I < 0.012 ng/mL (0.000-0.034)
--- OUTSIDE RECORDS SUMMARY | 2025-03-10 14:37 | XMS_ITS | Clinical Summary ---
Author Organization [facility] Address [address] [place] [address] Phone Care Team Providers Care Superintendent [employer] Operations Name Role Phone Unavailable Primary Care Provider [...] on file Legal Sex Male 11:03 AM ORIGINATION SPECIALIST Gender Identity Not on file Sexual Orientation Not on file Last Filed Vital Signs Vital Sign Reading Time Taken Comments Blood Pressure 130/76 05/21/2014 11:24 AM ORIGINATION SPECIALIST Pulse - - Temperature 36.9 C (98.5 F) 05/21/2014 11:24 AM ORIGINATION SPECIALIST Respiratory Rate 18 05/21/2014 11:24 AM ORIGINATION SPECIALIST Oxygen Saturation 100% 05/21/2014 11:24 AM ORIGINATION SPECIALIST Inhaled Oxygen Concentration - - Weight 65.8 kg (145 lb) 05/21/2014 11:24 AM ORIGINATION SPECIALIST Height 177.8 cm (5' 10) 05/21/2014 11:24 AM ORIGINATION SPECIALIST Body Mass Index 20.81 05/21/2014 11:24 AM ORIGINATION SPECIALIST Plan of Treatment Health Maintenance Due Date Last Done Comments DTAP/TDAP/TD VACCINES (1 - Tdap) 2004 HEPATITIS B VACCINES (1 of 3 - 19+ 3-dose series) 02/2005 HPV VACCINES (1 - 3-dose SCDM series) 2012 INFLUENZA VACCINE (#1) 2025 Insurance [facility] [employer] PPO [id number]
--- OUTSIDE RECORDS SUMMARY | 2025-03-10 14:37 | XMS_ITS | Clinical Summary ---
Author Organization [facility] Address [address] [place] [id number] Care Team Providers Care Application Infrastructure Engineer Name Role Phone Cristofer Gentile MD Primary Care Provider [phone] Allergies No known active allergies Medications traZODone [...] 05/30/2020 Assessment & Plan (05/30/2020 3:55 PM TELEVISION ANTENNA INSTALLER): Recently finished inpatient [place] on 04/26/20. He has been doing well since discharge. He is actively seeing a therapist and aftercare program. I recommend that he establish with a psychiatrist for medical management. ED (erectile dysfunction) of organic origin 02/2020 Assessment & Plan (05/30/2020 3:48 PM TELEVISION ANTENNA INSTALLER): New. We discussed options. Trial of A[place] MAKENZIE Raynaud disease 05/30/2020 Assessment & Plan (05/30/2020 3:54 PM TELEVISION ANTENNA INSTALLER): Intermittent. Aggravated by cold. Advised to keep hands warm. SUSAN (generalized anxiety disorder) 08/11/2019 Assessment & Plan (05/30/2020 3:49 PM TELEVISION ANTENNA INSTALLER): SUSAN is controlled. Continue current treatment regimen. Regular aerobic exercise. Psychological condition will be reassessed at the next regular appointment. Actively seeing a counsellor. Assessment & Plan (08/11/2019 10:35 AM TELEVISION ANTENNA INSTALLER): SUSAN is newly identified. Regular aerobic exercise. Referral to psychological counseling. Begin SSRI Psychological condition will be reassessed in 3 months. Panic disorder 08/11/2019 Assessment & Plan (08/11/2019 10:35 AM TELEVISION ANTENNA INSTALLER): Panic is newly identified. Regular aerobic exercise. Referral to psychological counseling. Begin SSRI Psychological condition will be reassessed in 3 months. Prehypertension 02/08/2019 Assessment & Plan (05/30/2020 3:50 PM TELEVISION ANTENNA INSTALLER): PreHypertension is improving with lifestyle modifications Continue [...] for 40 seconds each. Aftercare instructions given. 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 Not on file Not on file Obstetrics History Last Filed Vital Signs Vital Sign Reading Time Taken Comments Blood Pressure 110/62 05/30/2020 3:39 PM TELEVISION ANTENNA INSTALLER Pulse 110 05/30/2020 3:39 PM TELEVISION ANTENNA INSTALLER Temperature 36.8 C (98.2 F) 05/30/2020 3:39 PM TELEVISION ANTENNA INSTALLER Respiratory Rate 16 08/11/2019 10:2 3 AM TELEVISION ANTENNA INSTALLER Oxygen Saturation 98% 05/30/2020 3:39 PM TELEVISION ANTENNA INSTALLER Inhaled Oxygen Concentration - - Weight 70.7 kg (155 lb 14.4 oz) 05/30/2020 3:39 PM TELEVISION ANTENNA INSTALLER Height 181.6 cm (5' 11.5) 05/30/2020 3:39 PM CS T Body Mass Index 21.44 05/30/2020 3:39 PM TELEVISION ANTENNA INSTALLER Plan of Treatment Not on file Insurance [facility] EPO Care Teams Application Infrastructure Engineer Relationship Specialty Start Date End Date Cristofer Gentile MD [address] [place] [address] DR Jaylyn COLLINS [address] [place] [id number] PCP - General Internal Medicine 02/03/18
--- OUTSIDE RECORDS SUMMARY | 2025-03-10 14:37 | XMS_ITS | Clinical Summary ---
Author Organization [facility] Care Team Providers Care Planning Associate Name Role Phone Unavailable Primary Care Provider [...]
--- OUTSIDE RECORDS SUMMARY | 2025-03-10 14:37 | XMS_ITS | Clinical Summary ---
Author Organization [facility] [employer] Address [address] [place] [address] Care Team Providers Care Otolaryngologist Name Role Phone Ez Enriquez MD Primary Care Provider [phone] Source Comments [facility] [employer]non-owned Affiliates and Associated Physician Practices is amultiple site organization consisting of ambulatory clinics and hospital sitesin [place], [place], [place] and [place]. This disclosure is being madepursuant to the Care Everywhere program and may not contain all information available regarding this patient. Last updated 18.[facility] [employer] Allergies No known active allergies Medications * [...] Comments Blood Pressure 124/83 05/30/2018 1:06 PM [facility] CR[facility]IC Pulse 119 05/30/2018 1:06 PM [facility]AMA CRITIC Temperature 36.9 C (98.4 F) 05/30/2018 1:06 PM DRAMA CRITIC Respiratory Rate 18 05/30/2018 1:06 PM DRAMA CRITIC Oxygen Saturation 100% 05/30/2018 1:06 PM DRAMA CRITIC Inhaled Oxygen Concentration - - Weight 72.6 kg (160 lb) 05/30/2018 1:06 PM DRAMA CRITIC Height 180.3 cm (5' 11) 05/30/2018 1:06 PM DRAMA CRITIC Body Mass Index 22.32 05/30/2018 1:06 PM DRAMA CRITIC Plan of Treatment Health Maintenance Due Date [...] age to complete this topic Insurance [facility] Care Teams Otolaryngologist Relationship Specialty Start Date End Date Ez Enriquez MD [address] [place] [address] PCP - General 05/27/21
--- NOTE | 2025-03-10 14:48 | ADMGEN ---
This patient, Steve Figueroa, was admitted to IMU Room 206-01. Patient/family oriented to hospital policies and general routines including ID bracelet, bed and alarms, visiting hours, pain management, procedures, bathroom and other care routines, personal items, smoking policy, room service/diet, and visiting hours. Information on how to activate the Rapid Response Team has been discussed. Patient/Family are encouraged to report perceived risks to care and to ask questions if they do not understand what they are told or what they should do.
--- NOTE | 2025-03-10 15:24 | ECG_ITS ---
Test Date: 2025-03-10 14:46:58 Measurements Intervals [place] Rate: 115 P: 0 [place]: 0 QRS: 11 QRSD: 101 T: 32 QT: 331 QTc: 458 Interpretive Statements SINUS TACHYCARDIA INCOMPLETE RIGHT BUNDLE BRANCH BLOCK BORDERLINE LEFTWARD AXIS ABNORMAL ECG Compared to ECG 03/10/2025 13:05:03 NO CHANGE Electronically Signed On 03-11-2025 08:30:37 CDT by Karsten Rodriguez M.D.
[2025-03-10 15:45] LABS: Troponin I < 0.012 ng/mL (0.000-0.034)
[2025-03-10] MEDS: chlordiazePOXIDE (*CRX) 25 MG CAPSULE 50 MG PO (18:17)
[2025-03-10] MEDS: diazePAM INJ (*CRX) 10 MG/2 ML SYRINGE IV PUSH (18:18)
[2025-03-10] MEDS: LORazepam (*CRX) 1 MG TABLET 4 MG PO (20:37)
[2025-03-11] VITALS (16 sets, daily range): BP systolic 113–149; BP diastolic 79–85; PULSE 85–123; RESP 14–16; TEMP 36.6–37.1; O2SAT 99–100
[2025-03-11] MEDS: chlordiazePOXIDE (*CRX) 25 MG CAPSULE 50 MG PO ×4 (00:07→17:40)
[2025-03-11] MEDS: diazePAM INJ (*CRX) 10 MG/2 ML SYRINGE IV PUSH ×2 (00:27→09:52)
[2025-03-11 04:38] LABS: Hematocrit 38.1 % (42.0-52.0); Hemoglobin 12.9 g/dL (14.0-18.0); Immature Granulocyte Percent A 0.5 % (0-0.5); Immature Platelet Fraction Pct 5.6 % (0.9-11.2); Lymphocytes Absolute Auto 1.01 K/mm3 (0.9-3.2); Mean Corpuscular HGB Conc 33.9 g/dl (32-36); Mean Corpuscular Hemoglobin 35.1 pg (26-34); Mean Corpuscular Volume 103.8 fl (80-100); Nucleated Red Blood Cells Absolute Auto 0.000 K/mm3 (0.0-0.012); Nucleated Red Blood Cells Perc 0.0 % (0.0-0.2); Platelet Count Result 139 k/mm3 (150-375); Red Blood Count 3.67 M/mm3 (4.6-6.20); White Blood Count 4.3 K/mm3 (4.5-10.0)
[2025-03-11 04:54] LABS: Anion Gap 14 mmol/L (4-12); Blood Urea Nitrogen 11 mg/dL (9-20); Calcium 8.9 mg/dL (8.4-10.2); Carbon Dioxide 20 mmol/L (22-30); Chloride 99 mmol/L (98-107); Estimated CRCL calculation 158 ml/min; Estimated Glomerular Filt Rate > 60; Glucose 83 mg/dL (65-110); Magnesium 1.9 mg/dL (1.6-2.3); Potassium 4.3 mmol/L (3.4-5.0); Sodium 133 mmol/L (137-145)
[2025-03-11] MEDS: FOLIC ACID 1 MG TABLET PO (09:52)
[2025-03-11] MEDS: THIAMINE HCL 100 MG TABLET PO (09:52)
[2025-03-11] MEDS: THERAPEUTIC MULTIVITAMINS/MINERALS TAB (*BKC) 1 TABLET PO (09:52)
[2025-03-11] MEDS: LORazepam (*CRX) 1 MG TABLET 2 MG PO ×3 (12:47→20:31)
--- NOTE | 2025-03-11 13:21 | P.PNIM_ITS ---
Progress Note: A&P Assessment and Plan (1) Alcohol withdrawal syndrome: Qualifiers: Complication of substance-induced condition: with unspecified complication Qualified Code(s): F10.939 - Alcohol use, unspecified with withdrawal, unspecified Code(s): F10.939 - Alcohol use, unspecified with withdrawal, unspecified Status: Acute (2) Alcohol abuse: Code(s): F10.10 - Alcohol abuse, uncomplicated Status: Acute (3) Elevated liver function tests: Code(s): R79.89 - Other specified abnormal findings of blood chemistry Status: Acute (4) Anxiety: Code(s): F41.9 - Anxiety disorder, unspecified Status: Acute (5) Atrial flutter: Code(s): I48.92 - Unspecified atrial flutter Status: Acute Plan 39-year-old male patient has past medical history of depression, alcoholism and anxiety use presents the hospital with alcohol withdrawals. He states that he drinks vodka , he states that his last drink was 2:00 a.m. 03/10/2025. Patient complains of chest pain, nausea, vomiting and numbness to his feet. CIWA score in the ED was 26. Patient states that he is willing to go to rehab. He has done rehab several times. Patient states the medications are helping somewhat with his withdrawals however he is still diaphoretic and tachycardic. Denies nausea or vomiting. Lab work in the ED shows chloride of 97, carbon dioxide less than 5, AST 174 ALT 124, 1st troponin negative, UA negative for infection, tox screen negative, ethanol level to 202. Chest x-ray with no acute findings. EKG with atrial flutter at 117. Alcohol withdrawal continue CIWA protocol as ordered scheduled Librium. Ativan/Valium Alcohol abuse Elevated LFTs Anxiety DVT prophylaxis SCDs Code status full code Subjective Date/time seen: 03/11/25 13:21 Interval history: Feels better today. CIWA score reviewed. Less shaky. Denies any abdominal pain nausea vomiting. Review of Systems Review of Systems: All systems reviewed & are unremarkable except as noted in HPI and below Exam Narrative: General: well appearing, appears stated age. HEENT: normocephalic, atraumatic. Mucous membranes moist. EOMI, PERRLA, bilateral sclera anicteric, no conjunctival injection. Neck supple without JVD, lymphadenopathy, or bruit. Respiratory: clear to ascultation bilaterally. No rales/rhonic/wheezes. Cardiovascular: Regular rate and rhythm, normal S1-S2 upon ascultation. No murmurs, rubs, or clicks. Abdomen: Soft, round, no pulsatile masses, nondistended and nontender. No rebound, no guarding. Extremities: No cyanosis, clubbing, or edema present. Pulses are palpable 2/2. Active ROM to all four extremities. Neuro: Alert and orientated x 4. PERRLA. Cranial nerves 2-12 intact without focal deficit. Skin: Warm, dry, and intact, without rash, erythema, or lesion. Psych: pleasant, cooperative, normal speech, normal affect, no hallucinations, no dysarthia Objective Data Vital Signs Vital Signs: Vital Signs - 24 hr 03/10/25 13:30 03/10/25 13:33 03/10/25 13:45 Temperature Pulse Rate 115 H 114 H 110 H Pulse Rate [Monitor] Respiratory Rate 18 19 18 Blood Pressure 132/83 Pulse Oximetry 97 98 98 Oxygen Delivery 03/10/25 13:46 03/10/25 13:47 03/10/25 14:00 Temperature Pulse Rate 110 H 110 H 111 H Pulse Rate [Monitor] Respiratory Rate 19 18 17 Blood Pressure 142/88 H Pulse Oximetry 97 98 Oxygen Delivery 03/10/25 14:01 03/10/25 14:36 03/10/25 15:45 Temperature 99.7 F H Pulse Rate 110 H 119 H Pulse Rate [Monitor] 122 H Respiratory Rate 18 16 Blood Pressure 145/85 H 131/85 Pulse Oximetry 98 Oxygen Delivery 03/10/25 16:00 03/10/25 16:00 03/10/25 18:00 Temperature Pulse Rate 116 H 116 H Pulse Rate [Monitor] 116 H Respiratory Rate Blood Pressure Pulse Oximetry Oxygen Delivery 03/10/25 18:14 03/10/25 19:38 03/10/25 20:00 Temperature 98.8 F Pulse Rate 118 H Pulse Rate [Monitor] 123 H 112 H Respiratory Rate 17 Blood Pressure 145/74 H Pulse Oximetry 100 Oxygen Delivery 03/10/25 20:00 03/10/25 21:40 03/10/25 22:00 Temperature Pulse Rate 115 H 105 H Pulse Rate [Monitor] Respiratory Rate Blood Pressure Pulse Oximetry 99 Oxygen Delivery Room Air 03/10/25 23:12 03/11/25 00:00 03/11/25 00:00 Temperature 98.0 F Pulse Rate 105 H 104 H Pulse Rate [Monitor] 85 Respiratory Rate 17 Blood Pressure 141/91 H Pulse Oximetry 16 L Oxygen Delivery 03/11/25 02:00 03/11/25 03:07 03/11/25 04:00 Temperature 98.5 F Pulse Rate 98 109 H Pulse Rate [Monitor] 111 H Respiratory Rate 16 Blood Pressure 113/85 Pulse Oximetry 100 Oxygen Delivery 03/11/25 04:00 03/11/25 06:00 03/11/25 08:00 Temperature 98 F Pulse Rate 111 H 107 H 116 H Pulse Rate [Monitor] Respiratory Rate 14 Blood Pressure 122/82 Pulse Oximetry 99 Oxygen Delivery 03/11/25 08:00 03/11/25 10:55 03/11/25 11:44 Temperature 98.7 F Pulse Rate 118 H Pulse Rate [Monitor] 118 H 121 H Respiratory Rate 14 Blood Pressure 120/83 Pulse Oximetry 100 Oxygen Delivery Intake/Output Intake/Output: Intake & Output 03/08/25 03/09/25 03/10/25 03/11/25 23:59 23:59 23:59 23:59 Intake Total 2500 360 Balance 2500 360 Meds/Results Medications: Active Medications Generic Name Dose Route Start Last Admin Trade Name Freq PRN Reason Stop Dose Admin Acetaminophen 650 mg 03/10/25 12:45 Acetaminophen 325 Mg Tablet PO Q4H PRN Mild Pain (1-3) or Fever Al Hydrox/Mg Hydrox/Simethicone 30 ml 03/10/25 12:45 Mag Hydrox/Al Hydrox/Simeth 30 Ml Udc PO QID PRN Dyspepsia Chlordiazepoxide HCl 50 mg 03/10/25 18:00 03/11/25 12:46 Chlordiazepoxide (*Crx) 25 Mg Capsule PO 50 mg Q6HR YELENA Administration Clonazepam 0.5 mg 03/10/25 22:32 Clonazepam (*Crx) 0.5 Mg Tablet PO Q12H PRN Anxiety Diazepam 5 mg 03/10/25 11:35 03/10/25 11:57 Diazepam Inj (*Crx) 10 Mg/2 Ml Syringe IV PUSH 5 mg ONCE PRN Administration Alcohol Withdrawal Diazepam 10 mg 03/10/25 18:09 03/11/25 09:52 Diazepam Inj (*Crx) 10 Mg/2 Ml Syringe IV PUSH 10 mg Q4HR PRN Administration Alcohol Withdrawal Folic Acid 1 mg 03/11/25 09:00 03/11/25 09:52 Folic Acid 1 Mg Tablet PO 1 mg DAILY YELENA Administration Lorazepam 2 mg 03/11/25 13:00 03/11/25 12:47 Lorazepam (*Crx) 1 Mg Tablet PO 2 mg Q4HR YELENA Administration Multivitamins/Calcium 1 tablet 03/11/25 09:00 03/11/25 09:52 Therapeutic Multivitamins/Minerals Tab (*Bkc) PO 1 tablet DAILY YELENA Administration Ondansetron HCl 4 mg 03/10/25 09:08 03/10/25 11:57 Ondansetron Inj 4 Mg/2 Ml Vial IV PUSH 4 mg Q6H PRN Administration Nausea And Vomiting Thiamine HCl 100 mg 03/11/25 09:00 03/11/25 09:52 Thiamine Hcl 100 Mg Tablet PO 100 mg DAILY YELENA Administration Radiology Results: ITS Impressions Chest X-Ray 03/10/25 09:32 IMPRESSION: 1. No acute cardiopulmonary disease. Labs Labs: Laboratory Results - last 24 hr 03/10/25 03/10/25 03/10/25 12:59 15:08 16:27 WBC RBC Hgb Hct MCV MCH MCHC RDW Plt Count MPV Immature Gran % (Auto) Neut % (Auto) Lymph % (Auto) [place] % (Auto) Eos % (Auto) Baso % (Auto) Lymph # (Auto) [place] # (Auto) Eos # (Auto) Baso # (Auto) Abs Immat Gran (auto) Absolute Neuts (auto) Absolute Nucleated RBC Nucleated RBC % % Immature Plt Fraction Sodium Potassium Chloride Carbon Dioxide Anion Gap BUN Creatinine Estim Creat Clear Calc Estimated GFR Glucose POC Capillary Glucose 159 H Calcium Phosphorus Magnesium Troponin I < 0.012 < 0.012 03/10/25 03/11/25 03/11/25 18:30 04:03 11:35 WBC 4.3 L RBC 3.67 L Hgb 12.9 L Hct 38.1 L MCV 103.8 H MCH 35.1 H MCHC 33.9 RDW 13.1 Plt Count 139 L MPV 10.5 H Immature Gran % (Auto) 0.5 Neut % (Auto) 62.9 Lymph % (Auto) 23.6 [place] % (Auto) 11.4 H Eos % (Auto) 0.7 Baso % (Auto) 0.9 Lymph # (Auto) 1.01 [place] # (Auto) 0.5 Eos # (Auto) 0.0 Baso # (Auto) 0.0 Abs Immat Gran (auto) 0.02 Absolute Neuts (auto) 2.7 Absolute Nucleated RBC 0.000 Nucleated RBC % 0.0 % Immature Plt Fraction 5.6 Sodium 133 L Potassium 4.3 Chloride 99 Carbon Dioxide 20 L Anion Gap 14 H BUN 11 Creatinine 0.52 L Estim Creat Clear Calc 158 Estimated GFR > 60 Glucose 83 POC Capillary Glucose 241 H 100 Calcium 8.9 Phosphorus 1.6 L Magnesium 1.9 Troponin I
[2025-03-11] MEDS: NICOTINE (*PBKC) 21 MG PATCH 1 PATCH TRANSDERM (20:31)
--- NOTE | 2025-03-11 22:08 | PC.NURSE ---
Patient left AMA. IV and nicotine patch removed.
--- NOTE | 2025-03-12 15:23 | PM.DS ---
DS: Admitting Diagnosis Discharge Date 03/11/25 Admitting Diagnosis Alcohol withdrawal DS: Discharge Diagnosis Discharge Diagnosis (1) Alcohol withdrawal syndrome: Qualifiers: Complication of substance-induced condition: with unspecified complication Qualified Code(s): F10.939 - Alcohol use, unspecified with withdrawal, unspecified Code(s): F10.939 - Alcohol use, unspecified with withdrawal, unspecified Status: Acute (2) Alcohol abuse: Code(s): F10.10 - Alcohol abuse, uncomplicated Status: Acute (3) Elevated liver function tests: Code(s): R79.89 - Other specified abnormal findings of blood chemistry Status: Acute (4) Anxiety: Code(s): F41.9 - Anxiety disorder, unspecified Status: Acute (5) Atrial flutter: Code(s): I48.92 - Unspecified atrial flutter Status: Acute DS: Summary Hospital Course Hospital Course: 39-year-old male patient has past medical history of depression, alcoholism and anxiety use presents the hospital with alcohol withdrawals. He states that he drinks vodka , he states that his last drink was 2:00 a.m. 03/10/2025. Patient complains of chest pain, nausea, vomiting and numbness to his feet. CIWA score in the ED was 26. Patient states that he is willing to go to rehab. He has done rehab several times. Patient states the medications are helping somewhat with his withdrawals however he is still diaphoretic and tachycardic. Denies nausea or vomiting. Lab work in the ED shows chloride of 97, carbon dioxide less than 5, AST 174 ALT 124, 1st troponin negative, UA negative for infection, tox screen negative, ethanol level to 202. Chest x-ray with no acute findings. EKG with atrial flutter at 117. Alcohol withdrawal continue CIWA protocol as ordered scheduled Librium. Ativan/Valium as ordered. Still was in active alcohol withdrawal however patient decided to leave against medical advise. Alcohol abuse Elevated LFTs Anxiety DVT prophylaxis SCDs Code status full code Time Spent with Patient Time attestation: Total time spent providing and/or coordinating discharge services: 35 minutes Exam Narrative: General: well appearing, appears stated age. HEENT: normocephalic, atraumatic. Mucous membranes moist. EOMI, PERRLA, bilateral sclera anicteric, no conjunctival injection. Neck supple without JVD, lymphadenopathy, or bruit. Respiratory: clear to ascultation bilaterally. No rales/rhonic/wheezes. Cardiovascular: Regular rate and rhythm, normal S1-S2 upon ascultation. No murmurs, rubs, or clicks. Abdomen: Soft, round, no pulsatile masses, nondistended and nontender. No rebound, no guarding. Extremities: No cyanosis, clubbing, or edema present. Pulses are palpable 2/2. Active ROM to all four extremities. Neuro: Alert and orientated x 4. PERRLA. Cranial nerves 2-12 intact without focal deficit. Skin: Warm, dry, and intact, without rash, erythema, or lesion. Psych: pleasant, cooperative, normal speech, normal affect, no hallucinations, no dysarthia DS: Data Data Completed and Pending Labs on day of discharge: Labs from last 24 hours 03/11/25 18:02 POC Capillary Glucose 115 H Imaging Radiologist's impression: ITS Impressions Chest X-Ray 03/10/25 09:32 IMPRESSION: 1. No acute cardiopulmonary disease. Discharge Plan Discharge Patient Disposition: Left Against Medical Advice Patient Language: Bahamian Discharge Medications: No Action clonazepam 0.5 mg tablet 0.5 mg PO Q12H PRN (Reason: anxiety) Date of admission: 03/10/25 11:35 Primary Care Provider: Ez Enriquez Admitting Provider: Mare De Paz Attending physician on admission: Mare De Paz Condition: Stable
--- OUTSIDE RECORDS SUMMARY | 2025-03-13 10:12 | XMS_ITS | Clinical Summary ---
Author Organization [facility] Care Team Providers Care Car Salesperson Name Role Phone Unavailable Primary Care Provider [...]
--- OUTSIDE RECORDS SUMMARY | 2025-03-13 10:12 | XMS_ITS | Clinical Summary ---
Author Organization [facility] Address [address] [place] [id number] Care Team Providers Care Administrative Support Manager Name Role Phone Cristofer Gentile MD Primary Care Provider [phone] Allergies No known active allergies Medications traZODone [...] 05/30/2020 Assessment & Plan (05/30/2020 3:55 PM ACCESSIBILITY LIFT TECHNICIAN): Recently finished inpatient [place] on 04/26/20. He has been doing well since discharge. He is actively seeing a therapist and aftercare program. I recommend that he establish with a psychiatrist for medical management. ED (erectile dysfunction) of organic origin 02/2020 Assessment & Plan (05/30/2020 3:48 PM ACCESSIBILITY LIFT TECHNICIAN): New. We discussed options. Trial of [place] MAKENZIE Raynaud disease 05/30/2020 Assessment & Plan (05/30/2020 3:54 PM ACCESSIBILITY LIFT TECHNICIAN): Intermittent. Aggravated by cold. Advised to keep hands warm. SUSAN (generalized anxiety disorder) 08/11/2019 Assessment & Plan (05/30/2020 3:49 PM ACCESSIBILITY LIFT TECHNICIAN): SUSAN is controlled. Continue current treatment regimen. Regular aerobic exercise. Psychological condition will be reassessed at the next regular appointment. Actively seeing a counsellor. Assessment & Plan (08/11/2019 10:35 AM ACCESSIBILITY LIFT TECHNICIAN): SUSAN is newly identified. Regular aerobic exercise. Referral to psychological counseling. Begin SSRI Psychological condition will be reassessed in 3 months. Panic disorder 08/11/2019 Assessment & Plan (08/11/2019 10:35 AM ACCESSIBILITY LIFT TECHNICIAN): Panic is newly identified. Regular aerobic exercise. Referral to psychological counseling. Begin SSRI Psychological condition will be reassessed in 3 months. Prehypertension 02/08/2019 Assessment & Plan (05/30/2020 3:50 PM ACCESSIBILITY LIFT TECHNICIAN): PreHypertension is improving with lifestyle modifications Continue [...] for 40 seconds each. Aftercare instructions given. 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 Not on file Not on file Obstetrics History Last Filed Vital Signs Vital Sign Reading Time Taken Comments Blood Pressure 110/62 05/30/2020 3:39 PM ACCESSIBILITY LIFT TECHNICIAN Pulse 110 05/30/2020 3:39 PM ACCESSIBILITY LIFT TECHNICIAN Temperature 36.8 C (98.2 F) 05/30/2020 3:39 PM ACCESSIBILITY LIFT TECHNICIAN Respiratory Rate 16 08/11/2019 10:2 3 AM ACCESSIBILITY LIFT TECHNICIAN Oxygen Saturation 98% 05/30/2020 3:39 PM ACCESSIBILITY LIFT TECHNICIAN Inhaled Oxygen Concentration - - Weight 70.7 kg (155 lb 14.4 oz) 05/30/2020 3:39 PM ACCESSIBILITY LIFT TECHNICIAN Height 181.6 cm (5' 11.5) 05/30/2020 3:39 PM CS T Body Mass Index 21.44 05/30/2020 3:39 PM ACCESSIBILITY LIFT TECHNICIAN Plan of Treatment Not on file Insurance [facility] EPO Care Teams Administrative Support Manager Relationship Specialty Start Date End Date Cristofer Gentile MD [address] [place] [address] DR Jaylyn COLLINS [address] [place] [id number] PCP - General Internal Medicine 02/03/18
--- OUTSIDE RECORDS SUMMARY | 2025-03-13 10:12 | XMS_ITS | Clinical Summary ---
Author Organization [facility] Address [address] [place] [address] Phone Care Team Providers Care Employee Representative Name Role Phone Unavailable Primary Care Provider [...] on file Legal Sex Male 11:03 AM CATALYTIC CONVERTER OPERATOR Gender Identity Not on file Sexual Orientation Not on file Last Filed Vital Signs Vital Sign Reading Time Taken Comments Blood Pressure 130/76 05/21/2014 11:24 AM CATALYTIC CONVERTER OPERATOR Pulse - - Temperature 36.9 C (98.5 F) 05/21/2014 11:24 AM CATALYTIC CONVERTER OPERATOR Respiratory Rate 18 05/21/2014 11:24 AM CATALYTIC CONVERTER OPERATOR Oxygen Saturation 100% 05/21/2014 11:24 AM CATALYTIC CONVERTER OPERATOR Inhaled Oxygen Concentration - - Weight 65.8 kg (145 lb) 05/21/2014 11:24 AM CATALYTIC CONVERTER OPERATOR Height 177.8 cm (5' 10) 05/21/2014 11:24 AM CATALYTIC CONVERTER OPERATOR Body Mass Index 20.81 05/21/2014 11:24 AM CATALYTIC CONVERTER OPERATOR Plan of Treatment Health Maintenance Due Date Last Done Comments DTAP/TDAP/TD VACCINES (1 - Tdap) 2004 HEPATITIS B VACCINES (1 of 3 - 19+ 3-dose series) 02/2005 HPV VACCINES (1 - 3-dose SCDM series) 2012 INFLUENZA VACCINE (#1) 2025 Insurance [facility] [employer] PPO [id number]
== END 2025-03-11 22:06 | disposition left against medical advice (07) ==
LOC: ANHED 08:50 → ANHIMU 13:12
PROVIDERS: Nurse Practitioner Gerontology; Admitting Provider Internal Medicine; Emergency Provider Nurse Practitioner Family; PCP Family Medicine; Visit Provider Internal Medicine
DX: F10.139 Alcohol abuse with withdrawal, unspecified (principal); Y90.7 Blood alcohol level of 200-239 mg/100 ml; I48.92 Unspecified atrial flutter; R79.89 Other specified abnormal findings of blood chemistry; F41.8 Other specified anxiety disorders; Z82.49 Family history of ischemic heart disease and other diseases of the circulatory system; Z80.3 Family history of malignant neoplasm of breast; Z53.29 Procedure and treatment not carried out because of patient's decision for other reasons
CPT/HCPCS: 36415; 71046; 80048; 80053; 80307; 81001; 82077; 82948; 83690; 83735; 84100; 84484; 85025; 85055; 85610; 85730; 93005; 96361; 96374; 96375; 96376; 99285; A9270; G0378; J2250; J2405; J3360; J3411; J3475; J7030

== ENCOUNTER 2025-04-21 08:31 | Observation (INO) | payer BC, SELFPAY ==
[2025-04-21] VITALS (25 sets, daily range): BP systolic 113–138; BP diastolic 80–97; PULSE 92–125; RESP 14–26; TEMP 36.7–37.5; O2SAT 95–100; BMI 22.3
--- NOTE | ~2025-04-21 | CT_ITS ---
EXAMINATION: CT brain wo con COMPARISON: None HISTORY: ataxia TECHNIQUE: Axial images were obtained through the brain without IV contrast. CT scan performed using dose optimization techniques including the following automated exposure control; adjustment of mA and/or kV; use of iterative reconstruction technique. Automatic exposure control was used to reduce radiation dose. Permanent radiation dose record is archived to PACS. FINDINGS: No acute infarct or parenchymal hemorrhage. No abnormal mass or mass effect. No midline shift. No extra-axial fluid collections. No hydrocephalus. . Mastoid air cells unremarkable. Sinuses and orbits unremarkable. No acute fracture. No significant facial or scalp soft tissue swelling evident. No radiopaque foreign body is seen. Impression: 1.No acute intracranial abnormality. Reviewed, dictated and finalized at location P. Impression: 1.No acute intracranial abnormality.
--- NOTE | 2025-04-21 08:43 | ECG_ITS ---
Test Date: 2025-04-21 08:47:42 Measurements Intervals [place] Rate: 105 P: 69 AR: 160 QRS: 50 QRSD: 117 T: 45 QT: 361 QTc: 478 Interpretive Statements SINUS TACHYCARDIA INCOMPLETE RIGHT BUNDLE BRANCH BLOCK BORDERLINE T WAVE ABNORMALITY- INFERIOR LEADS BORDERLINE ECG Compared to ECG 03/10/2025 14:46:58 HEART RATE HAS DECREASED Electronically Signed On 04-21-2025 09:36:13 CDT by Kirit Wood D.O.
--- OUTSIDE RECORDS SUMMARY | 2025-04-21 08:46 | XMS_ITS | Clinical Summary ---
Author Organization [facility] Address [address] [place] [id number] Care Team Providers Care Svp Digital Sales Name Role Phone Cristofer Gentile MD Primary Care Provider [phone] Allergies No known active allergies Medications traZODone [...] 05/30/2020 Assessment & Plan (05/30/2020 3:55 PM COLLISION REPAIR TECHNICIAN): Recently finished inpatient [place] on 04/26/20. He has been doing well since discharge. He is actively seeing a therapist and aftercare program. I recommend that he establish with a psychiatrist for medical management. ED (erectile dysfunction) of organic origin 02/2020 Assessment & Plan (05/30/2020 3:48 PM COLLISION REPAIR TECHNICIAN): New. We discussed options. Trial of Aidenada MAKENZIE Raynaud disease 05/30/2020 Assessment & Plan (05/30/2020 3:54 PM COLLISION REPAIR TECHNICIAN): Intermittent. Aggravated by cold. Advised to keep hands warm. SUSAN (generalized anxiety disorder) 08/11/2019 Assessment & Plan (05/30/2020 3:49 PM COLLISION REPAIR TECHNICIAN): SUSAN is controlled. Continue current treatment regimen. Regular aerobic exercise. Psychological condition will be reassessed at the next regular appointment. Actively seeing a counsellor. Assessment & Plan (08/11/2019 10:35 AM COLLISION REPAIR TECHNICIAN): SUSAN is newly identified. Regular aerobic exercise. Referral to psychological counseling. Begin SSRI Psychological condition will be reassessed in 3 months. Panic disorder 08/11/2019 Assessment & Plan (08/11/2019 10:35 AM COLLISION REPAIR TECHNICIAN): Panic is newly identified. Regular aerobic exercise. Referral to psychological counseling. Begin SSRI Psychological condition will be reassessed in 3 months. Prehypertension 02/08/2019 Assessment & Plan (05/30/2020 3:50 PM COLLISION REPAIR TECHNICIAN): PreHypertension is improving with lifestyle modifications [...] for 40 seconds each. Aftercare instructions given. 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 file Not on file Not on file Obstetrics History Last Filed Vital Signs Vital Sign Reading Time Taken Comments Blood Pressure 110/62 05/30/2020 3:39 PM COLLISION REPAIR TECHNICIAN Pulse 110 05/30/2020 3:39 PM COLLISION REPAIR TECHNICIAN Temperature 36.8 C (98.2 F) 05/30/2020 3:39 PM COLLISION REPAIR TECHNICIAN Respiratory Rate 16 08/11/2019 10:2 3 AM COLLISION REPAIR TECHNICIAN Oxygen Saturation 98% 05/30/2020 3:39 PM COLLISION REPAIR TECHNICIAN Inhaled Oxygen Concentration - - Weight 70.7 kg (155 lb 14.4 oz) 05/30/2020 3:39 PM COLLISION REPAIR TECHNICIAN Height 181.6 cm (5' 11.5) 05/30/2020 3:39 PM CS T Body Mass Index 21.44 05/30/2020 3:39 PM COLLISION REPAIR TECHNICIAN Plan of Treatment Not on file Insurance [facility] E[facility] Care Teams Svp Digital Sales Relationship Specialty Start Date End Date Cristofer Gentile MD [address] [place] [address] DR Jaylyn COLLINS [address] [place] [id number] PCP - General Internal Medicine 02/03/18
--- OUTSIDE RECORDS SUMMARY | 2025-04-21 08:46 | XMS_ITS | Patient Health Record ---
Author Organization [facility] Address [address] [facility] [address] [place] [address] Care Team Providers Care Sales Engagement Manager Name Role Phone Zeus Francis Unavailable [phone] Reason For Referral No Information Medications Medication SIG (Take, Route, Frequency, Duration) Notes Start Date End Date Status Naltrexone HCl 50 MG Tablet Oral 09/19/2019 Active Sertraline HCl 50 MG Tablet Oral 09/19/2019 Active Social History Social History Additional Details Category Social Info Options Details Migrated Social History Migrated Social History Alcohol Intake: None 09/05/2019,Tobacco Years: Former smoker 09/05/2019,Smoking Status: 15 09/05/2019 Plan Of Treatment No Information Insurance Providers Payer Name Payer Address Payer Phone Subscriber Number Group Number Insured Name Patient Relationship to Insured Coverage Start Date Coverage End Date [employer] [address] [place] [phone] [id number] HYACINTH GARNER Self - patient is the insured
--- OUTSIDE RECORDS SUMMARY | 2025-04-21 08:46 | XMS_ITS | Clinical Summary ---
Author Organization [facility] Address [address] [facility] [place] [address] Care Team Providers Care Visitor Services Information Assistant Name Role Phone Ez Enriquez MD Primary Care Provider [phone] Source Comments [facility],non-owned Affiliates and Associated Physician Practices is amultiple site organization consisting of ambulatory clinics and hospital sitesin [place], [place], [place] and [place]. This disclosure is being madepursuant to the Care Everywhere program and may not contain all information available regarding this patient. Last updated 18.[facility] Allergies No known active allergies Medications * [...] Comments Blood Pressure 124/83 05/30/2018 1:06 PM EDGE GLUE MACHINE TENDER Pulse 119 05/30/2018 1:06 PM EDGE GLUE MACHINE TENDER Temperature 36.9 C (98.4 F) 05/30/2018 1:06 PM EDGE GLUE MACHINE TENDER Respiratory Rate 18 05/30/2018 1:06 PM EDGE GLUE MACHINE TENDER Oxygen Saturation 100% 05/30/2018 1:06 PM EDGE GLUE MACHINE TENDER Inhaled Oxygen Concentration - - Weight 72.6 kg (160 lb) 05/30/2018 1:06 PM EDGE GLUE MACHINE TENDER Height 180.3 cm (5' 11) 05/30/2018 1:06 PM EDGE GLUE MACHINE TENDER Body Mass Index 22.32 05/30/2018 1:06 PM EDGE GLUE MACHINE TENDER Plan of Treatment Health Maintenance Due Date [...] age to complete this topic Insurance [employer] Care Teams Visitor Services Information Assistant Relationship Specialty Start Date End Date Ez Enriquez MD [address] [place] [address] PCP - General 05/27/21
--- OUTSIDE RECORDS SUMMARY | 2025-04-21 08:46 | XMS_ITS | Clinical Summary ---
Author Organization [facility] Care Team Providers Care Paving Crew Foreman Name Role Phone Unavailable Primary Care Provider [...] Immunization (1 - 3-dose SCDM series) 2012 Influenza Immunization (#1) 02/20/202503/23, 04/27/2020 SARS-COV-2 Immunization ( - 2024- season) 2025 04/19/2021, 08/24/2020 Respiratory Syncytial Virus (RSV) Immunization [...]
--- OUTSIDE RECORDS SUMMARY | 2025-04-21 08:46 | XMS_ITS | Clinical Summary ---
Author Organization [facility] Address [address] [place] [address] Phone Care Team Providers Care Furniture Repairer Name Role Phone Unavailable Primary Care Provider [...] on file Legal Sex Male 11:03 AM COOK HELPER DESSERT Gender Identity Not on file Sexual Orientation Not on file Last Filed Vital Signs Vital Sign Reading Time Taken Comments Blood Pressure 130/76 05/21/2014 11:24 AM COOK HELPER DESSERT Pulse - - Temperature 36.9 C (98.5 F) 05/21/2014 11:24 AM COOK HELPER DESSERT Respiratory Rate 18 05/21/2014 11:24 AM COOK HELPER DESSERT Oxygen Saturation 100% 05/21/2014 11:24 AM COOK HELPER DESSERT Inhaled Oxygen Concentration - - Weight 65.8 kg (145 lb) 05/21/2014 11:24 AM COOK HELPER DESSERT Height 177.8 cm (5' 10) 05/21/2014 11:24 AM COOK HELPER DESSERT Body Mass Index 20.81 05/21/2014 11:24 AM COOK HELPER DESSERT Plan of Treatment Health Maintenance Due Date Last Done Comments DTAP/TDAP/TD VACCINES (1 - Tdap) 2004 HEPATITIS B VACCINES (1 of 3 - 19+ 3-dose series) 02/2005 HPV VACCINES (1 - 3-dose SCDM series) 2012 INFLUENZA VACCINE (#1) 2025 Insurance [facility] OPTIONS PPO [id number]
--- NOTE | 2025-04-21 09:23 | ED_ITS ---
HPI - Alcohol General Chief Complaint: Alcohol Stated Complaint: EtOH withdrawal Time Seen by Provider: 04/21/25 09:23 Source: patient and family Mode of arrival: ambulatory Limitations: no limitations History of Present Illness HPI narrative: The patient is a male who presents to the emergency department with concerns for alcohol withdrawal. The patient states his last alcoholic beverage was two days ago. He reports a recent relapse with consumption of nearly a fifth of liquor per day. For the past couple of days, he has experienced progressively worsening symptoms including generalized body aches, profound fatigue, disorientation, and significant imbalance, noting he has been stumbly and had trouble walking today. He denies any falls or injuries. The patient has a history of chronic alcohol abuse and recently attended a rehab program for approximately 2.5 weeks. He was prescribed Gabapentin for neuropathy-like symptoms and Disulfiram. He reports he stopped taking the Disulfiram in order to resume drinking. He denies any current suicidal or homicidal ideation and denies any past suicide attempts. MD complaint: alcohol withdrawal Last drink: days (ago) (2) Amount of alcohol consumed: a pint Chronic alcohol use: Yes Previous visits for alcohol intoxication: Yes Recent trauma: No Associated symptoms: nausea, tremors and other (ataxia) Treatments prior to arrival: none Related Data Home Medications ?Medication ?Instructions ?Recorded ?Confirmed ?Last Taken ?Type clonazepam 0.5 mg tablet 0.5 mg PO Q12H PRN anxiety 0 10/24/21 03/10/25 Unknown History Allergies Allergy/AdvReac Type Severity Reaction Status Date / Time No Known Allergies Allergy Verified 04/21/25 08:59 Review of Systems 2 Review of Systems: All systems reviewed & are unremarkable except as noted in HPI and below PMFSH Past Medical History Medical History Depression BMI 20.0-20.9, adult Alcoholism Anxiety Surgical History Surgical History History of repair of right rotator cuff Family History Family History Father Hypertension Mother Dupuytrens contracture Breast cancer Sibling Hypertension Grandparent Depression Grandparent Anxiety Social History Social History (Reviewed 03/10/25 @ 09:17 by LEEANNE Newberry Social History: Surrogate medical decision maker: Eulalio Mohan, spouse. Code status: Full code. Years smoked: 15 Smoking status: Never smoker Tobacco type: e-cigarettes/vaping Second hand tobacco smoke exposure: No Alcohol intake: current Drinks per week: 70 Alcohol use details: Longstanding history of alcohol abuse. Began drinking again 11/20/2024, half of a 5th a day. Substance use: never Substance use type: does not use Do You Feel Safe in your Home?: Yes Lack of Transportation: No Lack of Food: Never True Current Housing: I Have Housing Concerned About Future Housing: No Difficulty Paying Gas/Electric Bills: No Difficulty Paying for Meds: No Currently Unemployed: No Education: Bachelor's Degree Difficulty w/ Childcare or Family Care: No Spiritual care concerns: No Exam 2 Narrative: GENERAL: Mildly ill-appearing, dysthymic, but no acute distress HEAD: Normocephalic, atraumatic. ENT:? Mucous membranes moist. CHEST: Clear to auscultation.? No respiratory distress. HEART: Tachycardic rate and regular rhythm. ? Normal peripheral pulses. ABDOMEN: Soft, nontender, nondistended. EXTREMITIES: Normal range of motion. No peripheral edema. SKIN: Warm dry normal color NEURO: Alert and oriented x2-3. Visibly tremulous and upper extremity moderate ataxia noted on brief neurologic exam PSYCH: Dysthymic mood, denies HI SI Course Vital Signs Vital signs: Vital Signs Temperature 36.7 C 04/21/25 08:35 Pulse Rate 118 H 04/21/25 08:35 Respiratory Rate 20 04/21/25 08:35 Blood Pressure 131/96 H 04/21/25 08:35 Pulse Oximetry 99 04/21/25 08:35 Oxygen Delivery Room Air 04/21/25 08:35 Temperature 36.7 C 04/21/25 08:35 Pulse Rate 123 H 04/21/25 11:33 Respiratory Rate 19 04/21/25 11:33 Blood Pressure 119/93 H 04/21/25 11:33 Pulse Oximetry 95 04/21/25 11:33 Oxygen Delivery Room Air 04/21/25 08:35 MDM - Alcohol MDM Narrative Medical decision making narrative: Patient presents with dysthymic mood, report of unsteady ambulation, stopped taking some of his medications to help with his alcohol abuse in ordered drink. He claims last ETOH use was 2 days ago. No signs of acute trauma. Patient with visual tremors and elevated heart rate. Hands mildly ataxic on brief assessment. CT scan obtained of the head was unremarkable. Labs generally unremarkable as documented. ETOH level elevated. Went to discuss with patient and he immediately went to significant tachycardia 138. CIWA was 17 in the emergency department. Administered Librium 50 mg, 2 L IV fluid bolus ordered. Discussed case with on-call hospitalist who agreed for observation admission for CIWA monitoring, Librium use and set up with [facility] for ETOH abuse resources. Differential Diagnosis Differential diagnosis: Likely alcohol withdrawal delirium, alcohol intoxication and alcohol withdrawal syndrome Lab Data Lab results narrative: Elevated alcohol level indicates patient was not truthful about his last alcohol intake 2 days ago, mildly depressed white blood cell count of 3.8 mildly elevated glucose at 145, otherwise labs COVID flu RSV urine drug screen unremarkable/negative. 04/21/25 09:12 04/21/25 09:12 Labs: Lab Results 04/21/25 Range/Units 09:12 WBC 3.8 L (4.5-10.0) K/mm3 RBC 4.45 L (4.6-6.20) M/mm3 Hgb 14.9 (14.0-18.0) g/dL Hct 44.3 (42.0-52.0) % MCV 99.6 (80-100) fl MCH 33.5 (26-34) pg MCHC 33.6 (32-36) g/dl RDW 12.9 (11.5-14.5) % Plt Count 161 (150-375) k/mm3 MPV 10.4 (7.4-10.4) fl Immature Gran % (Auto) 0.3 (0-0.5) % Neut % (Auto) 31.0 L (45.5-73.1) % Lymph % (Auto) 57.3 H (18.3-44.2) % [place] % (Auto) 6.5 (2.6-8.5) % Eos % (Auto) 3.9 (0-4.4) % Baso % (Auto) 1.0 (0.2-1.2) % Lymph # (Auto) 2.19 (0.9-3.2) K/mm3 [place] # (Auto) 0.3 (0.1-0.6) K/mm3 Eos # (Auto) 0.2 (0-0.3) K/mm3 Baso # (Auto) 0.0 (0.0-0.1) K/mm3 Abs Immat Gran (auto) 0.01 (0.00-0.031) K/mm3 Absolute Neuts (auto) 1.2 L (1.3-6.7) K/mm3 Absolute Nucleated RBC 0.000 (0.0-0.012) K/mm3 Nucleated RBC % 0.0 (0.0-0.2) % Sodium 141 (137-145) mmol/L Potassium 3.6 (3.4-5.0) mmol/L Chloride 98 (98-107) mmol/L Carbon Dioxide 29 (22-30) mmol/L Anion Gap 14 H (4-12) mmol/L BUN 11 (9-20) mg/dL Creatinine 0.63 L (0.7-1.3) mg/dL Estim Creat Clear Calc 129 ml/min Estimated GFR > 60 (59 - ) Glucose 145 H (65-110) mg/dL Calcium 8.9 (8.4-10.2) mg/dL Total Bilirubin 0.7 (0.2-1.3) mg/dL AST 227 H (17-59) U/L ALT 118 H (6-50) U/L Alkaline Phosphatase 140 H (38-126) U/L Total Protein 8.0 (6.3-8.2) g/dL Albumin 4.9 (3.5-5.1) g/dL TSH (Reflex) 2.270 (0.465-4.68) uIU/mL Urine Color Yellow (Yellow) Urine Appearance Clear (Clear) Urine pH 6.0 (5.0-9.0) Ur Specific [place] 1.009 (1.001-1.035) Urine Protein Negative (Negative) mg/dL Urine Glucose (UA) Negative (Negative) mg/dL Urine Ketones Trace H (Negative) mg/dL Ur Blood (Man) Negative (Negative) Urine Nitrate Negative (Negative) Urine Bilirubin Negative (Negative) Urine Urobilinogen 0.2 (<2.0) mg/dL Leukocyte Esterase Rfl Negative (Negative) CARLOS MANUEL/UL Urine Opiates Screen Negative (Negative) Urine Methadone Screen Negative (Negative) Ur Barbiturates Screen Negative (Negative) Ur Phencyclidine Scrn Negative (Negative) Ur Amphetamine Screen Negative (Negative) U Benzodiazepines Scrn Negative (Negative) Urine Cocaine Screen Negative (Negative) U Cannabinoids Screen Negative (Negative) Ethyl Alcohol 261 (<10) mg/dL Influenza A (RT-PCR) Negative (Negative) Influenza B (RT-PCR) Negative (Negative) RSV (RT-PCR) Negative (Negative) SARS-CoV-2 RNA (RT-PCR) Negative (Negative) Imaging Data My impression: My independent interpretation of CT scan of the head noncontrast no intracranial bleeding or mass effect noted. Radiologist's impression: ITS Impressions Head CT 04/21/25 09:47 Impression: 1.No acute intracranial abnormality. EXAMINATION: CT brain wo con COMPARISON: None HISTORY: ataxia TECHNIQUE: Axial images were obtained through the brain without IV contrast. CT scan performed using dose optimization techniques including the following automated exposure control; adjustment of mA and/or kV; use of iterative reconstruction technique. Automatic exposure control was used to reduce radiation dose. Permanent radiation dose record is archived to PACS. FINDINGS: No acute infarct or parenchymal hemorrhage. No abnormal mass or mass effect. No midline shift. No extra-axial fluid collections. No hydrocephalus. . Mastoid air cells unremarkable. Sinuses and orbits unremarkable. No acute fracture. No significant facial or scalp soft tissue swelling evident. No radiopaque foreign body is seen. Impression: 1.No acute intracranial abnormality. Reviewed, dictated and finalized at location P. Discharge Plan Discharge Clinical Impression: Acute alcohol intoxication with alcoholism Qualifiers: Complication of substance-induced condition: uncomplicated Qualified Code(s): F 10.220 - Alcohol dependence with intoxication, uncomplicated Patient Disposition: Acute Care Hospital Condition: Guarded Prognosis Patient Language: Hungarian Prescriptions: No Action clonazepam 0.5 mg tablet 0.5 mg PO Q12H PRN (Reason: anxiety) Follow-up/Referrals: Ez Enriquez MD [Primary Care Provider, [facility]] Time of Disposition: 11:30
[2025-04-21 09:25] LABS: Hematocrit 44.3 % (42.0-52.0); Hemoglobin 14.9 g/dL (14.0-18.0); Immature Granulocyte Percent A 0.3 % (0-0.5); Lymphocytes Absolute Auto 2.19 K/mm3 (0.9-3.2); Mean Corpuscular HGB Conc 33.6 g/dl (32-36); Mean Corpuscular Hemoglobin 33.5 pg (26-34); Mean Corpuscular Volume 99.6 fl (80-100); Nucleated Red Blood Cells Absolute Auto 0.000 K/mm3 (0.0-0.012); Nucleated Red Blood Cells Perc 0.0 % (0.0-0.2); Platelet Count Result 161 k/mm3 (150-375); Red Blood Count 4.45 M/mm3 (4.6-6.20); White Blood Count 3.8 K/mm3 (4.5-10.0)
[2025-04-21 09:30] LABS: Add Urine Microscopic? NO; Appearance Urine Clear (Clear); Glucose Urine UA Negative (Negative); Leukocyte Esterase Ur Negative LEU/UL (Negative); Nitrate Urine Negative (Negative); Specific Grav Ur 1.009 (1.001-1.035)
[2025-04-21 09:39] LABS: Alanine Aminotransferase 118 U/L (6-50); Albumin Level 4.9 g/dL (3.5-5.1); Alkaline Phosphatase 140 U/L (38-126); Anion Gap 14 mmol/L (4-12); Aspartate Amino Transferase 227 U/L (17-59); Bilirubin,Total 0.7 mg/dL (0.2-1.3); Blood Urea Nitrogen 11 mg/dL (9-20); Calcium 8.9 mg/dL (8.4-10.2); Carbon Dioxide 29 mmol/L (22-30); Chloride 98 mmol/L (98-107); Estimated CRCL calculation 129 ml/min; Estimated Glomerular Filt Rate > 60; Glucose 145 mg/dL (65-110); Potassium 3.6 mmol/L (3.4-5.0); Sodium 141 mmol/L (137-145); Total Protein 8.0 g/dL (6.3-8.2)
[2025-04-21 10:05] LABS: Influenza A QL RT-PCR Negative (Negative); Influenza B QL RT-PCR Negative (Negative); RSV RNA, RT-PCR Negative (Negative); SARS-CoV-2 RNA PCR Negative (Negative)
--- OUTSIDE RECORDS SUMMARY | 2025-04-21 10:16 | XMS_ITS | Clinical Summary ---
Author Organization [facility] Address [address] [place] [address] Phone Care Team Providers Care Field Mechanical Meter Tester Name Role Phone Unavailable Primary Care Provider [...] on file Legal Sex Male 11:03 AM ORTHODONTIC ASSISTANT Gender Identity Not on file Sexual Orientation Not on file Last Filed Vital Signs Vital Sign Reading Time Taken Comments Blood Pressure 130/76 05/21/2014 11:24 AM ORTHODONTIC ASSISTANT Pulse - - Temperature 36.9 C (98.5 F) 05/21/2014 11:24 AM ORTHODONTIC ASSISTANT Respiratory Rate 18 05/21/2014 11:24 AM ORTHODONTIC ASSISTANT Oxygen Saturation 100% 05/21/2014 11:24 AM ORTHODONTIC ASSISTANT Inhaled Oxygen Concentration - - Weight 65.8 kg (145 lb) 05/21/2014 11:24 AM ORTHODONTIC ASSISTANT Height 177.8 cm (5' 10) 05/21/2014 11:24 AM ORTHODONTIC ASSISTANT Body Mass Index 20.81 05/21/2014 11:24 AM ORTHODONTIC ASSISTANT Plan of Treatment Health Maintenance Due Date Last Done Comments DTAP/TDAP/TD VACCINES (1 - Tdap) 2004 HEPATITIS B VACCINES (1 of 3 - 19+ 3-dose series) 02/2005 HPV VACCINES (1 - 3-dose SCDM series) 2012 INFLUENZA VACCINE (#1) 2025 Insurance [facility] OPTIONS PPO [id number]
--- OUTSIDE RECORDS SUMMARY | 2025-04-21 10:16 | XMS_ITS | Clinical Summary ---
Author Organization [facility] Care Team Providers Care Toddler Guide Name Role Phone Unavailable Primary Care Provider [...]
--- OUTSIDE RECORDS SUMMARY | 2025-04-21 10:16 | XMS_ITS | Clinical Summary ---
Author Organization [facility] Address [address] [facility] [place] [address] Care Team Providers Care Double Corner Cutter Name Role Phone Ez Enriquez MD Primary Care Provider [phone] Source Comments [facility],non-owned Affiliates and Associated Physician Practices is amultiple site organization consisting of ambulatory clinics and hospital sitesin [place], [place], [place] and [place]. This disclosure is being madepursuant to the Care Everywhere program and may not contain all information available regarding this patient. Last updated 18.[facility] Allergies No known active allergies Medications * [...] Comments Blood Pressure 124/83 05/30/2018 1:06 PM SHOOTER HELPER Pulse 119 05/30/2018 1:06 PM SHOOTER HELPER Temperature 36.9 C (98.4 F) 05/30/2018 1:06 PM SHOOTER HELPER Respiratory Rate 18 05/30/2018 1:06 PM SHOOTER HELPER Oxygen Saturation 100% 05/30/2018 1:06 PM SHOOTER HELPER Inhaled Oxygen Concentration - - Weight 72.6 kg (160 lb) 05/30/2018 1:06 PM SHOOTER HELPER Height 180.3 cm (5' 11) 05/30/2018 1:06 PM SHOOTER HELPER Body Mass Index 22.32 05/30/2018 1:06 PM SHOOTER HELPER Plan of Treatment Health Maintenance Due Date [...] topic Insurance [employer] Care Teams Double Corner Cutter Relationship Specialty Start Date End Date Ez Enriquez MD [address] [place] [address] PCP - General 05/27/21
--- OUTSIDE RECORDS SUMMARY | 2025-04-21 10:16 | XMS_ITS | Clinical Summary ---
Author Organization [facility] Address [address] [place] [address] Care Team Providers Care Chief Service Dispatcher Name Role Phone Cristofer Gentile MD Primary Care Provider [phone] Allergies No known active allergies Medications traZODone [...] 05/30/2020 Assessment & Plan (05/30/2020 3:55 PM ELECTRICAL TESTS SUPERVISOR): Recently finished inpatient [place] on 04/26/20. He has been doing well since discharge. He is actively seeing a therapist and aftercare program. I recommend that he establish with a psychiatrist for medical management. ED (erectile dysfunction) of organic origin 02/2020 Assessment & Plan (05/30/2020 3:48 PM ELECTRICAL TESTS SUPERVISOR): New. We discussed options. Trial of [place] MAKENZIE Raynaud disease 05/30/2020 Assessment & Plan (05/30/2020 3:54 PM ELECTRICAL TESTS SUPERVISOR): Intermittent. Aggravated by cold. Advised to keep hands warm. SUSAN (generalized anxiety disorder) 08/11/2019 Assessment & Plan (05/30/2020 3:49 PM ELECTRICAL TESTS SUPERVISOR): SUSAN is controlled. Continue current treatment regimen. Regular aerobic exercise. Psychological condition will be reassessed at the next regular appointment. Actively seeing a counsellor. Assessment & Plan (08/11/2019 10:35 AM ELECTRICAL TESTS SUPERVISOR): SUSAN is newly identified. Regular aerobic exercise. Referral to psychological counseling. Begin SSRI Psychological condition will be reassessed in 3 months. Panic disorder 08/11/2019 Assessment & Plan (08/11/2019 10:35 AM ELECTRICAL TESTS SUPERVISOR): Panic is newly identified. Regular aerobic exercise. Referral to psychological counseling. Begin SSRI Psychological condition will be reassessed in 3 months. Prehypertension 02/08/2019 Assessment & Plan (05/30/2020 3:50 PM ELECTRICAL TESTS SUPERVISOR): PreHypertension is improving with lifestyle modifications Continue [...] for 40 seconds each. Aftercare instructions given. 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 file Not on file Not on file Obstetrics History Last Filed Vital Signs Vital Sign Reading Time Taken Comments Blood Pressure 110/62 05/30/2020 3:39 PM ELECTRICAL TESTS SUPERVISOR Pulse 110 05/30/2020 3:39 PM ELECTRICAL TESTS SUPERVISOR Temperature 36.8 C (98.2 F) 05/30/2020 3:39 PM ELECTRICAL TESTS SUPERVISOR Respiratory Rate 16 08/11/2019 10:2 3 AM ELECTRICAL TESTS SUPERVISOR Oxygen Saturation 98% 05/30/2020 3:39 PM ELECTRICAL TESTS SUPERVISOR Inhaled Oxygen Concentration - - Weight 70.7 kg (155 lb 14.4 oz) 05/30/2020 3:39 PM ELECTRICAL TESTS SUPERVISOR Height 181.6 cm (5' 11.5) 05/30/2020 3:39 PM CS T Body Mass Index 21.44 05/30/2020 3:39 PM ELECTRICAL TESTS SUPERVISOR Plan of Treatment Not on file Insurance [facility] EPO Care Teams Chief Service Dispatcher Relationship Specialty Start Date End Date Cristofer Gentile MD [address] [place] [address] DR Jaylyn COLLINS [address] [place] [id number] PCP - General Internal Medicine 02/03/18
[2025-04-21 10:19] LABS: Thyroid Stimulating Hormone Reflex 2.270 uIU/mL (0.465-4.68)
[2025-04-21 10:27] LABS: Cannabinoid Screen Urine Negative (Negative)
[2025-04-21] MEDS: chlordiazePOXIDE (*CRX) 25 MG CAPSULE 50 MG PO ×3 (11:37→23:45)
[2025-04-21] MEDS: LACTATED RINGERS 1,000 ML 999 ML IV CONT ×2 (11:40)
[2025-04-21] MEDS: LACTATED RINGERS 100 ML 999 ML IV CONT (11:41)
--- NOTE | 2025-04-21 13:28 | ADMGEN ---
This patient, Steve Figueroa, was admitted to [facility] Surg Room 314-01. Patient/family oriented to hospital policies and general routines including ID bracelet, bed and alarms, visiting hours, pain management, procedures, bathroom and other care routines, personal items, smoking policy, room service/diet, and visiting hours. Information on how to activate the Rapid Response Team has been discussed. Patient/Family are encouraged to report perceived risks to care and to ask questions if they do not understand what they are told or what they should do.
--- NOTE | 2025-04-21 14:49 | PM.IMHP ---
H&P: HPI History of Present Illness Date/Time: 04/21/25 14:49 Chief Complaint: Alcohol withdrawal Narrative: 39-year-old male with a past medical history of anxiety, alcohol abuse, smoker, suicide attempt presents to the ED on 04/21/2025 with complaints of alcohol withdrawal. Reports his last drink was 2 days ago after a recent relapse were he was consuming nearly a 5th of liquor daily. He has experienced progressive fatigue and weakness over last couple of days. He describes how he has to lay down on the floor at the bottom of the steps after walking down. He further endorses generalized body aches and trouble walking. Patient recently discharged from a rehab facility approximately 2 and half weeks ago. He was prescribed gabapentin for his neuropathy like symptoms and Disulfiram. He reportedly stopped taking the Disulfiram so he could resume drinking. Denies any suicidal ideation. Denies nausea vomiting Initial vital signs 131/96, 118 heart rate, respirations 20, afebrile and 99% on room air Lab significant for WBC 3.8, RBCs 4.45, anion gap 14, creatinine 0.63, glucose 145, AST 227, ALT 118, alk-phos 140. UA negative for infection. Ethanol level 261. Viral panel negative. Head CT no acute intracranial abnormality Review of Systems Review of Systems: All systems reviewed & are unremarkable except as noted in HPI and below PMFSH Past Medical History Medical History Depression BMI 20.0-20.9, adult Alcoholism Anxiety Surgical History Surgical History History of repair of right rotator cuff Family History Family History Father Hypertension Mother Dupuytrens contracture Breast cancer Sibling Hypertension Grandparent Depression Grandparent Anxiety Social History Social History Social History: Surrogate medical decision maker: Uelalioroxana Mohan, spouse. Code status: Full code. Years smoked: 15 Smoking status: Current every day smoker Tobacco type: e-cigarettes/vaping Second hand tobacco smoke exposure: Yes Alcohol intake: current Drinks per week: 70 Alcohol use details: Longstanding history of alcohol abuse. Began drinking again 11/20/2024, half of a 5th a day. Substance use: never Substance use type: does not use Do You Feel Safe in your Home?: Yes Lack of Transportation: No Lack of Food: Never True Current Housing: I Have Housing Concerned About Future Housing: No Difficulty Paying Gas/Electric Bills: No Difficulty Paying for Meds: No Currently Unemployed: No Education: Bachelor's Degree Difficulty w/ Childcare or Family Care: No Spiritual care concerns: No Meds Home Medications and Allergies Home Medications ?Medication ?Instructions ?Recorded ?Confirmed ?Type clonazepam 0.5 mg tablet 0.5 mg PO Q12H PRN anxiety 10/24/21 04/21/25 History acamprosate 333 mg tablet,delayed 666 mg PO TID 04/21/25 04/21/25 History release gabapentin 100 mg capsule 100 mg PO TID 04/21/25 04/21/25 History nicotine 14 mg/24 hr daily 1 patch transdermal Q24H PRN 04/21/25 04/21/25 History transdermal patch withdrawl Allergies Allergy/AdvReac Type Severity Reaction Status Date / Time No Known Allergies Allergy Verified 04/21/25 13:43 Vital Signs Vital Signs - 24 hr 04/21/25 08:35 04/21/25 08:38 04/21/25 08:45 Temperature 98.1 F Pulse Rate 118 H 118 H 117 H Respiratory Rate 20 17 19 Blood Pressure 131/96 H 131/96 H 131/89 Pulse Oximetry 99 100 97 Oxygen Delivery Room Air 04/21/25 09:00 04/21/25 09:30 04/21/25 09:58 Temperature Pulse Rate 114 H 111 H 103 H Respiratory Rate 17 14 15 Blood Pressure 128/94 H 117/91 H 129/97 H Pulse Oximetry 98 98 97 Oxygen Delivery 04/21/25 10:00 04/21/25 10:30 04/21/25 10:45 Temperature Pulse Rate 106 H 117 H 116 H Respiratory Rate 26 H 18 17 Blood Pressure 121/90 121/88 127/85 Pulse Oximetry 99 96 97 Oxygen Delivery 04/21/25 11:33 04/21/25 11:34 04/21/25 11:45 Temperature Pulse Rate 123 H 118 H 105 H Respiratory Rate 19 16 23 H Blood Pressure 119/93 H 124/87 Pulse Oximetry 95 99 100 Oxygen Delivery 04/21/25 11:46 04/21/25 12:00 04/21/25 12:01 Temperature Pulse Rate 104 H 103 H Respiratory Rate 22 H 22 H 19 Blood Pressure 113/85 Pulse Oximetry 100 100 98 Oxygen Delivery 04/21/25 12:16 04/21/25 12:37 04/21/25 12:45 Temperature Pulse Rate 103 H 115 H 111 H Respiratory Rate 19 23 H 16 Blood Pressure 116/86 Pulse Oximetry 99 100 100 Oxygen Delivery 04/21/25 12:46 04/21/25 13:27 04/21/25 14:34 Temperature 99.0 F Pulse Rate 111 H 92 Respiratory Rate 23 H 18 Blood Pressure 126/80 Pulse Oximetry 100 100 Oxygen Delivery Room Air H&P: Results Labs Labs: Short CBC 04/21/25 Range/Units 09:12 WBC 3.8 L (4.5-10.0) K/mm3 Hgb 14.9 (14.0-18.0) g/dL Hct 44.3 (42.0-52.0) % Plt Count 161 (150-375) k/mm3 BMP 04/21/25 09:12 Sodium 141 Potassium 3.6 Chloride 98 Carbon Dioxide 29 BUN 11 Creatinine 0.63 L Glucose 145 H Calcium 8.9 Liver Function 04/21/25 Range/Units 09:12 Total Bilirubin 0.7 (0.2-1.3) mg/dL AST 227 H (17-59) U/L ALT 118 H (6-50) U/L Alkaline Phosphatase 140 H (38-126) U/L Albumin 4.9 (3.5-5.1) g/dL Urine 04/21/25 Range/Units 09:12 Urine Color Yellow (Yellow) Urine Appearance Clear (Clear) Urine pH 6.0 (5.0-9.0) Ur Specific [place] 1.009 (1.001-1.035) Urine Protein Negative (Negative) mg/dL Urine Glucose (UA) Negative (Negative) mg/dL Assessment and Plan Assessment and plan (1) Alcohol withdrawal syndrome: Qualifiers: Complication of substance-induced condition: with unspecified complication Qualified Code(s): F10.939 - Alcohol use, unspecified with withdrawal, unspecified Code(s): F10.939 - Alcohol use, unspecified with withdrawal, unspecified Status: Acute Assessment and Plan: consuming nearly a 5th of liquor daily after recently relapsing. Has been to rehab several times. Patient recently discharged from a rehab facility approximately 2 and half weeks ago. He reportedly stopped taking his prescribed Disulfiram so he could resume drinking. Denies withdrawal seizures in the past. - daily ETOH use: Roughly a 5th daily - last drink: Today - CIWA protocol in place -diazepam 5 mg IV Q 2 p.r.n. - Librium 50 mg q.6 schedule - seizure precautions - neurochecks Q4H - IV fluids 3 L LR given in the ED. NS at 100 started on 04/21 - antiemetics PRN - readiness to quit: Interested in reentering rehab -care coordination consult (2) Alcoholism: Code(s): F10.20 - Alcohol dependence, uncomplicated Status: Acute Assessment and Plan: Consumes nearly a 5th of liquor daily. -folic acid 1 mg daily -thiamine 100 mg daily (3) Anxiety: Code(s): F41.9 - Anxiety disorder, unspecified Status: Acute Assessment and Plan: Takes clonazepam at home. Currently on hold while CIWA protocol is in place Plan Diet: Regular GI prophylaxis: NA DVT prophylaxis: SCDs lines/drains: PIV Fluids: 3 L LR given-NS at 100 started on 04/21 Code status: Full Quality VTE Prophylaxis VTE prophylaxis: mechanical ordered Hospitalist MIPS Advance Care Plan I have confirmed that the patient's Advanced Care Plan is present, code status is documented, or surrogate decision maker is listed in patient medical record.: Yes Medication Reconciliation I have utilized all available resources to obtain, update and review the patients current medications (includes all prescriptions, OTC, herbals, cannabis, and nutritional supplements).: Yes
[2025-04-21] MEDS: LORazepam (*CRX) 1 MG TABLET 2 MG PO ×2 (15:46→20:01)
[2025-04-21] MEDS: SODIUM CHLORIDE 0.9% IV 1,000 ML 100 ML IV CONT (15:58)
[2025-04-21] MEDS: GABAPENTIN 100 MG CAPSULE PO (16:00)
[2025-04-21] MEDS: NICOTINE (*PBKC) 21 MG PATCH 1 PATCH TRANSDERM (16:08)
[2025-04-21] MEDS: diazePAM INJ (*CRX) 10 MG/2 ML SYRINGE 5 MG IV PUSH ×2 (21:02→23:45)
[2025-04-22] VITALS (13 sets, daily range): BP systolic 127–130; BP diastolic 84–89; PULSE 89–118; RESP 16–20; TEMP 36.6–36.8; O2SAT 99–100
[2025-04-22] MEDS: SODIUM CHLORIDE 0.9% IV 1,000 ML 100 ML IV CONT ×3 (02:33→23:15)
[2025-04-22] MEDS: diazePAM INJ (*CRX) 10 MG/2 ML SYRINGE 5 MG IV PUSH ×2 (02:33→09:05)
[2025-04-22] MEDS: chlordiazePOXIDE (*CRX) 25 MG CAPSULE 50 MG PO ×4 (05:43→23:15)
[2025-04-22 06:18] LABS: Hematocrit 35.7 % (42.0-52.0); Hemoglobin 12.0 g/dL (14.0-18.0); Immature Granulocyte Percent A 0.4 % (0-0.5); Immature Platelet Fraction Pct 4.7 % (0.9-11.2); Lymphocytes Absolute Auto 1.65 K/mm3 (0.9-3.2); Mean Corpuscular HGB Conc 33.6 g/dl (32-36); Mean Corpuscular Hemoglobin 33.6 pg (26-34); Mean Corpuscular Volume 100.0 fl (80-100); Nucleated Red Blood Cells Absolute Auto 0.000 K/mm3 (0.0-0.012); Nucleated Red Blood Cells Perc 0.0 % (0.0-0.2); Platelet Count Result 123 k/mm3 (150-375); Red Blood Count 3.57 M/mm3 (4.6-6.20); White Blood Count 5.0 K/mm3 (4.5-10.0)
[2025-04-22 06:27] LABS: Alanine Aminotransferase 75 U/L (6-50); Albumin Level 3.7 g/dL (3.5-5.1); Alkaline Phosphatase 100 U/L (38-126); Anion Gap 6 mmol/L (4-12); Aspartate Amino Transferase 111 U/L (17-59); Bilirubin,Total 1.4 mg/dL (0.2-1.3); Blood Urea Nitrogen 11 mg/dL (9-20); Calcium 8.6 mg/dL (8.4-10.2); Carbon Dioxide 28 mmol/L (22-30); Chloride 100 mmol/L (98-107); Estimated CRCL calculation 178 ml/min; Estimated Glomerular Filt Rate > 60; Glucose 81 mg/dL (65-110); Magnesium 1.5 mg/dL (1.6-2.3); Potassium 3.6 mmol/L (3.4-5.0); Sodium 134 mmol/L (137-145); Total Protein 6.2 g/dL (6.3-8.2)
[2025-04-22] MEDS: FOLIC ACID 1 MG TABLET PO (09:09)
[2025-04-22] MEDS: THIAMINE HCL 100 MG TABLET PO (09:09)
[2025-04-22] MEDS: THERAPEUTIC MULTIVITAMINS/MINERALS TAB (*BKC) 1 TABLET PO (09:09)
[2025-04-22] MEDS: GABAPENTIN 100 MG CAPSULE PO ×3 (09:10→18:29)
[2025-04-22] MEDS: NICOTINE (*PBKC) 21 MG PATCH 1 PATCH TRANSDERM (09:24)
--- NOTE | 2025-04-22 10:27 | P.PNIM_ITS ---
Progress Note: A&P Assessment and Plan (1) Alcohol withdrawal syndrome: Qualifiers: Complication of substance-induced condition: with unspecified complication Qualified Code(s): F10.939 - Alcohol use, unspecified with withdrawal, unspecified Code(s): F10.939 - Alcohol use, unspecified with withdrawal, unspecified Status: Acute Assessment and Plan: consuming nearly a 5th of liquor daily after recently relapsing. Has been to rehab several times. Patient recently discharged from a rehab facility approximately 2 and half weeks ago. He reportedly stopped taking his prescribed Disulfiram so he could resume drinking. Denies withdrawal seizures in the past. - daily ETOH use: Roughly a 5th daily - last drink: Today - CIWA protocol in place - diazepam 5 mg IV Q 2 p.r.n. - Librium 50 mg q.6 schedule - seizure precautions - neurochecks Q4H - IV fluids 3 L LR given in the ED. NS at 100 started on 04/21 - antiemetics PRN - readiness to quit: Interested in reentering rehab -care coordination consult 04/22: Increased CIWA this AM at 22. Increased Diazepam 10 mg PRN 2-3 hrs, will reassess in the AM (q4 next step). -Pt diaphoretic and tachycardic upon my assessment, no other sx at this time. (2) Alcoholism: Code(s): F10.20 - Alcohol dependence, uncomplicated Status: Acute Assessment and Plan: Consumes nearly a 5th of liquor daily. -folic acid 1 mg daily -thiamine 100 mg daily (3) Anxiety: Code(s): F41.9 - Anxiety disorder, unspecified Status: Acute Assessment and Plan: Takes clonazepam at home. Currently on hold while CIWA protocol is in place -See above Plan Diet: Regular GI prophylaxis: NA DVT prophylaxis: SCDs lines/drains: PIV Fluids: 3 L LR given-NS at 100 started on 04/21 Code status: Yard Supervisor Spent With Patient Time: 30 Subjective Date/time seen: 04/22/25 1007 Interval history: Pt lying in bed upon my arrival. Pt reports that he was feeling more anxious but was given medicine around an hour ago and is feeling much better. Pt reports that he has gone through withdrawal like this before, 1.5 months ago. He also reports recent rehab stent, 2 weeks ago. Pt denies SOB, CP, or any other sx. Continues to be tachycardic and diaphoretic. Review of Systems Review of Systems: All systems reviewed & are unremarkable except as noted in HPI and below Exam Narrative: GENERAL: Mildly ill-appearing, dysthymic, but no acute distress HEAD: Normocephalic, atraumatic. ENT:? Mucous membranes moist. CHEST: Clear to auscultation.? No respiratory distress. HEART: Tachycardic rate and regular rhythm. ? Normal peripheral pulses. ABDOMEN: Soft, nontender, nondistended. EXTREMITIES: Normal range of motion. No peripheral edema. SKIN: Warm, diaphoretic, normal color NEURO: Alert and oriented x2-3. Visibly tremulous and upper extremity moderate ataxia noted on brief neurologic exam PSYCH: Dysthymic mood, denies HI SI Objective Data Vital Signs Vital Signs: Vital Signs - 24 hr 04/21/25 10:30 04/21/25 10:45 04/21/25 11:33 Temperature Pulse Rate 117 H 116 H 123 H Pulse Rate [Apical Monitor] Pulse Rate [Right Apical Palpation] Respiratory Rate 18 17 19 Blood Pressure 121/88 127/85 119/93 H Pulse Oximetry 96 97 95 Oxygen Delivery 04/21/25 11:34 04/21/25 11:45 04/21/25 11:46 Temperature Pulse Rate 118 H 105 H Pulse Rate [Apical Monitor] Pulse Rate [Right Apical Palpation] Respiratory Rate 16 23 H 22 H Blood Pressure 124/87 Pulse Oximetry 99 100 100 Oxygen Delivery 04/21/25 12:00 04/21/25 12:01 04/21/25 12:16 Temperature Pulse Rate 104 H 103 H 103 H Pulse Rate [Apical Monitor] Pulse Rate [Right Apical Palpation] Respiratory Rate 22 H 19 19 Blood Pressure 113/85 Pulse Oximetry 100 98 99 Oxygen Delivery 04/21/25 12:37 04/21/25 12:45 04/21/25 12:46 Temperature Pulse Rate 115 H 111 H 111 H Pulse Rate [Apical Monitor] Pulse Rate [Right Apical Palpation] Respiratory Rate 23 H 16 23 H Blood Pressure 116/86 Pulse Oximetry 100 100 100 Oxygen Delivery 04/21/25 13:27 04/21/25 14:34 04/21/25 16:00 Temperature 99.0 F Pulse Rate 92 111 H Pulse Rate [Apical Monitor] Pulse Rate [Right Apical Palpation] Respiratory Rate 18 Blood Pressure 126/80 Pulse Oximetry 100 Oxygen Delivery Room Air 04/21/25 19:59 04/21/25 20:00 04/21/25 20:08 Temperature Pulse Rate 125 H Pulse Rate [Apical Monitor] Pulse Rate [Right Apical Palpation] 121 H Respiratory Rate Blood Pressure Pulse Oximetry 100 Oxygen Delivery Room Air 04/21/25 20:08 04/21/25 23:44 04/22/25 00:00 Temperature 99.5 F Pulse Rate 117 H 100 Pulse Rate [Apical Monitor] Pulse Rate [Right Apical Palpation] 108 H Respiratory Rate 14 Blood Pressure 138/84 Pulse Oximetry 96 Oxygen Delivery 04/22/25 02:31 04/22/25 04:00 04/22/25 04:00 Temperature 97.9 F Pulse Rate 91 91 Pulse Rate [Apical Monitor] Pulse Rate [Right Apical Palpation] 109 H Respiratory Rate 20 Blood Pressure 127/89 Pulse Oximetry 100 Oxygen Delivery 04/22/25 04:00 04/22/25 08:57 Temperature Pulse Rate Pulse Rate [Apical Monitor] 102 H Pulse Rate [Right Apical Palpation] 89 Respiratory Rate Blood Pressure Pulse Oximetry Oxygen Delivery Intake/Output Intake/Output: Intake & Output 04/19/25 04/20/25 04/21/25 04/22/25 23:59 23:59 23:59 23:59 Intake Total 2440 1480 Balance 2440 1480 Meds/Results Medications: Active Medications Generic Name Dose Route Start Last Admin Trade Name Freq PRN Reason Stop Dose Admin Chlordiazepoxide HCl 50 mg 04/21/25 20:40 04/22/25 05:43 Chlordiazepoxide (*Crx) 25 Mg Capsule PO 50 mg Q6HR YELENA Administration Diazepam 5 mg 04/21/25 20:47 04/22/25 09:05 Diazepam Inj (*Crx) 10 Mg/2 Ml Syringe IV PUSH 5 mg Q2H PRN Administration Alcohol Withdrawal Folic Acid 1 mg 04/22/25 09:00 04/22/25 09:09 Folic Acid 1 Mg Tablet PO 1 mg DAILY YELENA Administration Gabapentin 100 mg 04/21/25 17:00 04/22/25 09:10 Gabapentin 100 Mg Capsule PO 100 mg TID YELENA Administration Sodium Chloride 1,000 mls @ 100 mls/hr 04/21/25 15:35 04/22/25 02:33 Normal Saline Iv IV CONT 100 mls/hr .Q10H YELENA Administration Multivitamins/Calcium 1 tablet 04/22/25 09:00 04/22/25 09:09 Therapeutic Multivitamins/Minerals Tab (*Bkc) PO 1 tablet DAILY YELENA Administration Nicotine 1 patch 04/21/25 15:50 04/22/25 09:24 Nicotine (*Pbkc) 21 Mg Patch TRANSDERM 1 patch DAILY YELENA Administration Ondansetron HCl 4 mg 04/21/25 14:46 Ondansetron Inj 4 Mg/2 Ml Vial IV PUSH Q4H PRN Nausea And Vomiting Thiamine HCl 100 mg 04/22/25 09:00 04/22/25 09:09 Thiamine Hcl 100 Mg Tablet PO 100 mg DAILY YELENA Administration Radiology Results: ITS Impressions Head CT 04/21/25 09:47 Impression: 1.No acute intracranial abnormality. Labs Labs: Laboratory Results - last 24 hr 04/21/25 04/22/25 09:12 05:52 WBC 5.0 RBC 3.57 L Hgb 12.0 L Hct 35.7 L MCV 100.0 MCH 33.6 MCHC 33.6 RDW 12.7 Plt Count 123 L MPV 10.7 H Immature Gran % (Auto) 0.4 Neut % (Auto) 55.9 Lymph % (Auto) 33.1 [place] % (Auto) 7.0 Eos % (Auto) 3.0 Baso % (Auto) 0.6 Lymph # (Auto) 1.65 [place] # (Auto) 0.4 Eos # (Auto) 0.2 Baso # (Auto) 0.0 Abs Immat Gran (auto) 0.02 Absolute Neuts (auto) 2.8 Absolute Nucleated RBC 0.000 Nucleated RBC % 0.0 % Immature Plt Fraction 4.7 Sodium 134 L Potassium 3.6 Chloride 100 Carbon Dioxide 28 Anion Gap 6 BUN 11 Creatinine 0.46 L Estim Creat Clear Calc 178 Estimated GFR > 60 Glucose 81 Calcium 8.6 Phosphorus 3.3 Magnesium 1.5 L Total Bilirubin 1.4 H Direct Bilirubin 0.0 AST 111 H ALT 75 H Alkaline Phosphatase 100 Total Protein 6.2 L Albumin 3.7 Urine Opiates Screen Negative Urine Methadone Screen Negative Ur Barbiturates Screen Negative Ur Phencyclidine Scrn Negative Ur Amphetamine Screen Negative U Benzodiazepines Scrn Negative Urine Cocaine Screen Negative U Cannabinoids Screen Negative Quality VTE Prophylaxis VTE prophylaxis: mechanical ordered
[2025-04-22] MEDS: diazePAM INJ (*CRX) 10 MG/2 ML SYRINGE IV PUSH ×3 (11:36→15:53)
[2025-04-22] MEDS: ONDANSETRON INJ 4 MG/2 ML VIAL IV PUSH (15:53)
[2025-04-22] MEDS: LORazepam (*CRX) 1 MG TABLET 2 MG PO (18:29)
[2025-04-23] VITALS: PULSE 100
[2025-04-23] MEDS: LORazepam (*CRX) 1 MG TABLET 2 MG PO (01:53)
--- NOTE | 2025-04-23 02:54 | PC.NURSE ---
Daylight Savings Time For Daylight Savings Time Ending in the Fall - Clocks are moved back. For Daylight Savings Time Beginning in the Spring - Clocks are moved ahead. For [facility], the time of change occurs at 0200 hrs. Time is taken from the fast food server. This entry on the patient's chart recognizes the change in time reflected during documentation. Example: 2 entries for vital signs may be charted for 0200 hrs.
[2025-04-23] MEDS: diazePAM INJ (*CRX) 10 MG/2 ML SYRINGE IV PUSH (04:40)
[2025-04-23 06:00] VITALS: BP 111/84; PULSE 104; RESP 18; TEMP 36.7; O2SAT 99
[2025-04-23] MEDS: chlordiazePOXIDE (*CRX) 25 MG CAPSULE 50 MG PO ×2 (06:10→12:35)
[2025-04-23 06:12] LABS: Hematocrit 37.9 % (42.0-52.0); Hemoglobin 12.5 g/dL (14.0-18.0); Immature Granulocyte Percent A 0.4 % (0-0.5); Immature Platelet Fraction Pct 6.5 % (0.9-11.2); Lymphocytes Absolute Auto 1.31 K/mm3 (0.9-3.2); Mean Corpuscular HGB Conc 33.0 g/dl (32-36); Mean Corpuscular Hemoglobin 33.3 pg (26-34); Mean Corpuscular Volume 101.1 fl (80-100); Nucleated Red Blood Cells Absolute Auto 0.000 K/mm3 (0.0-0.012); Nucleated Red Blood Cells Perc 0.0 % (0.0-0.2); Platelet Count Result 120 k/mm3 (150-375); Red Blood Count 3.75 M/mm3 (4.6-6.20); White Blood Count 4.7 K/mm3 (4.5-10.0)
[2025-04-23 06:23] LABS: Alanine Aminotransferase 61 U/L (6-50); Albumin Level 3.9 g/dL (3.5-5.1); Alkaline Phosphatase 103 U/L (38-126); Anion Gap 7 mmol/L (4-12); Aspartate Amino Transferase 72 U/L (17-59); Bilirubin,Total 0.8 mg/dL (0.2-1.3); Blood Urea Nitrogen 9 mg/dL (9-20); Calcium 8.6 mg/dL (8.4-10.2); Carbon Dioxide 24 mmol/L (22-30); Chloride 103 mmol/L (98-107); Estimated CRCL calculation 171 ml/min; Estimated Glomerular Filt Rate > 60; Glucose 92 mg/dL (65-110); Potassium 3.4 mmol/L (3.4-5.0); Sodium 134 mmol/L (137-145); Total Protein 6.5 g/dL (6.3-8.2)
[2025-04-23 08:00] VITALS: PULSE 97
--- NOTE | 2025-04-23 08:29 | PM.IMPN ---
Progress Note: A&P Assessment and Plan (1) Alcohol withdrawal syndrome: Qualifiers: Complication of substance-induced condition: with unspecified complication Qualified Code(s): F10.939 - Alcohol use, unspecified with withdrawal, unspecified Code(s): F10.939 - Alcohol use, unspecified with withdrawal, unspecified Status: Acute Assessment and Plan: consuming nearly a 5th of liquor daily after recently relapsing. Has been to rehab several times. Patient recently discharged from a rehab facility approximately 2 and half weeks ago. He reportedly stopped taking his prescribed Disulfiram so he could resume drinking. Denies withdrawal seizures in the past. - daily ETOH use: Roughly a 5th daily - last drink: Today - CIWA protocol in place - diazepam 5 mg IV Q 2 p.r.n. - Librium 50 mg q.6 schedule - seizure precautions - neurochecks Q4H - IV fluids 3 L LR given in the ED. NS at 100 started on 04/21 - antiemetics PRN - readiness to quit: Interested in reentering rehab -care coordination consult 04/22: Increased CIWA this AM at 22. Increased Diazepam 10 mg PRN 2-3 hrs, will reassess in the AM (q4 next step). -Pt diaphoretic and tachycardic upon my assessment, no other sx at this time. RN called and reported elevated CIWA scores despite increase of diazepam IV from 5mg to 10mg q2-3h. Adding on Lorazepam 2mg PO q4 as this combination looks as if it helped the pt during his last acute admission. Will continue to monitor. 04/23: (2) Alcoholism: Code(s): F10.20 - Alcohol dependence, uncomplicated Status: Acute Assessment and Plan: Consumes nearly a 5th of liquor daily. -folic acid 1 mg daily -thiamine 100 mg daily (3) Anxiety: Code(s): F41.9 - Anxiety disorder, unspecified Status: Acute Assessment and Plan: Takes clonazepam at home. Currently on hold while CIWA protocol is in place -See above Plan Diet: Regular GI prophylaxis: NA DVT prophylaxis: SCDs lines/drains: PIV Fluids: 3 L LR given-NS at 100 started on 04/21 Code status: Hand Plug Shaper Spent With Patient Time: 30 Subjective Date/time seen: 04/23/25 08:29 Interval history: Pt lying in bed upon my arrival. Pt reports that he was feeling more anxious but was given medicine around an hour ago and is feeling much better. Pt reports that he has gone through withdrawal like this before, 1.5 months ago. He also reports recent rehab stent, 2 weeks ago. Pt denies SOB, CP, or any other sx. Continues to be tachycardic and diaphoretic. Review of Systems Review of Systems: All systems reviewed & are unremarkable except as noted in HPI and below Exam Narrative: GENERAL: Mildly ill-appearing, dysthymic, but no acute distress HEAD: Normocephalic, atraumatic. ENT:? Mucous membranes moist. CHEST: Clear to auscultation.? No respiratory distress. HEART: Tachycardic rate and regular rhythm. ? Normal peripheral pulses. ABDOMEN: Soft, nontender, nondistended. EXTREMITIES: Normal range of motion. No peripheral edema. SKIN: Warm, diaphoretic, normal color NEURO: Alert and oriented x2-3. Visibly tremulous and upper extremity moderate ataxia noted on brief neurologic exam PSYCH: Dysthymic mood, denies HI SI Objective Data Vital Signs Vital Signs: Vital Signs - 24 hr 04/22/25 11:28 04/22/25 12:05 04/22/25 13:30 Temperature Pulse Rate 100 Pulse Rate [Apical Monitor] 93 112 H Respiratory Rate Blood Pressure Pulse Oximetry 04/22/25 14:00 04/22/25 15:47 04/22/25 16:02 Temperature 97.8 F Pulse Rate 104 H 118 H Pulse Rate [Apical Monitor] 114 H Respiratory Rate 16 Blood Pressure 128/84 130/88 Pulse Oximetry 100 04/22/25 20:00 04/22/25 20:27 04/23/25 00:00 Temperature 98.2 F Pulse Rate 106 H 106 H 100 Pulse Rate [Apical Monitor] Respiratory Rate 18 Blood Pressure 127/86 Pulse Oximetry 99 04/23/25 06:00 Temperature 98.1 F Pulse Rate 104 H Pulse Rate [Apical Monitor] Respiratory Rate 18 Blood Pressure 111/84 Pulse Oximetry 99 Intake/Output Intake/Output: Intake & Output 04/20/25 04/21/25 04/22/25 04/23/25 23:59 23:59 23:59 22:59 Intake Total 2440 3795 Output Total 600 Balance 2440 3795 -600 Meds/Results Medications: Active Medications Generic Name Dose Route Start Last Admin Trade Name Freq PRN Reason Stop Dose Admin Chlordiazepoxide HCl 50 mg 04/21/25 20:40 04/23/25 06:10 Chlordiazepoxide (*Crx) 25 Mg Capsule PO 50 mg Q6HR YELENA Administration Diazepam 10 mg 04/22/25 11:00 04/23/25 04:40 Diazepam Inj (*Crx) 10 Mg/2 Ml Syringe IV PUSH 10 mg Q2-3H PRN Administration Alcohol Withdrawal Folic Acid 1 mg 04/22/25 09:00 04/22/25 09:09 Folic Acid 1 Mg Tablet PO 1 mg DAILY YELENA Administration Gabapentin 100 mg 04/21/25 17:00 04/22/25 18:29 Gabapentin 100 Mg Capsule PO 100 mg TID YELENA Administration Sodium Chloride 1,000 mls @ 100 mls/hr 04/21/25 15:35 04/22/25 23:15 Normal Saline Iv IV CONT 100 mls/hr .Q10H YELENA Administration Lorazepam 2 mg 04/22/25 16:16 04/23/25 01:53 CDT Lorazepam (*Crx) 1 Mg Tablet PO 2 mg Q4H PRN Administration Anxiety Multivitamins/Calcium 1 tablet 04/22/25 09:00 04/22/25 09:09 Therapeutic Multivitamins/Minerals Tab (*Bkc) PO 1 tablet DAILY YELENA Administration Nicotine 1 patch 04/21/25 15:50 04/22/25 09:24 Nicotine (*Pbkc) 21 Mg Patch TRANSDERM 1 patch DAILY YELENA Administration Ondansetron HCl 4 mg 04/21/25 14:46 04/22/25 15:53 Ondansetron Inj 4 Mg/2 Ml Vial IV PUSH 4 mg Q4H PRN Administration Nausea And Vomiting Thiamine HCl 100 mg 04/22/25 09:00 04/22/25 09:09 Thiamine Hcl 100 Mg Tablet PO 100 mg DAILY YELENA Administration Radiology Results: ITS Impressions Head CT 04/21/25 09:47 Impression: 1.No acute intracranial abnormality. Labs Labs: Laboratory Results - last 24 hr 04/23/25 04/23/25 05:31 05:32 WBC 4.7 RBC 3.75 L Hgb 12.5 L Hct 37.9 L MCV 101.1 H MCH 33.3 MCHC 33.0 RDW 12.5 Plt Count 120 L MPV 11.0 H Immature Gran % (Auto) 0.4 Neut % (Auto) 60.3 Lymph % (Auto) 28.0 [place] % (Auto) 6.6 Eos % (Auto) 4.5 H Baso % (Auto) 0.2 Lymph # (Auto) 1.31 [place] # (Auto) 0.3 Eos # (Auto) 0.2 Baso # (Auto) 0.0 Abs Immat Gran (auto) 0.02 Absolute Neuts (auto) 2.8 Absolute Nucleated RBC 0.000 Nucleated RBC % 0.0 % Immature Plt Fraction 6.5 Sodium 134 L Potassium 3.4 Chloride 103 Carbon Dioxide 24 Anion Gap 7 BUN 9 Creatinine 0.48 L Estim Creat Clear Calc 171 Estimated GFR > 60 Glucose 92 Calcium 8.6 Total Bilirubin 0.8 AST 72 H ALT 61 H Alkaline Phosphatase 103 Total Protein 6.5 Albumin 3.9 Quality VTE Prophylaxis VTE prophylaxis: mechanical ordered
[2025-04-23] MEDS: FOLIC ACID 1 MG TABLET PO (09:08)
[2025-04-23] MEDS: NICOTINE (*PBKC) 21 MG PATCH 1 PATCH TRANSDERM (09:08)
[2025-04-23] MEDS: GABAPENTIN 100 MG CAPSULE PO ×2 (09:08→12:34)
[2025-04-23] MEDS: THERAPEUTIC MULTIVITAMINS/MINERALS TAB (*BKC) 1 TABLET PO (09:08)
[2025-04-23] MEDS: THIAMINE HCL 100 MG TABLET PO (09:08)
[2025-04-23 12:00] VITALS: PULSE 102
--- NOTE | 2025-04-23 14:16 | PM.DS ---
DS: Admitting Diagnosis Discharge Date 04/23/2025 Admitting Diagnosis Etoh withdrawal DS: Discharge Diagnosis Discharge Diagnosis (1) Alcohol withdrawal syndrome: Qualifiers: Complication of substance-induced condition: with unspecified complication Qualified Code(s): F10.939 - Alcohol use, unspecified with withdrawal, unspecified Code(s): F10.939 - Alcohol use, unspecified with withdrawal, unspecified Status: Acute Assessment and Plan: consuming nearly a 5th of liquor daily after recently relapsing. Has been to rehab several times. Patient recently discharged from a rehab facility approximately 2 and half weeks ago. He reportedly stopped taking his prescribed Disulfiram so he could resume drinking. Denies withdrawal seizures in the past. - daily ETOH use: Roughly a 5th daily - last drink: Today - CIWA protocol in place - diazepam 5 mg IV Q 2 p.r.n. - Librium 50 mg q.6 schedule - seizure precautions - neurochecks Q4H - IV fluids 3 L LR given in the ED. NS at 100 started on 04/21 - antiemetics PRN - readiness to quit: Interested in reentering rehab -care coordination consult 04/22: Increased CIWA this AM at 22. Increased Diazepam 10 mg PRN 2-3 hrs, will reassess in the AM (q4 next step). -Pt diaphoretic and tachycardic upon my assessment, no other sx at this time. RN called and reported elevated CIWA scores despite increase of diazepam IV from 5mg to 10mg q2-3h. Adding on Lorazepam 2mg PO q4 as this combination looks as if it helped the pt during his last acute admission. Will continue to monitor. 04/23: Pt much better today, HR 98, no anxious affect, no diaphoresis. Most recent CIWA score of 2 today. Pt wanting to be discharged. Pt has not needed to use any withdrawal medication during this shift other than his scheduled Librium. -Pt to continue his clonazepam once he is home if needed. As well as his daily thiamine and folic acid. -Pt to continue to use [facility] resources for substance abuse/AA meeting resources. -Pt also has therapist appt on 04/26 and has an established psychiatrist that he plans to make a f/u appt with. (2) Alcoholism: Code(s): F10.20 - Alcohol dependence, uncomplicated Status: Acute Assessment and Plan: Consumes nearly a 5th of liquor daily. -folic acid 1 mg daily -thiamine 100 mg daily -See above (3) Anxiety: Code(s): F41.9 - Anxiety disorder, unspecified Status: Acute Assessment and Plan: Takes clonazepam at home. Currently on hold while CIWA protocol is in place -See above -Will continue upon discharge Plan Discharge home with Eulalio. Pt with plans for serial meetings as well as the plan to make a more permanent plan for sobriety. Pt with plans to get back into the workforce as well as continue with his therapist and psychiatrist. DS: Summary Hospital Course Reason for hospitalization: Etoh withdrawal Hospital Course: Pt to the ED on 04/21/2025 for alcohol withdrawal. Pt was here for the same in Feb 2025. Pt with a baseline of drinking a fifth a day per ED charting. Pt most recently was in a rehab program for approx 2.5 weeks and was discharged. Pt was rx gabapentin for etoh neuropathy and Disulfiram for etoh abuse disorder. He stopped taking the Disulfiram so that he could resume drinking etoh. Most recent drink prior to ED reportedly 04/19. He has experienced progressive fatigue and weakness over last couple of days. He describes how he has to lay down on the floor at the bottom of the steps after walking down. He further endorses generalized body aches and trouble walking. Patient recently discharged from a rehab facility approximately 2 and half weeks ago. He was prescribed gabapentin for his neuropathy like symptoms and Disulfiram. He reportedly stopped taking the Disulfiram so he could resume drinking. Denies any suicidal ideation. Denies nausea vomiting Initial vital signs 131/96, 118 heart rate, respirations 20, afebrile and 99% on room air. Lab significant for WBC 3.8, RBCs 4.45, anion gap 14, creatinine 0.63, glucose 145, AST 227, ALT 118, alk-phos 140. UA negative for infection. Ethanol level 261. Viral panel negative. Head CT no acute intracranial abnormality. In hospital evaluation: Pt with close CIWA, seizure, and neurological evaluation throughout his stay. Pt was initially ordered Librium 50mg q6hr and diazepam 5mg IV q2 PRN upon admission on 04/21. Pt CIWA reached up to 22 on 04/22 and warranted an increase of medication. Pt's diazepam was then increased to 10mg q2-3hrs. His CIWA was still high with the lowest score being 17 so the addition of Ativan 2mg PO q4hr was added to the already defined medication regimen. This new regimen seemed to balance the pt out as he did not need any more of the PRN dosing the shift of day of discharge on 04/23. Pt discharged with no new medication except a refill on thiamine and folic acid. Recs to continue his clonazepam 0.5mg PRN home dose as needed. The patient was full code during the admission. He is discharged to home today with care supported by his Eulalio. Discussion held with him about tools to use for continued cessation of etoh consumption, he is ready to change his path and plans to continue to attend meetings as well as get back into rehab. Pt was advised to follow-up with PCP as well as his therapist and psychiatrist to which he understands and agrees. Pt encouraged to come back to the ED with any withdrawal sx. All their questions and concerns were answered to satisfaction. Status at Discharge Overall status at discharge: patient is progressing back to baseline Time Spent with Patient Time attestation: Total time spent providing and/or coordinating discharge services: 45 Exam Const: General: comfortable and no acute distress HENMT: Face/Nose/Sinus: Normal nares present Mouth: Yes moist mucous membranes Eyes: General: appearance normal, both eyes and all related structures Sclera: sclerae normal Pupils: Equal, round and reactive pupils present Neck: Neck: supple Resp: Effort & Inspection: normal respiratory effort Auscultation: clear to auscultation bilaterally Cardio: Rate: regular rate Rhythm: regular rhythm GI: Inspection: non-distended GI Palp: No Tenderness to palpation present (GI) Auscultation: normal bowel sounds Skin: General skin exam: normal color and no rashes or lesions noted Neuro: Motor exam (neuro): Normal motor muscle tone present throughout Sensory Exam: normal sensation Extrem: General: normal to inspection Psych: Mental Status: mental status grossly normal Affect: normal affect DS: Data Data Completed and Pending Completed studies during hospitalization: Labs, urine, imaging Labs on day of discharge: Labs from last 24 hours 04/23/25 04/23/25 05:32 05:31 WBC 4.7 RBC 3.75 L Hgb 12.5 L Hct 37.9 L MCV 101.1 H MCH 33.3 MCHC 33.0 RDW 12.5 Plt Count 120 L MPV 11.0 H Immature Gran % (Auto) 0.4 Neut % (Auto) 60.3 Lymph % (Auto) 28.0 [place] % (Auto) 6.6 Eos % (Auto) 4.5 H Baso % (Auto) 0.2 Lymph # (Auto) 1.31 [place] # (Auto) 0.3 Eos # (Auto) 0.2 Baso # (Auto) 0.0 Abs Immat Gran (auto) 0.02 Absolute Neuts (auto) 2.8 Absolute Nucleated RBC 0.000 Nucleated RBC % 0.0 % Immature Plt Fraction 6.5 Sodium 134 L Potassium 3.4 Chloride 103 Carbon Dioxide 24 Anion Gap 7 BUN 9 Creatinine 0.48 L Estim Creat Clear Calc 171 Estimated GFR > 60 Glucose 92 Calcium 8.6 Total Bilirubin 0.8 AST 72 H ALT 61 H Alkaline Phosphatase 103 Total Protein 6.5 Albumin 3.9 Discharge Plan Discharge Attending physician on discharge: Bridger Blanton Consulting providers: Priti Love Discharging Clinician: Priti Love Anticipated Discharge Date/Time: 04/23/25 13:00 Patient Disposition: Home Activity: as tolerated Diet: regular Discharge Instructions: 1. Continue to take your medication as prescribed, including your clonazepam when needed. 2. Continue to follow-up with your therapist and psychiatrist as well as using your alistair to make it to meetings when in need. 3. Report back to the ED [facility] if you are experiencing any withdrawal symptoms again. Continue to check your blood pressure and blood sugar at home if applicable. Keep your scheduled appts with your primary care provider and any specialist that you may see. Return to the emergency department if you develop sudden shortness of breath, chest pain, a fever of greater than 101.5, or nausea, vomiting, abd pain, or diarrhea that does not go away. Follow-up with your primary care provider within 1-2 weeks, they will want to be updated on your inpatient stay in the hospital. Thank you for [facility] for your healthcare needs. Patient Instructions: Abuse of Alcohol (DC), Alcohol Withdrawal (DC), Alcohol Dependence (DC) Patient Language: Guamanian Stand Alone Forms: General Discharge Information Follow-up/Referrals: Ez Enriquez MD [Primary Care Provider, Family Practice] - 1 Week Discharge Medications: New folic acid 1 mg Tablet 1 mg PO DAILY Qty: 30 0RF thiamine HCl (vitamin B1) [Vitamin B-1] 100 mg Tablet 100 mg PO DAILY Qty: 30 0RF Continued clonazepam 0.5 mg tablet 0.5 mg PO Q12H PRN (Reason: anxiety) acamprosate 333 mg tablet,delayed release (DR/EC) 666 mg PO TID gabapentin 100 mg capsule 100 mg PO TID nicotine 14 mg/24 hr patch 24 hour 1 patch transdermal Q24H PRN (Reason: withdrawl) Date of admission: 04/21/25 11:34 Primary Care Provider: Ez Enriquez Admitting Provider: Brandon Roth Attending physician on admission: Brandon Roth Condition: Stable Quality VTE Prophylaxis VTE prophylaxis: mechanical ordered Hospitalist MIPS Heart Failure (Exclusion) Patient has history of Heart Transplant or Left Ventricular Assistive Device?: No IF YES, STOP HERE Heart Failure (Qualifier) Patient has current or prior documentation of LVEF less than or equal to 40%, or mod/servere depressed LVSF?: No IF NO, STOP HERE
== END 2025-04-23 14:05 | disposition home or self-care (01) ==
LOC: ANHED 11:46 → ANH3MEDSUR 15:26
PROVIDERS: Nurse Practitioner Adult Health; Student in an Organized Health Care Education/Training Program; Admitting Provider Internal Medicine; Emergency Provider Nurse Practitioner; PCP Family Medicine; Visit Provider Internal Medicine
DX: F10.939 Alcohol use, unspecified with withdrawal, unspecified (principal); Y90.8 Blood alcohol level of 240 mg/100 ml or more; F10.20 Alcohol dependence, uncomplicated; F41.9 Anxiety disorder, unspecified; R00.0 Tachycardia, unspecified; F17.290 Nicotine dependence, other tobacco product, uncomplicated; Z20.822 Contact with and (suspected) exposure to COVID-19; Z91.51 Personal history of suicidal behavior; Z80.3 Family history of malignant neoplasm of breast; Z82.49 Family history of ischemic heart disease and other diseases of the circulatory system; Z81.8 Family history of other mental and behavioral disorders
CPT/HCPCS: 36415; 70450; 80053; 80307; 81003; 82077; 82248; 83735; 84100; 84443; 85025; 85055; 87637; 93005; 96361; 96374; 96375; 96376; 99285; A9270; G0378; J2405; J3360; J7030; J7120